=== PATIENT | female | born 1970 | race Hispanic/Latino ===

== ENCOUNTER 2017-04-26 21:45 | Emergency (ER) | payer MEDICAID ==
[2017-04-26 22:16] VITALS: BP 158/103
[2017-04-26] MEDS ORDERED: DILAUDID IM ONE (23:29)
--- NOTE | 2017-04-26 23:34 | Emergency Department Report ---
ED ENT HPI - General Chief complaint: Dental/Oral Stated complaint: MOUTH PAIN/HIGH BP Time Seen by Provider: 04/26/17 23:13 Source: patient Mode of arrival: Ambulatory Limitations: No Limitations - History of Present Illness Initial comments: Patient comes into the ER today with complaints of mouth pain. Patient states that 3 days ago she had all of her bottom teeth extracted. Patient was not placed on antibiotics nor given any pain medications because patient states that she is in pain management. Patient states that she currently takes Lortab 4 times a day through pain management for her chronic back pain. Patient also requesting a referral to orthopedic for her back. Patient states that she called her dentist and the dentist recommended she come to the ER so that may be she can get a pain shot to alleviate some of her pain so that her pain pills may be able to start working better. complaint: other (mouth pain) - Related Data Home Medications Medication Instructions Recorded Confirmed Last Taken Sucralfate [Carafate] 1 gm PO TID 07/08/13 03/23/16 02/23/16 Multivitamin [Multi-Vitamin Daily] 1 each PO DAILY 03/19/14 03/23/16 02/23/16 Pantoprazole [Protonix TAB] 40 mg PO QDAY 03/21/14 03/23/16 02/23/16 Duloxetine HCl [Cymbalta] 40 mg PO DAILY 11/30/15 03/23/16 07/22/16 Nortriptyline [Pamelor] 75 mg PO QDAY 11/30/15 03/23/16 02/23/16 ALPRAZolam [Xanax TAB] 1 mg PO TID 03/23/16 03/23/16 07/23/16 Gabapentin [Neurontin] 900 mg PO TID 03/23/16 03/23/16 Unknown Lipitor 20 mg PO QHS 03/23/16 03/23/16 Unknown Lopid 600 mg PO BID 03/23/16 03/23/16 Unknown Previous Rx's Medication Instructions Recorded Last Taken Type Aspirin [Adult Low Dose Aspirin EC] 81 mg PO DAILY #30 tablet. 02/19/16 13:52 Rx Lisinopril/Hydrochlorothiazide 1 tab PO QDAY #30 tab 02/19/16 Unknown Rx [Zestoretic 20-12.5 mg] Metoprolol [Lopressor TAB] 12.5 mg PO BID #15 tablet 02/19/16 07/22/16 Rx Simvastatin [Zocor TAB] 40 mg PO QHS #30 tablet 02/19/16 02/23/16 Rx HYDROcodone/APAP 5-325 [[place] 1 each PO Q6HR PRN #14 tablet 03/23/16 Unknown Rx 5/325] Oxycodone HCl/Acetaminophen 1 each PO Q6HR PRN #20 tablet 06/22/16 07/22/16 Rx [Percocet 7.5/325 mg] ISOSORBIDE MONOnitrate [Imdur ER] 30 mg PO DAILY #15 tab.er.24h 11/01/16 Unknown Rx Amoxicillin/K Clav Tab [Augmentin 1 tab PO Q12HR #20 tab 04/26/17 Unknown Rx 875 mg] Allergies Allergy/AdvReac Type Severity Reaction Status Date / Time cyclobenzaprine HCl Allergy Hives Verified 03/19/14 07:17 [[facility] ED Dental HPI - General Chief complaint: Dental/Oral Stated complaint: MOUTH PAIN/HIGH BP Time Seen by Provider: 04/26/17 23:13 Source: patient Mode of arrival: Ambulatory Limitations: No Limitations - Related Data Home Medications Medication Instructions Recorded Confirmed Last Taken Sucralfate [Carafate] 1 gm PO TID 07/08/13 03/23/16 02/23/16 Multivitamin [Multi-Vitamin Daily] 1 each PO DAILY 03/19/14 03/23/16 02/23/16 Pantoprazole [Protonix TAB] 40 mg PO QDAY 03/21/14 03/23/16 02/23/16 Duloxetine HCl [Cymbalta] 40 mg PO DAILY 11/30/15 03/23/16 07/22/16 Nortriptyline [Pamelor] 75 mg PO QDAY 11/30/15 03/23/16 02/23/16 ALPRAZolam [Xanax TAB] 1 mg PO TID 03/23/16 03/23/16 07/23/16 Gabapentin [Neurontin] 900 mg PO TID 03/23/16 03/23/16 Unknown Lipitor 20 mg PO QHS 03/23/16 03/23/16 Unknown Lopid 600 mg PO BID 03/23/16 03/23/16 Unknown Previous Rx's Medication Instructions Recorded Last Taken Type Aspirin [Adult Low Dose Aspirin EC] 81 mg PO DAILY #30 tablet. 02/19/16 13:52 Rx Lisinopril/Hydrochlorothiazide 1 tab PO QDAY #30 tab 02/19/16 Unknown Rx [Zestoretic 20-12.5 mg] Metoprolol [Lopressor TAB] 12.5 mg PO BID #15 tablet 02/19/16 07/22/16 Rx Simvastatin [Zocor TAB] 40 mg PO QHS #30 tablet 02/19/16 02/23/16 Rx HYDROcodone/APAP 5-325 [[place] 1 each PO Q6HR PRN #14 tablet 03/23/16 Unknown Rx 5/325] Oxycodone HCl/Acetaminophen 1 each PO Q6HR PRN #20 tablet 06/22/16 07/22/16 Rx [Percocet 7.5/325 mg] ISOSORBIDE MONOnitrate [Imdur ER] 30 mg PO DAILY #15 tab.er.24h 11/01/16 Unknown Rx Amoxicillin/K Clav Tab [Augmentin 1 tab PO Q12HR #20 tab 04/26/17 Unknown Rx 875 mg] Allergies Allergy/AdvReac Type Severity Reaction Status Date / Time cyclobenzaprine HCl Allergy Hives Verified 03/19/14 07:17 [From Flexeril] ED Review of Systems ROS: Stated complaint: MOUTH PAIN/HIGH BP Other details as noted in HPI Constitutional: denies: chills, fever Eyes: denies: eye pain, eye discharge, vision change ENT: other (mouth pain). denies: ear pain, throat pain Respiratory: denies: cough, shortness of breath, wheezing Cardiovascular: denies: chest pain, palpitations Endocrine: no symptoms reported Gastrointestinal: denies: abdominal pain, nausea, diarrhea Genitourinary: denies: urgency, dysuria, discharge Musculoskeletal: denies: back pain, joint swelling, arthralgia Skin: denies: rash, lesions Neurological: denies: headache, weakness, paresthesias Psychiatric: denies: anxiety, depression Hematological/Lymphatic: denies: easy bleeding, easy bruising ED Past Medical Hx - Past Medical History Previous Medical History?: Yes Hx Hypertension: Yes Hx Congestive Heart Failure: No Hx Diabetes: No Hx GERD: Yes Hx Arthritis: Yes Hx Seizures: Yes Hx Psychiatric Treatment: (anxiety) Hx Asthma: No Hx COPD: No Additional medical history: HEP C, foot spurs,. DDD. mass L breast. Chronic pain. Spinal cyst. Diverticulitis - Surgical History Past Surgical History?: Yes Additional Surgical History: - Social History Smoking Status: Never Smoker Substance Use Type: None - Medications Home Medications: Home Medications Medication Instructions Recorded Confirmed Last Taken Type Sucralfate [Carafate] 1 gm PO TID 07/08/13 03/23/16 02/23/16 History Multivitamin [Multi-Vitamin Daily] 1 each PO DAILY 03/19/14 03/23/16 02/23/16 History Pantoprazole [Protonix TAB] 40 mg PO QDAY 03/21/14 03/23/16 02/23/16 History Duloxetine HCl [Cymbalta] 40 mg PO DAILY 11/30/15 03/23/16 07/22/16 History Nortriptyline [Pamelor] 75 mg PO QDAY 11/30/15 03/23/16 02/23/16 History Aspirin [Adult Low Dose Aspirin EC] 81 mg PO DAILY #30 tablet. 02/19/1607/23/16 13:52 Rx Lisinopril/Hydrochlorothiazide 1 tab PO QDAY #30 tab 02/19/16 03/23/16 Unknown Rx [Zestoretic 20-12.5 mg] Metoprolol [Lopressor TAB] 12.5 mg PO BID #15 tablet 02/19/16 03/23/16 07/22/16 Rx Simvastatin [Zocor TAB] 40 mg PO QHS #30 tablet 02/19/16 03/23/16 02/23/16 Rx ALPRAZolam [Xanax TAB] 1 mg PO TID 03/23/16 03/23/16 07/23/16 History Gabapentin [Neurontin] 900 mg PO TID 03/23/16 03/23/16 Unknown History HYDROcodone/APAP 5-325 [[place] 1 each PO Q6HR PRN #14 tablet 03/23/16 Unknown Rx 5/325] Lipitor 20 mg PO QHS 03/23/16 03/23/16 Unknown History Lopid 600 mg PO BID 03/23/16 03/23/16 Unknown History Oxycodone HCl/Acetaminophen 1 each PO Q6HR PRN #20 tablet 06/22/16 07/22/16 Rx [Percocet 7.5/325 mg] ISOSORBIDE MONOnitrate [Imdur ER] 30 mg PO DAILY #15 tab.er.24h 11/01/16 Unknown Rx Amoxicillin/K Clav Tab [Augmentin 1 tab PO Q12HR #20 tab 04/26/17 Unknown Rx 875 mg] ED Physical Exam - General Limitations: No Limitations General appearance: alert, in no apparent distress - Head Head exam: Present: atraumatic, normocephalic - Eye Eye exam: Present: normal appearance, PERRL. Absent: periorbital swelling, periorbital tenderness - ENT ENT exam: Present: mucous membranes moist, TM's normal bilaterally, normal external ear exam, other (entire bottom teeth absent with multiple sutures noted. Diffuse gum inflammation and mild erythematous.) - Neck Neck exam: Present: normal inspection - Respiratory Respiratory exam: Present: normal lung sounds bilaterally. Absent: respiratory distress - Cardiovascular Cardiovascular Exam: Present: regular rate, normal rhythm. Absent: systolic murmur, diastolic murmur, rubs, gallop - GI/Abdominal GI/Abdominal exam: Present: soft, normal bowel sounds - Extremities Exam Extremities exam: Present: normal inspection - Back Exam Back exam: Present: normal inspection - Neurological Exam Neurological exam: Present: alert, oriented X3 - Psychiatric Psychiatric exam: Present: normal affect, normal mood - Skin Skin exam: Present: warm, dry, intact, normal color. Absent: rash ED Course Vital Signs 04/26/17 22:03 Temperature 98.7 F Pulse Rate 99 H Respiratory 20 Rate Blood Pressure 158/103 [Right] O2 Sat by Pulse 100 Oximetry ED Medical Decision Making - Medical Decision Making Patient is nontoxic and hemodynamically stable. I explained to patient that we will not be a little prescribe her any additional pain medication since she is already seen pain management. Patient is in agreement with this. Patient was given intramuscular Dilaudid here in the ER to temporarily subsided her pain. I will also start patient on some antibiotics and refer her to orthopedics for further evaluation of her chronic back problems. Patient is in agreement with this treatment plan the patient is stable for discharge. Critical care attestation.: If time is entered above; I have spent that time in minutes in the direct care of this critically ill patient, excluding procedure time. ED Disposition Clinical Impression: Pain following oral surgery, Chronic back pain Disposition: TO HOME OR SELFCARE Is pt being admited?: No Does the pt Need Aspirin: No Condition: Good Instructions: Toothache (ED), Chronic Back Pain (ED) Prescriptions: Amoxicillin/K Clav Tab [Augmentin 875 mg] 1 tab PO Q12HR #20 tab Referrals: PRIMARY CARE, [Primary Care Provider] - 3-5 Days ERIC ANAYA MD [Staff Physician] - 3-5 Days dentist, your [Other] - 3-5 Days Time of Disposition: 23:37
== END 2017-04-26 23:51 | disposition home or self-care (01) ==
LOC: ED 21:45
DX: M54.9 Dorsalgia, unspecified (principal); G89.29 Other chronic pain; G89.18 Other acute postprocedural pain; I10 Essential (primary) hypertension; K21.9 Gastro-esophageal reflux disease without esophagitis; M19.90 Unspecified osteoarthritis, unspecified site; Z79.82 Long term (current) use of aspirin; Z88.8 Allergy status to other drugs, medicaments and biological substances
CPT/HCPCS: 96372; 99282; J1170

== ENCOUNTER 2017-04-27 07:13 | Emergency (ER) | payer MEDICAID ==
[2017-04-27 07:27] VITALS: BP 179/105
--- NOTE | 2017-04-27 10:48 | Emergency Department Report ---
ED ENT HPI - General Chief complaint: Dental/Oral Stated complaint: MOUTH Time Seen by Provider: 04/27/17 10:33 Source: patient Mode of arrival: Ambulatory Limitations: No Limitations - History of Present Illness Initial comments: This is a 47-year-old female well-nourished with nontoxic or ill in appearance that complains of mouth pain. Patient was seen yesterday by Dr. Andrade and was diagnosed with pain following oral surgery. Patient was prescribed Augmentin yesterday at discharge. Patient stated she has not filled her prescription but they will fill it later today. Patient came in today because of the pain. Patient stated she currently wants pain medication "Lortab 10mg". Patient states that 3 days ago she had a extraction of the bottom teeth. Patient denied being placed on antibiotics after her extractions or given any pain medication because the patient states she is on pain management. Patient also stated that she takes Lortabs 10 mg by mouth daily 4 for management of chronic back pain. Patient stated Lortabs does not help her pain post-dental extractions. Patient denies any significant past medical history. Allergies to Flexeril. Patient describes pain a 10 out of 10 as burning and throbbing. Patient denies any CP, SObB, facial swelling, nausea, vomiting, fever, chills, numbness, tingling, sore throat, difficulty breathing, drooling. MD complaint: other (mouth pain) -: Gradual, days(s) (4) Severity: moderate Severity scale (0 -10): 10 Quality: burning, aching Consistency: constant Improves with: none Worsens with: none Context- Dental: history of dental caries, poor dental care Associated Symptoms: denies: fever, cough, gum swelling, toothache, pain with swallowing, sore throat, tinnitus, hearing loss, discharge from ear, rhinorrhea - Related Data Home Medications Medication Instructions Recorded Confirmed Last Taken Sucralfate [Carafate] 1 gm PO TID 07/08/13 03/23/16 02/23/16 Multivitamin [Multi-Vitamin Daily] 1 each PO DAILY 03/19/14 03/23/16 02/23/16 Pantoprazole [Protonix TAB] 40 mg PO QDAY 03/21/14 03/23/16 02/23/16 Duloxetine HCl [Cymbalta] 40 mg PO DAILY 0103/23/16 07/22/16 Nortriptyline [Pamelor] 75 mg PO QDAY 11/30/15 03/23/16 02/23/16 ALPRAZolam [Xanax TAB] 1 mg PO TID 03/23/16 03/23/16 07/23/16 Gabapentin [Neurontin] 900 mg PO TID 03/23/16 03/23/16 Unknown Lipitor 20 mg PO QHS 03/23/16 03/23/16 Unknown Lopid 600 mg PO BID 03/23/16 03/23/16 Unknown Previous Rx's Medication Instructions Recorded Last Taken Type Aspirin [Adult Low Dose Aspirin EC] 81 mg PO DAILY #30 tablet. 02/19/16 13:52 Rx Lisinopril/Hydrochlorothiazide 1 tab PO QDAY #30 tab 02/19/16 Unknown Rx [Zestoretic 20-12.5 mg] Metoprolol [Lopressor TAB] 12.5 mg PO BID #15 tablet 02/19/16 07/22/16 Rx Simvastatin [Zocor TAB] 40 mg PO QHS #30 tablet 02/19/16 02/23/16 Rx HYDROcodone/APAP 5-325 [[place] 1 each PO Q6HR PRN #14 tablet 03/23/16 Unknown Rx 5/325] Oxycodone HCl/Acetaminophen 1 each PO Q6HR PRN #20 tablet 06/22/16 07/22/16 Rx [Percocet 7.5/325 mg] ISOSORBIDE MONOnitrate [Imdur ER] 30 mg PO DAILY #15 tab.er.24h 11/01/16 Unknown Rx Amoxicillin/K Clav Tab [Augmentin 1 tab PO Q12HR #20 tab 04/26/17 Unknown Rx 875 mg] Ibuprofen [Motrin 600 MG tab] 600 mg PO Q8H PRN #15 tablet 04/27/17 Unknown Rx Allergies Allergy/AdvReac Type Severity Reaction Status Date / Time cyclobenzaprine HCl Allergy Hives Verified 03/19/14 07:17 [From Flexeril] ED Dental HPI - General Chief complaint: Dental/Oral Stated complaint: MOUTH Time Seen by Provider: 04/27/17 10:33 Source: patient Mode of arrival: Ambulatory Limitations: No Limitations - Related Data Home Medications Medication Instructions Recorded Confirmed Last Taken Sucralfate [Carafate] 1 gm PO TID 07/08/13 03/23/16 02/23/16 Multivitamin [Multi-Vitamin Daily] 1 each PO DAILY 03/19/14 03/23/16 02/23/16 Pantoprazole [Protonix TAB] 40 mg PO QDAY 03/21/14 03/23/16 02/23/16 Duloxetine HCl [Cymbalta] 40 mg PO DAILY 11/30/15 03/23/16 07/22/16 Nortriptyline [Pamelor] 75 mg PO QDAY 11/30/15 03/23/16 02/23/16 ALPRAZolam [Xanax TAB] 1 mg PO TID 03/23/16 03/23/16 07/23/16 Gabapentin [Neurontin] 900 mg PO TID 03/23/16 03/23/16 Unknown Lipitor 20 mg PO QHS 03/23/16 03/23/16 Unknown Lopid 600 mg PO BID 03/23/16 03/23/16 Unknown Previous Rx's Medication Instructions Recorded Last Taken Type Aspirin [Adult Low Dose Aspirin EC] 81 mg PO DAILY #30 tablet. 02/19/16 13:52 Rx Lisinopril/Hydrochlorothiazide 1 tab PO QDAY #30 tab 02/19/16 Unknown Rx [Zestoretic 20-12.5 mg] Metoprolol [Lopressor TAB] 12.5 mg PO BID #15 tablet 02/19/16 07/22/16 Rx Simvastatin [Zocor TAB] 40 mg PO QHS #30 tablet 02/19/16 02/23/16 Rx HYDROcodone/APAP 5-325 [[place] 1 each PO Q6HR PRN #14 tablet 03/23/16 Unknown Rx 5/325] Oxycodone HCl/Acetaminophen 1 each PO Q6HR PRN #20 tablet 06/22/16 07/22/16 Rx [Percocet 7.5/325 mg] ISOSORBIDE MONOnitrate [Imdur ER] 30 mg PO DAILY #15 tab.er.24h 11/01/16 Unknown Rx Amoxicillin/K Clav Tab [Augmentin 1 tab PO Q12HR #20 tab 04/26/17 Unknown Rx 875 mg] Ibuprofen [Motrin 600 MG tab] 600 mg PO Q8H PRN #15 tablet 04/27/17 Unknown Rx Allergies Allergy/AdvReac Type Severity Reaction Status Date / Time cyclobenzaprine HCl Allergy Hives Verified 03/19/14 07:17 [From Flexeril] ED Review of Systems ROS: Stated complaint: MOUTH Other details as noted in HPI Constitutional: denies: chills, fever Eyes: denies: eye pain, eye discharge, vision change ENT: denies: ear pain, throat pain Respiratory: denies: cough, shortness of breath, wheezing Cardiovascular: denies: chest pain, palpitations Endocrine: no symptoms reported Gastrointestinal: denies: abdominal pain, nausea, diarrhea Genitourinary: denies: urgency, dysuria, discharge Musculoskeletal: denies: back pain, joint swelling, arthralgia Skin: denies: rash, lesions Neurological: denies: headache, weakness, paresthesias Psychiatric: denies: anxiety, depression Hematological/Lymphatic: denies: easy bleeding, easy bruising ED Past Medical Hx - Past Medical History Previous Medical History?: Yes Hx Hypertension: Yes Hx Congestive Heart Failure: No Hx Diabetes: No Hx GERD: Yes Hx Arthritis: Yes Hx Seizures: Yes Hx Psychiatric Treatment: (anxiety) Hx Asthma: No Hx COPD: No Additional medical history: HEP C, foot spurs,. DDD. mass L breast. Chronic pain. Spinal cyst. Diverticulitis - Surgical History Past Surgical History?: Yes Additional Surgical History: - Social History Smoking Status: Former Smoker Substance Use Type: Prescribed - Medications Home Medications: Home Medications Medication Instructions Recorded Confirmed Last Taken Type Sucralfate [Carafate] 1 gm PO TID 07/08/13 03/23/16 02/23/16 History Multivitamin [Multi-Vitamin Daily] 1 each PO DAILY 03/19/14 03/23/16 02/23/16 History Pantoprazole [Protonix TAB] 40 mg PO QDAY 03/21/14 03/23/16 02/23/16 History Duloxetine HCl [Cymbalta] 40 mg PO DAILY 11/30/15 03/23/16 07/22/16 History Nortriptyline [Pamelor] 75 mg PO QDAY 11/30/15 03/23/16 02/23/16 History Aspirin [Adult Low Dose Aspirin EC] 81 mg PO DAILY #30 tablet. 02/19/1607/23/16 13:52 Rx Lisinopril/Hydrochlorothiazide 1 tab PO QDAY #30 tab 02/19/16 03/23/16 Unknown Rx [Zestoretic 20-12.5 mg] Metoprolol [Lopressor TAB] 12.5 mg PO BID #15 tablet 02/19/16 03/23/16 07/22/16 Rx Simvastatin [Zocor TAB] 40 mg PO QHS #30 tablet 02/19/16 03/23/16 02/23/16 Rx ALPRAZolam [Xanax TAB] 1 mg PO TID 03/23/16 03/23/16 07/23/16 History Gabapentin [Neurontin] 900 mg PO TID 03/23/16 03/23/16 Unknown History HYDROcodone/APAP 5-325 [[place] 1 each PO Q6HR PRN #14 tablet 03/23/16 Unknown Rx 5/325] Lipitor 20 mg PO QHS 03/23/16 03/23/16 Unknown History Lopid 600 mg PO BID 03/23/16 03/23/16 Unknown History Oxycodone HCl/Acetaminophen 1 each PO Q6HR PRN #20 tablet 06/22/16 07/22/16 Rx [Percocet 7.5/325 mg] ISOSORBIDE MONOnitrate [Imdur ER] 30 mg PO DAILY #15 tab.er.24h 11/01/16 Unknown Rx Amoxicillin/K Clav Tab [Augmentin 1 tab PO Q12HR #20 tab 04/26/17 Unknown Rx 875 mg] Ibuprofen [Motrin 600 MG tab] 600 mg PO Q8H PRN #15 tablet 04/27/17 Unknown Rx ED Physical Exam - General Limitations: No Limitations General appearance: alert, in no apparent distress - Head Head exam: Present: atraumatic, normocephalic, normal inspection - Eye Eye exam: Present: normal appearance, PERRL, EOMI. Absent: scleral icterus, conjunctival injection, nystagmus, periorbital swelling, periorbital tenderness Pupils: Present: normal accommodation - ENT ENT exam: Present: mucous membranes moist, TM's normal bilaterally, normal external ear exam - Expanded ENT Exam Expanded Ear exam: Present: normal external inspection Mouth exam: Present: normal external inspection, tongue normal, other (Entire bottom gum is present with sutures. Absent teeth in bottom area. Diffuse gum swelling/inflammation with mild erythematous.). Absent: drooling, trismus, muffled voice, tongue elevation, laceration Throat exam: Positive: normal inspection. Negative: tonsillar erythema, tonsillomegaly, tonsillar exudate, R peritonsillar mass, L peritonsillar mass - Neck Neck exam: Present: normal inspection, full ROM. Absent: tenderness, meningismus, lymphadenopathy, thyromegaly - Respiratory Respiratory exam: Present: normal lung sounds bilaterally. Absent: respiratory distress, wheezes, rales, rhonchi, stridor - Cardiovascular Cardiovascular Exam: Present: regular rate, normal rhythm, normal heart sounds. Absent: bradycardia, tachycardia, irregular rhythm, systolic murmur, diastolic murmur, rubs, gallop - GI/Abdominal GI/Abdominal exam: Present: soft, normal bowel sounds. Absent: distended, tenderness, guarding, rebound, rigid, diminished bowel sounds - Extremities Exam Extremities exam: Present: normal inspection, full ROM, normal capillary refill. Absent: tenderness, pedal edema, joint swelling, calf tenderness - Back Exam Back exam: Present: normal inspection, full ROM. Absent: tenderness, CVA tenderness (R), CVA tenderness (L), muscle spasm, paraspinal tenderness, vertebral tenderness, rash noted - Neurological Exam Neurological exam: Present: alert, oriented X3, CN II-XII intact, normal gait, reflexes normal - Psychiatric Psychiatric exam: Present: normal affect, normal mood - Skin Skin exam: Present: warm, dry, intact, normal color. Absent: rash ED Course Vital Signs 04/27/17 07:23 Temperature 98.2 F Pulse Rate 93 H Respiratory 18 Rate Blood Pressure 179/105 O2 Sat by Pulse 100 Oximetry - Reevaluation(s) Reevaluation #1: 04/27/17 10:53 Patient is walking around the room demanding for "strong pain medication". no signs of distress noted. ED Medical Decision Making - Medical Decision Making Ed course: This is a 47-year-old female that presents with mouth pain following dental extractions/surgery 1- after my physical exam, I instructed patient that it is very important that she fills her antibiotic as prescribed and finish full course of antibiotics. 2 patient received ibuprofen 800 mg by mouth in ED. 3- patient did not receive a narcotic because as per patient the patient take Lortabs 4 today. Patient is also seen by a pain management doctor for chronic lower back pain. I instructed her that she should see her primary care doctor/ pain doctor if symptoms are not subsided with ibuprofen as prescribed At the time of discharge. 4- patient is nontoxic and hematologic stable. Patient is in agreement about seeing her pain managemnet MD as well as taking the prescribed antibiotic. 5- I also notified the patient that she must see a repairer auto clocks/her primary care doctor for the evaluation of her high blood pressure. Patient stated her primary care doctor is currently having her watch her diet for her blood pressure and is prescribed lisinopril. at time time of discharge, the patient does not seem toxic or ill in appearance. No acute signs of distress noted. Patient agrees to discharge treatment plan of care. No further questions noted by the patient. Critical care attestation.: If time is entered above; I have spent that time in minutes in the direct care of this critically ill patient, excluding procedure time. ED Disposition Clinical Impression: History of dental surgery, Pain following oral surgery Chronic back pain Qualifiers: Back pain location: back pain in unspecified location Back pain laterality: unspecified Qualified Code(s): M54.9 - Dorsalgia, unspecified; G89.29 - Other chronic pain Disposition: DC-01 TO HOME OR SELFCARE Is pt being admited?: No Does the pt Need Aspirin: No Condition: Stable Instructions: Amoxicillin/Clavulanate Potassium (By mouth), Ibuprofen (By mouth ) Additional Instructions: Please fill your antibiotics as prescribed. Finish full course of antibiotics as prescribed. Take ibuprofen as prescribed for pain as needed. If pain is not relieved by ibuprofen you must see your pain management doctor for further evaluation/ treatment of your pain. Prescriptions: Ibuprofen [Motrin 600 MG tab] 600 mg PO Q8H PRN #15 tablet PRN Reason: Pain Referrals: PRIMARY CARE, [Primary Care Provider] - 3-5 Days ROCHELLE VIVEROS MD [Staff Physician] - 3-5 Days [place] [Outside] - 3-5 Days [facility] [Outside] - 3-5 Days Forms: Work/School Release Form(ED)
[2017-04-27] MEDS ORDERED: MOTRIN PO ONE (10:53)
== END 2017-04-27 11:33 | disposition home or self-care (01) ==
LOC: ED 07:13
DX: K08.89 Other specified disorders of teeth and supporting structures (principal); G89.29 Other chronic pain; I10 Essential (primary) hypertension; K21.9 Gastro-esophageal reflux disease without esophagitis; M19.90 Unspecified osteoarthritis, unspecified site; F41.9 Anxiety disorder, unspecified; Z87.891 Personal history of nicotine dependence; Z88.8 Allergy status to other drugs, medicaments and biological substances; Z79.82 Long term (current) use of aspirin
CPT/HCPCS: 99282

== ENCOUNTER 2017-05-01 13:00 | Emergency (ER) | payer MEDICAID ==
[2017-05-01 13:12] VITALS: BP 165/99
[2017-05-01] MEDS ORDERED: TORADOL IM ONE (13:48)
--- NOTE | 2017-05-01 14:04 | Emergency Department Report ---
Entered by JAVIER ESTRADA, acting as scribe for EBER VELIZ NP. ED ENT HPI - General Chief complaint: Dental/Oral Stated complaint: MOUTH INFECTION/LIPS SWOLLEN Time Seen by Provider: 05/01/17 13:41 Source: patient Mode of arrival: Ambulatory Limitations: No Limitations - History of Present Illness MD complaint: tooth pain (bottom teeth) Onset/Timin -: week(s) Location: tooth # (all bottom teeth) Severity: moderate Severity scale (0 -10): 3 Quality: aching Consistency: constant Improves with: none Worsens with: movement Context- Dental: other (teeth removed ) Associated Symptoms: toothache. denies: fever, cough, sore throat, hearing loss , discharge from ear, rhinorrhea - Related Data Home Medications Medication Instructions Recorded Confirmed Last Taken Sucralfate [Carafate] 1 gm PO TID 07/08/13 03/23/16 02/23/16 Multivitamin [Multi-Vitamin Daily] 1 each PO DAILY 03/19/14 03/23/16 02/23/16 Pantoprazole [Protonix TAB] 40 mg PO QDAY 03/21/14 03/23/16 02/23/16 Duloxetine HCl [Cymbalta] 40 mg PO DAILY 11/30/15 03/23/16 07/22/16 Nortriptyline [Pamelor] 75 mg PO QDAY 11/30/15 03/23/16 02/23/16 ALPRAZolam [Xanax TAB] 1 mg PO TID 03/23/16 03/23/16 07/23/16 Gabapentin [Neurontin] 900 mg PO TID 03/23/16 03/23/16 Unknown Lipitor 20 mg PO QHS 03/23/16 03/23/16 Unknown Lopid 600 mg PO BID 03/23/16 03/23/16 Unknown Previous Rx's Medication Instructions Recorded Last Taken Type Aspirin [Adult Low Dose Aspirin EC] 81 mg PO DAILY #30 tablet. 02/19/16 13:52 Rx Lisinopril/Hydrochlorothiazide 1 tab PO QDAY #30 tab 02/19/16 Unknown Rx [Zestoretic 20-12.5 mg] Metoprolol [Lopressor TAB] 12.5 mg PO BID #15 tablet 02/19/16 07/22/16 Rx Simvastatin [Zocor TAB] 40 mg PO QHS #30 tablet 02/19/16 02/23/16 Rx HYDROcodone/APAP 5-325 [[place] 1 each PO Q6HR PRN #14 tablet 03/23/16 Unknown Rx 5/325] Oxycodone HCl/Acetaminophen 1 each PO Q6HR PRN #20 tablet 06/22/16 07/22/16 Rx [Percocet 7.5/325 mg] ISOSORBIDE MONOnitrate [Imdur ER] 30 mg PO DAILY #15 tab.er.24h 11/01/16 Unknown Rx Amoxicillin/K Clav Tab [Augmentin 1 tab PO Q12HR #20 tab 04/26/17 Unknown Rx 875 mg] Ibuprofen [Motrin 600 MG tab] 600 mg PO Q8H PRN #15 tablet 04/27/17 Unknown Rx Chlorhexidine Mouthwash [Peridex] 15 ml MM BID #1 bottle 05/01/17 Unknown Rx traMADol [Ultram 50 MG tab] 50 mg PO BID PRN #12 tablet 05/01/17 Unknown Rx Allergies Allergy/AdvReac Type Severity Reaction Status Date / Time cyclobenzaprine HCl Allergy Hives Verified 03/19/14 07:[facility] Dental HPI - General Chief complaint: Dental/Oral Stated complaint: MOUTH INFECTION/LIPS SWOLLEN Time Seen by Provider: 05/01/17 13:41 Source: patient Mode of arrival: Ambulatory Limitations: No Limitations - History of Present Illness Initial comments: 47 year old female with PMHx of HTN and GERD, presents to the ED with c/o right sided toothache that began 1 week ago. Patient reports she had her bottom teeth removed 1 week ago and caused aching and swelling. Patient reports gum ache but denies headache or dizziness, fever, chills, SOB, chest pain, nausea, vomiting, visual changes, numbness, and tingling. She taken ibuprofen with no relief and is compliant with her medication. Patient reports that she follows up with her pain Dr in [facility] on May 07. MD complaint: tooth pain (bottom teeth) Onset/Timin -: week(s) Severity: moderate Consistency: constant Improves with: none Worsens with: eating, chewing, movement Context- Dental: history of dental caries Dental Associated Symptons: Yes: Gum Swelling - Related Data Home Medications Medication Instructions Recorded Confirmed Last Taken Sucralfate [Carafate] 1 gm PO TID 07/08/13 03/23/16 02/23/16 Multivitamin [Multi-Vitamin Daily] 1 each PO DAILY 03/19/14 03/23/16 02/23/16 Pantoprazole [Protonix TAB] 40 mg PO QDAY 03/21/14 03/23/16 02/23/16 Duloxetine HCl [Cymbalta] 40 mg PO DAILY 11/30/15 03/23/16 07/22/16 Nortriptyline [Pamelor] 75 mg PO QDAY 11/30/15 03/23/16 02/23/16 ALPRAZolam [Xanax TAB] 1 mg PO TID 03/23/16 03/23/16 07/23/16 Gabapentin [Neurontin] 900 mg PO TID 03/23/16 03/23/16 Unknown Lipitor 20 mg PO QHS 03/23/16 03/23/16 Unknown Lopid 600 mg PO BID 03/23/16 03/23/16 Unknown Previous Rx's Medication Instructions Recorded Last Taken Type Aspirin [Adult Low Dose Aspirin EC] 81 mg PO DAILY #30 tablet. 02/19/16 13:52 Rx Lisinopril/Hydrochlorothiazide 1 tab PO QDAY #30 tab 02/19/16 Unknown Rx [Zestoretic 20-12.5 mg] Metoprolol [Lopressor TAB] 12.5 mg PO BID #15 tablet 02/19/16 07/22/16 Rx Simvastatin [Zocor TAB] 40 mg PO QHS #30 tablet 02/19/16 02/23/16 Rx HYDROcodone/APAP 5-325 [[place] 1 each PO Q6HR PRN #14 tablet 03/23/16 Unknown Rx 5/325] Oxycodone HCl/Acetaminophen 1 each PO Q6HR PRN #20 tablet 06/22/16 07/22/16 Rx [Percocet 7.5/325 mg] ISOSORBIDE MONOnitrate [Imdur ER] 30 mg PO DAILY #15 tab.er.24h 11/01/16 Unknown Rx Amoxicillin/K Clav Tab [Augmentin 1 tab PO Q12HR #20 tab 04/26/17 Unknown Rx 875 mg] Ibuprofen [Motrin 600 MG tab] 600 mg PO Q8H PRN #15 tablet 04/27/17 Unknown Rx Chlorhexidine Mouthwash [Peridex] 15 ml MM BID #1 bottle 05/01/17 Unknown Rx traMADol [Ultram 50 MG tab] 50 mg PO BID PRN #12 tablet 05/01/17 Unknown Rx Allergies Allergy/AdvReac Type Severity Reaction Status Date / Time cyclobenzaprine HCl Allergy Hives Verified 03/19/14 07:17 [From Flexeril] ED Review of Systems Comment: All other systems reviewed and negative Constitutional: no symptoms reported. denies: chills, diaphoresis, fever, weakness ENT: dental pain (bottom teeth ). denies: ear pain, throat pain, hearing loss, congestion Respiratory: denies: cough, shortness of breath, wheezing Cardiovascular: denies: chest pain, palpitations Gastrointestinal: denies: abdominal pain, nausea, diarrhea Musculoskeletal: denies: back pain, joint swelling, arthralgia Skin: denies: rash, lesions Neurological: denies: headache, weakness, paresthesias ED Past Medical Hx - Past Medical History Hx Hypertension: Yes Hx Congestive Heart Failure: No Hx Diabetes: No Hx GERD: Yes Hx Arthritis: Yes Hx Seizures: Yes Hx Psychiatric Treatment: (anxiety) Hx Asthma: No Hx COPD: No Additional medical history: HEP C, foot spurs,. DDD. mass L breast. Chronic pain. Spinal cyst. Diverticulitis - Surgical History Additional Surgical History: - Social History Smoking Status: Never Smoker Substance Use Type: None - Medications Home Medications: Home Medications Medication Instructions Recorded Confirmed Last Taken Type Sucralfate [Carafate] 1 gm PO TID 07/08/13 03/23/16 02/23/16 History Multivitamin [Multi-Vitamin Daily] 1 each PO DAILY 03/19/14 03/23/16 02/23/16 History Pantoprazole [Protonix TAB] 40 mg PO QDAY 03/21/14 03/23/16 02/23/16 History Duloxetine HCl [Cymbalta] 40 mg PO DAILY 11/30/15 03/23/16 07/22/16 History Nortriptyline [Pamelor] 75 mg PO QDAY 11/30/15 03/23/16 02/23/16 History Aspirin [Adult Low Dose Aspirin EC] 81 mg PO DAILY #30 tablet. 02/19/1607/23/16 13:52 Rx Lisinopril/Hydrochlorothiazide 1 tab PO QDAY #30 tab 02/19/16 03/23/16 Unknown Rx [Zestoretic 20-12.5 mg] Metoprolol [Lopressor TAB] 12.5 mg PO BID #15 tablet 02/19/16 03/23/16 07/22/16 Rx Simvastatin [Zocor TAB] 40 mg PO QHS #30 tablet 02/19/16 03/23/16 02/23/16 Rx ALPRAZolam [Xanax TAB] 1 mg PO TID 03/23/16 03/23/16 07/23/16 History Gabapentin [Neurontin] 900 mg PO TID 03/23/16 03/23/16 Unknown History HYDROcodone/APAP 5-325 [[place] 1 each PO Q6HR PRN #14 tablet 03/23/16 Unknown Rx 5/325] Lipitor 20 mg PO QHS 03/23/16 03/23/16 Unknown History Lopid 600 mg PO BID 03/23/16 03/23/16 Unknown History Oxycodone HCl/Acetaminophen 1 each PO Q6HR PRN #20 tablet 06/22/16 07/22/16 Rx [Percocet 7.5/325 mg] ISOSORBIDE MONOnitrate [Imdur ER] 30 mg PO DAILY #15 tab.er.24h 11/01/16 Unknown Rx Amoxicillin/K Clav Tab [Augmentin 1 tab PO Q12HR #20 tab 04/26/17 Unknown Rx 875 mg] Ibuprofen [Motrin 600 MG tab] 600 mg PO Q8H PRN #15 tablet 04/27/17 Unknown Rx Chlorhexidine Mouthwash [Peridex] 15 ml MM BID #1 bottle 05/01/17 Unknown Rx traMADol [Ultram 50 MG tab] 50 mg PO BID PRN #12 tablet 05/01/17 Unknown Rx ED Physical Exam - General Limitations: No Limitations General appearance: alert, in no apparent distress - Head Head exam: Present: atraumatic, normocephalic - Eye Eye exam: Present: normal appearance, PERRL, EOMI Pupils: Present: normal accommodation - ENT ENT exam: Present: normal exam, normal orophraynx, mucous membranes moist - Neck Neck exam: Present: normal inspection, full ROM. Absent: tenderness, lymphadenopathy - Respiratory Respiratory exam: Present: normal lung sounds bilaterally. Absent: respiratory distress, wheezes, rales, rhonchi, stridor - Cardiovascular Cardiovascular Exam: Present: regular rate, normal rhythm, normal heart sounds. Absent: systolic murmur, diastolic murmur - GI/Abdominal GI/Abdominal exam: Present: soft, normal bowel sounds. Absent: distended, tenderness, guarding, rebound, rigid, diminished bowel sounds - Extremities Exam Extremities exam: Present: normal inspection, full ROM, normal capillary refill. Absent: tenderness, pedal edema, joint swelling - Back Exam Back exam: Present: normal inspection, full ROM - Neurological Exam Neurological exam: Present: alert, oriented X3 - Psychiatric Psychiatric exam: Present: normal affect, normal mood - Skin Skin exam: Present: warm, dry, intact. Absent: rash ED Course Vital Signs 05/01/17 13:06 Temperature 98.2 F Pulse Rate 99 H Respiratory 18 Rate Blood Pressure 165/99 O2 Sat by Pulse 100 Oximetry ED Medical Decision Making - Medical Decision Making pt advises s/p multiple tooth extractions 2 days ago on augmentin abx however ibuprofen not controlling pain , pt called dentist advised to seek ed for pain controol, however pt is seeing pain managment rx lortab 10/325 po qid prn pain , pt advised out of pain medication and cannot see pain management until 2016 plan , tramadol po bid until pain management follow up, discussed same with patient , patient verbalized agreement and understanding with discharge plan. ED Disposition Clinical Impression: Pain, dental Disposition: DC-01 TO HOME OR SELFCARE Is pt being admited?: No Does the pt Need Aspirin: No Condition: Good Instructions: Dental Caries (ED) Additional Instructions: follow up with your dentist aj, follow up with pain management aj Prescriptions: Chlorhexidine Mouthwash [Peridex] 15 ml MM BID #1 bottle traMADol [Ultram 50 MG tab] 50 mg PO BID PRN #12 tablet PRN Reason: Pain Forms: Work/School Release Form(ED) Time of Disposition: 14:04 This documentation as recorded by the SEAN rubio PEARL,accurately reflects the service I personally performed and the decisions made by me,EBER VELIZ, [employer].
== END 2017-05-01 14:14 | disposition home or self-care (01) ==
LOC: ED 13:00
DX: K08.89 Other specified disorders of teeth and supporting structures (principal); I10 Essential (primary) hypertension
CPT/HCPCS: 96372; 99281; J1885

== ENCOUNTER 2017-05-01 18:41 | Emergency (ER) | payer MEDICAID | END 2017-05-01 19:15 | disposition left against medical advice (07) | LOC: ED 18:41 | DX: R22.0 Localized swelling, mass and lump, head (principal); Z53.21 Procedure and treatment not carried out due to patient leaving prior to being seen by health care provider ==

== ENCOUNTER 2017-06-20 14:24 | Emergency (ER) | payer MEDICAID ==
[2017-06-20 14:54] VITALS: BP 113/79
== END 2017-06-20 20:00 | disposition left against medical advice (07) ==
LOC: ED 14:24
DX: M54.2 Cervicalgia (principal); M19.90 Unspecified osteoarthritis, unspecified site; K21.9 Gastro-esophageal reflux disease without esophagitis; I10 Essential (primary) hypertension; F41.9 Anxiety disorder, unspecified; Z88.8 Allergy status to other drugs, medicaments and biological substances; Z53.21 Procedure and treatment not carried out due to patient leaving prior to being seen by health care provider

== ENCOUNTER 2017-06-23 06:47 | Emergency (ER) | payer MEDICAID | END 2017-06-23 06:55 | disposition left against medical advice (07) | LOC: ED 06:47 | DX: M54.2 Cervicalgia (principal); M54.9 Dorsalgia, unspecified; Z53.21 Procedure and treatment not carried out due to patient leaving prior to being seen by health care provider ==

== ENCOUNTER 2017-08-11 10:38 | Emergency (ER) | payer MEDICAID ==
[2017-08-11 11:26] VITALS: BP 148/72
[2017-08-11] MEDS ORDERED: BACTRIM DS PO ONE (14:44)
[2017-08-11] MEDS ORDERED: NORCO 5/325 PO ONE (14:44)
[2017-08-11] MEDS ORDERED: ZOVIRAX PO ONE ×2 (14:44→15:00)
--- NOTE | 2017-08-11 15:07 | Emergency Department Report ---
HPI - General Chief Complaint: Skin/Abscess/Foreign Body Time Seen by Provider: 08/11/17 14:18 - HPI HPI: This is a 47-year-old female presents to the emergency department from home with complaint of a 4 day history of a painful red rash to the left of her left breast as well as in the left armpit that she is concerned is a second outbreak of shingles. It is tender to palpation and keeps her from getting sleep, when she tries and lays on her left side. She is also concerned as she is supposed to have reconstructive mouth surgery on Friday. She has an appointment with her primary care physician, Dr Matthew Lopez, tomorrow morning. She has not taken anything for her symptoms prior to presentation. She has a history of hepatitis, hypertension, anxiety, diverticulosis. No recent travel or sick contacts at home. ED Past Medical Hx - Past Medical History Hx Hypertension: Yes Hx Congestive Heart Failure: No Hx Diabetes: No Hx GERD: Yes Hx Liver Disease: Yes (HEPATITIS C) Hx Arthritis: Yes Hx Seizures: Yes Hx Psychiatric Treatment: Yes (ANXIETY) Hx Asthma: No Hx COPD: No Additional medical history: foot spurs,. DDD. mass L breast. Chronic pain. Spinal cyst. Diverticulitis - Surgical History Additional Surgical History: - Social History Smoking Status: Never Smoker Substance Use Type: None - Medications Home Medications: Home Medications Medication Instructions Recorded Confirmed Last Taken Type Nortriptyline [Pamelor] 75 mg PO QDAY 11/30/15 06/26/17 02/23/16 History ALPRAZolam [Xanax TAB] 1 mg PO TID 03/23/16 06/26/17 07/23/16 History Gabapentin [Neurontin] 900 mg PO TID 03/23/16 06/26/17 Unknown History Bisacodyl [Dulcolax suppos] 10 mg [place] QDAY PRN #20 supp.rect 06/28/17 Unknown Rx Docusate Sodium [Colace CAP] 100 mg PO BID #60 capsule 06/28/17 Unknown Rx Lisinopril/Hydrochlorothiazide 1 tab PO QDAY #30 tab 06/28/17 Unknown Rx [Zestoretic 20-12.5 mg] Magnesium Hydroxide [Milk of 30 ml PO Q4H PRN #20 oral.liqd 06/28/17 Unknown Rx Magnesia] Polyethylene Glycol 3350 [Miralax 17 gm PO QDAY #30 powd.pack 06/28/17 Unknown Rx 3350] Acyclovir 800 mg PO Q8H #21 tablet 08/11/17 Unknown Rx HYDROcodone/ACETAMINOPHEN [[place] 1 each PO Q6H PRN #8 tablet 08/11/17 Unknown Rx 5-325 Tablet] Sulfamethoxazole/Trimethoprim 1 each PO BID #14 tablet 08/11/17 Unknown Rx [Bactrim DS TAB] ED Review of Systems ROS: Stated complaint: POSS SHINGLES Other details as noted in HPI Comment: All other systems reviewed and negative Constitutional: denies: chills, fever Eyes: denies: eye pain, eye discharge, vision change ENT: denies: ear pain, throat pain Respiratory: denies: cough, shortness of breath, wheezing Cardiovascular: denies: chest pain, palpitations Gastrointestinal: denies: abdominal pain, nausea, diarrhea Genitourinary: denies: urgency, dysuria, discharge Musculoskeletal: denies: back pain, joint swelling, arthralgia Skin: rash, lesions, change in color Neurological: denies: headache, weakness, paresthesias Physical Exam - Physical Exam Vital Signs: Vital Signs 08/11/17 11:20 Temperature 98.2 F Pulse Rate 99 H Respiratory 20 Rate Blood Pressure 148/72 Physical Exam: GENERAL: The patient is well-developed well-nourished. HENT: Normocephalic. Atraumatic. Patient has moist mucous membranes. EYES: Extraocular motions are intact. Pupils equal reactive to light bilaterally. NECK: Supple. Trachea is midline. CHEST/LUNGS: Clear to auscultation. There is no respiratory distress noted. HEART/CARDIOVASCULAR: Regular. There is no tachycardia. There is no gallop rub or murmur. ABDOMEN: Abdomen is soft, nontender. Patient has normal bowel sounds. There is no abdominal distention. SKIN: There is a area of confluent erythema just lateral to the left breast and a small raised lesion to the posterior portion of this erythema that could be consistent with a small abscess. There are also a few small areas of erythema and possibly small papules seen in the superior portion of the left axilla. This rash and these lesions could be consistent with either a cellulitis or early and undifferentiated herpes zoster. There is no current bleeding, bleeding, drainage. NEURO: The patient is awake, alert, and oriented. The patient is cooperative. The patient has no focal neurologic deficits. The patient has normal speech and gait. MUSCULOSKELETAL: There is no tenderness or deformity. There is no evidence of acute injury. Body Four View: 1 - erythema ED Course Vital Signs 08/11/17 11:20 Temperature 98.2 F Pulse Rate 99 H Respiratory 20 Rate Blood Pressure 148/72 ED Medical Decision Making - Medical Decision Making 47-year-old female presents with 4 day history of a rash to the lateral portion of the left breast going towards the flank/torso as well as a few areas in the left armpit. She has a previous history of diagnosed shingles. This rash and lesions appears more consistent with a cellulitis as it is confluent with erythema and only has one area towards the posterior portion that could be a small abscess. However it cannot be completely ruled out that it is a herpes zoster shingles rash and there have just not been much development in terms of vesicle formation. The patient will be covered for both and was given Bactrim DS, acyclovir and something for pain. She has an appointment in the morning with her PCP and has been encouraged to keep that appointment for a second opinion and further evaluation. - Differential Diagnosis cellulitis, dermatitis, herpes zoster Critical Care Time: No Critical care attestation.: If time is entered above; I have spent that time in minutes in the direct care of this critically ill patient, excluding procedure time. ED Disposition Clinical Impression: Herpes zoster Qualifiers: Herpes zoster complications: without complications Qualified Code(s): B02.9 - Zoster without complications Cellulitis Qualifiers: Site of cellulitis: trunk Site of cellulitis of trunk: chest wall Qualified Code(s): L03.313 - Cellulitis of chest wall Disposition: DC-01 TO HOME OR SELFCARE Is pt being admited?: No Condition: Stable Instructions: Herpes Zoster (ED), Cellulitis (ED) Additional Instructions: Please follow-up with your primary care physician in the morning as previously scheduled. Return to the emergency Department with any worsening of your symptoms or any acute distress. You have been prescribed a medication that is sedating and therefore should not be taken prior to driving, working, and responsible for children and in no way should be mixed with alcohol of any quantity. Prescriptions: Acyclovir 800 mg PO Q8H #21 tablet HYDROcodone/ACETAMINOPHEN [[place] 5-325 Tablet] 1 each PO Q6H PRN #8 tablet PRN Reason: Pain Sulfamethoxazole/Trimethoprim [Bactrim DS TAB] 1 each PO BID #14 tablet Referrals: CONNOR LORD MD [Primary Care Provider] - [facility] [place] Time of Disposition: 15:13
== END 2017-08-11 15:59 | disposition home or self-care (01) ==
LOC: ED 10:38
DX: B02.9 Zoster without complications (principal); L03.313 Cellulitis of chest wall; K21.9 Gastro-esophageal reflux disease without esophagitis; M19.90 Unspecified osteoarthritis, unspecified site; F41.9 Anxiety disorder, unspecified; R56.9 Unspecified convulsions; G89.29 Other chronic pain; I10 Essential (primary) hypertension; Z88.8 Allergy status to other drugs, medicaments and biological substances
CPT/HCPCS: 99282

== ENCOUNTER 2017-08-13 15:39 | Emergency (ER) | payer MEDICAID ==
[2017-08-13 16:10] VITALS: BP 123/78
== END 2017-08-14 00:54 | disposition left against medical advice (07) ==
LOC: ED 15:39
DX: R11.10 Vomiting, unspecified (principal); Z53.21 Procedure and treatment not carried out due to patient leaving prior to being seen by health care provider

== ENCOUNTER 2017-10-22 11:50 | Emergency (ER) | payer MEDICAID ==
--- NOTE | 2017-10-22 13:51 | Emergency Department Report ---
Chief Complaint: Upper Respiratory Infection Stated Complaint: FLU LIKE SYMPTOMS Time Seen by Provider: 10/22/17 12:52 - Exam Vital Signs: Vital Signs 10/22/17 11:58 Temperature 98.1 F Pulse Rate 95 H Respiratory 16 Rate Blood Pressure 153/107 O2 Sat by Pulse 97 Oximetry MSE screening note: Focused history and physical exam performed. Due to findings the following was ordered: ED Disposition for MSE Condition: Stable Referrals: PRIMARY CARE, [Primary Care Provider] - 3-5 Days
[2017-10-22 14:13] LABS: Basophils % (Auto) 0.9 % (0.0-1.8); Eosinophils % (Auto) 3.5 % (0.0-4.3); Hematocrit 38.2 % (30.3-42.9); Hemoglobin 12.8 gm/dl (10.1-14.3); Mean Corpuscular HGB Conc 34 % (30-34); Mean Corpuscular Hemoglobin 30 pg (28-32); Mean Corpuscular Volume 88 fl (79-97); Platelet Count 198 K/mm3 (140-440); Red Blood Count 4.35 M/mm3 (3.65-5.03); Red Cell Distribution Width 14.7 % (13.2-15.2); White Blood Count 8.7 K/mm3 (4.5-11.0)
[2017-10-22 14:23] LABS: INR 0.93 (0.87-1.13)
[2017-10-22 14:24] LABS: Partial Thromboplastin Time 27.4 Sec. (24.2-36.6)
--- NOTE | 2017-10-22 14:24 | XRay Report ---
ROUTINE CHEST, TWO VIEWS: HISTORY: chest pain. The trachea, heart, mediastinal contour, lung rodríguez and bony thorax are unremarkable. IMPRESSION: Unremarkable chest x-ray.
[2017-10-22] MEDS ORDERED: ZOFRAN ODT PO ONE (14:26)
[2017-10-22] MEDS ORDERED: NORCO 5/325 PO ONE ×2 (14:27→18:35)
[2017-10-22 14:30] LABS: Anion Gap 16 mmol/L; BUN/Creatinine Ratio 24; Blood Urea Nitrogen 12 mg/dL (7-17); Calcium 9.5 mg/dL (8.4-10.2); Carbon Dioxide 27 mmol/L (22-30); Chloride 97.9 mmol/L (98-107); Glucose 158 mg/dL (65-100); Sodium 137 mmol/L (137-145)
--- NOTE | 2017-10-22 15:55 | Emergency Department Report ---
HPI - General Chief Complaint: Upper Respiratory Infection Time Seen by Provider: 10/22/17 12:52 - HPI HPI: She is a 47-year-old female with a history of high blood pressure medication who presents to ED complaining of chest pain. Patient states chest pain began 3 days ago. Patient was initially triaged and complained of productive cough with yellow sputum for the past 3 weeks. After I went in the room to examine the patient she states she is here for chest pain and not cough. Patient describes chest pain as localized left-sided. Patient states pain is nonradiating. Patient also admits she has dressed cyst on her left breast and has been followed up by breast specialist and get a mammogram done every 6 months. Patient also states she sees Dr. Christina Brooks out of [facility]. Patient states his last visit was 2-3 weeks ago and ankle was done which shows an ejection fraction of 45% and she was cleared for oral surgery which is to happen 10/31/2017 at [facility]. Patient denies any history of prior heart attack. ED Past Medical Hx - Past Medical History Previous Medical History?: Yes Hx Hypertension: Yes Hx Congestive Heart Failure: No Hx Diabetes: No Hx GERD: Yes Hx Liver Disease: Yes (HEPATITIS C) Hx Arthritis: Yes Hx Seizures: Yes Hx Psychiatric Treatment: Yes (ANXIETY) Hx Asthma: No Hx COPD: No Additional medical history: foot spurs,. DDD. mass L breast. Chronic pain. Spinal cyst. Diverticulitis - Surgical History Past Surgical History?: Yes Additional Surgical History: , heart cath - Social History Smoking Status: Former Smoker Substance Use Type: Alcohol, Prescribed - Medications Home Medications: Home Medications Medication Instructions Recorded Confirmed Last Taken Type Nortriptyline [Pamelor] 75 mg PO QDAY 11/30/15 06/26/17 02/23/16 History ALPRAZolam [Xanax TAB] 1 mg PO TID 03/23/16 06/26/17 07/23/16 History Gabapentin [Neurontin] 900 mg PO TID 03/23/16 06/26/17 Unknown History Bisacodyl [Dulcolax suppos] 10 mg [place] QDAY PRN #20 supp.rect 06/28/17 Unknown Rx Docusate Sodium [Colace CAP] 100 mg PO BID #60 capsule 06/28/17 Unknown Rx Lisinopril/Hydrochlorothiazide 1 tab PO QDAY #30 tab 06/28/17 Unknown Rx [Zestoretic 20-12.5 mg] Magnesium Hydroxide [Milk of 30 ml PO Q4H PRN #20 oral.liqd 06/28/17 Unknown Rx Magnesia] Polyethylene Glycol 3350 [Miralax 17 gm PO QDAY #30 powd.pack 06/28/17 Unknown Rx 3350] Acyclovir 800 mg PO Q8H #21 tablet 08/11/17 Unknown Rx HYDROcodone/ACETAMINOPHEN [[place] 1 each PO Q6H PRN #8 tablet 08/11/17 Unknown Rx 5-325 Tablet] Sulfamethoxazole/Trimethoprim 1 each PO BID #14 tablet 08/11/17 Unknown Rx [Bactrim DS TAB] ED Review of Systems ROS: Stated complaint: FLU LIKE SYMPTOMS Other details as noted in HPI Constitutional: denies: chills, fever Eyes: denies: eye pain, eye discharge, vision change ENT: denies: ear pain, throat pain, dental pain, congestion Respiratory: denies: cough, shortness of breath, SOB with exertion, wheezing Cardiovascular: denies: chest pain, palpitations Endocrine: no symptoms reported Gastrointestinal: denies: abdominal pain, nausea, vomiting, diarrhea Genitourinary: denies: urgency, dysuria, discharge Musculoskeletal: denies: back pain, joint swelling, arthralgia Skin: denies: rash, lesions Neurological: denies: headache, weakness, paresthesias Psychiatric: denies: anxiety, depression Hematological/Lymphatic: denies: easy bleeding, easy bruising Physical Exam - Physical Exam Vital Signs: Vital Signs 10/22/17 10/22/17 11:58 14:44 Temperature 98.1 F Pulse Rate 95 H Respiratory 16 18 Rate Blood Pressure 153/107 O2 Sat by Pulse 97 Oximetry Physical Exam: GENERAL: Alert and oriented x3, no apparent distress, Normal Gait, atraumatic. HEAD: Head is normocephalic and a-traumatic. NECK: Supple. Non edematous, No carotid bruits. No lymphadenopathy or thyromegaly. No C-spine tenderness LUNGS: Symetrical with respiration, No wheezing, no rales or crackles, CTAB. HEART: S1, S2 present, regular rate and rhythm without murmur, no rubs, no gallops. Non tender to palpation ABDOMEN: No organomegaly was noted,Positive bowel sounds, soft, and non- distended. . Nontender to palpation on all Quadrants, NO CVA tenderness. BACK: Full range of motion, no spinal tenderness, nontender to palpation. BREAST: Symetrical, Supple bilaterally, cystic mass at Left breast , non tender EXTREMITIES/MUSCULOSKELETAL: No cyanosis, clubbing, rash, lesions or edema. Full ROM bilaterally. UE/LE Pulses 2+ bilaterally. LE and UE 5+ strength bilaterally, NEUROLOGIC: The patient is cooperative with no focal neurologic deficits.Normal speech. Normal sensation in bilateral upper and lower extremities, No loss of sensation, SKIN: Warm and dry, No lesions, No ulceration or induration present. ED Course Vital Signs 10/22/17 10/22/17 11:58 14:44 Temperature 98.1 F Pulse Rate 95 H Respiratory 16 18 Rate Blood Pressure 153/107 O2 Sat by Pulse 97 Oximetry - Reevaluation(s) Reevaluation #1: Patient reports feeling much better than when she came in earlier. I discussed case with guzman Hebert to get a d-dimer , D-dimer pending. 10/22/17 16:49 - Consultations Consultation #1: I contacted the case management director on-call for [facility] Dr. Pacheco and discussed case with the patient. He informed that he does not have a computer screen he would have to look up the patient to give more information. He states he will call back within the hour. 10/22/17 18:20 Consultation #2: I spoke with Dr. Pacheco from [facility] who confirms from that the patient's last echo was acceptable at EF 45-50 % and patient can go home and follow up outpatient EKG and cardiac workup is negative. 10/22/17 18:54 11/06/17 07:37 ED Medical Decision Making - Lab Data Result diagrams: 10/22/17 13:46 10/22/17 13:46 Laboratory Last Values WBC 8.7 K/mm3 (4.5-11.0) 10/22/17 13:46 RBC 4.35 M/mm3 (3.65-5.03) 10/22/17 13:46 Hgb 12.8 gm/dl (10.1-14.3) 10/22/17 13:46 Hct 38.2 % (30.3-42.9) 10/22/17 13:46 MCV 88 fl (79-97) 10/22/17 13:46 MCH 30 pg (28-32) 10/22/17 13:46 MCHC 34 % (30-34) 10/22/17 13:46 RDW 14.7 % (13.2-15.2) 10/22/17 13:46 Plt Count 198 K/mm3 (140-440) 10/22/17 13:46 Lymph % (Auto) 34.2 % (13.4-35.0) 10/22/17 13:46 [place] % (Auto) 8.2 % (0.0-7.3) H 10/22/17 13:46 Eos % (Auto) 3.5 % (0.0-4.3) 10/22/17 13:46 Baso % (Auto) 0.9 % (0.0-1.8) 10/22/17 13:46 Lymph # 3.0 K/mm3 (1.2-5.4) 10/22/17 13:46 [place] # 0.7 K/mm3 (0.0-0.8) 10/22/17 13:46 Eos # 0.3 K/mm3 (0.0-0.4) 10/22/17 13:46 Baso # 0.1 K/mm3 (0.0-0.1) 10/22/17 13:46 Seg Neutrophils % 53.2 % (40.0-70.0) 10/22/17 13:46 Seg Neutrophils # 4.7 K/mm3 (1.8-7.7) 10/22/17 13:46 PT 12.9 Sec. (12.2-14.9) 10/22/17 13:46 INR 0.93 (0.87-1.13) 10/22/17 13:46 APTT 27.4 Sec. (24.2-36.6) 10/22/17 13:46 Sodium 137 mmol/L (137-145) 10/22/17 13:46 Potassium 4.0 mmol/L (3.6-5.0) 10/22/17 13:46 Chloride 97.9 mmol/L (98-107) L 10/22/17 13:46 Carbon Dioxide 27 mmol/L (22-30) 10/22/17 13:46 Anion Gap 16 mmol/L 10/22/17 13:46 BUN 12 mg/dL (7-17) 10/22/17 13:46 Creatinine 0.5 mg/dL (0.7-1.2) L 10/22/17 13:46 Estimated GFR > 60 ml/min 10/22/17 13:46 BUN/Creatinine Ratio 24 % 10/22/17 13:46 Glucose 158 mg/dL (65-100) H 10/22/17 13:46 Calcium 9.5 mg/dL (8.4-10.2) 10/22/17 13:46 Troponin T < 0.010 ng/mL (0.00-0.029) 10/22/17 13:46 HCG, Qual Negative (Negative) 10/22/17 13:46 - Radiology Data Radiology results: report reviewed FINAL REPORT PROCEDURE: NM LUNG SCAN PERF/VENT TECHNIQUE: Five mCi Tc-99m MAA was injected IV for pulmonary perfusion imaging in multiple projections. Fifteen mCi xenon 133 was inhaled for pulmonary ventilation imaging in multiple projections. Injection site: RIGHT antecubital fossa. CPT 57407 HISTORY: Elevated D-Dimer COMPARISON: 02/23/2016 chest x-ray FINDINGS: Perfusion: No defects . Ventilation: No defects . IMPRESSION: Normal Examination Transcribed By: WEP Dictated By: YAMEL NAILS MD Electronically Authenticated By: YAMEL NAILS MD Signed Date/Time: 10/22/17 1640 - Medical Decision Making This is a 47-year-old female who presents for chest pain ED course: Cardiac workup was obtained, all cardiac workup negative. Patient has received 2 tablets of [place] 5/325 D-dimer mildly elevated at 238.58 Patient was signed off to and passed on to the care of attending Dr. Rg. Cxr Negative, VQ scan ordered to rule out pulmonary embolism. Negative Critical care attestation.: If time is entered above; I have spent that time in minutes in the direct care of this critically ill patient, excluding procedure time. ED Disposition Clinical Impression: Chest pain in adult Disposition: DC-01 TO HOME OR SELFCARE Is pt being admited?: No Does the pt Need Aspirin: No Condition: Stable Instructions: Chest Pain (ED) Referrals: SHANE JORGE MD [Staff Physician] - 3-5 Days
[2017-10-22 18:00] VITALS: BP 189/107
[2017-10-22] MEDS ORDERED: NORCO 5/325 ONE (18:37)
[2017-10-22] MEDS ORDERED: SUBLIMAZE IV ONE (19:27)
[2017-10-22] MEDS ORDERED: ZOFRAN IV ONE (19:27)
--- NOTE | 2017-10-22 20:43 | Nuclear Medicine Report ---
FINAL REPORT PROCEDURE: NM LUNG SCAN PERF/VENT TECHNIQUE: Five mCi Tc-99m MAA was injected IV for pulmonary perfusion imaging in multiple projections. Fifteen mCi xenon 133 was inhaled for pulmonary ventilation imaging in multiple projections. Injection site: RIGHT antecubital fossa. CPT 50165 HISTORY: Elevated D-Dimer COMPARISON: 02/23/2016 chest x-ray FINDINGS: Perfusion: No defects . Ventilation: No defects . IMPRESSION: Normal Examination
--- NOTE | 2017-10-22 21:13 | Event Note ---
Date: 10/22/17 Patient's VQ scan showed no clotting defects I will send patient home discuss discharge plan with patient she agrees with plan and states she will follow up with her industrial equipment wirer and additional verbal discharge instructions were given.
== END 2017-10-22 21:27 | disposition home or self-care (01) ==
LOC: ED 11:50
DX: R07.9 Chest pain, unspecified (principal); R05 Cough; I10 Essential (primary) hypertension; K21.9 Gastro-esophageal reflux disease without esophagitis
CPT/HCPCS: 36415; 71020; 78582; 80048; 84484; 84703; 85025; 85379; 85610; 85730; 93005; 93010; 96374; 96375; 99284; A9540; A9558; J2405; J3010; Q0162

== ENCOUNTER 2017-11-04 18:39 | Emergency (ER) | payer MEDICAID ==
[2017-11-04 20:15] VITALS: BP 176/82
== END 2017-11-04 20:23 | disposition left against medical advice (07) ==
LOC: ED 18:39
DX: R51 Headache (principal); Z53.21 Procedure and treatment not carried out due to patient leaving prior to being seen by health care provider

== ENCOUNTER 2017-11-21 10:43 | Emergency (ER) | payer MEDICAID ==
[2017-11-21 13:18] LABS: Bacteria,Urine 1+ /HPF (Negative); Bilirubin,Urine NEG (Negative); Blood,Urine SM (Negative); Mucus,Urine FEW /HPF; Nitrite,Urine POS (Negative)
[2017-11-21 13:21] LABS: WBC,Urine > 182.0 /HPF (0.0-6.0)
[2017-11-21 13:22] LABS: Color,Urine Orange (Yellow)
[2017-11-21] MEDS ORDERED: NACL 0.9% 1000 ML 1,000 ML IV ONE (14:28)
[2017-11-21] MEDS ORDERED: TORADOL IV ONE (14:28)
[2017-11-21] MEDS ORDERED: ZOFRAN IV ONE (14:28)
[2017-11-21] MEDS ORDERED: PERCOCET 5/325 PO ONE (15:19)
[2017-11-21 15:29] LABS: Basophils # (Auto) 0.1 K/mm3 (0.0-0.1); Basophils % (Auto) 0.8 % (0.0-1.8); Eosinophils # (Auto) 0.1 K/mm3 (0.0-0.4); Eosinophils % (Auto) 0.9 % (0.0-4.3); Hemoglobin 12.6 gm/dl (10.1-14.3); Lymphocytes # (Auto) 3.4 K/mm3 (1.2-5.4); Lymphocytes % (Auto) 22.9 % (13.4-35.0); Mean Corpuscular HGB Conc 34 % (30-34); Mean Corpuscular Hemoglobin 30 pg (28-32); Mean Corpuscular Volume 89 fl (79-97); Monocytes # (Auto) 1.2 K/mm3 (0.0-0.8); Monocytes % (Auto) 8.1 % (0.0-7.3); Platelet Count 259 K/mm3 (140-440); Red Blood Count 4.16 M/mm3 (3.65-5.03); Red Cell Distribution Width 14.1 % (13.2-15.2)
[2017-11-21 15:36] LABS: HCG Qualitative,Urine Negative (Negative)
[2017-11-21 15:45] LABS: BUN/Creatinine Ratio 22; Blood Urea Nitrogen 13 mg/dL (7-17); Calcium 9.5 mg/dL (8.4-10.2); Hemolysis Index 5
--- NOTE | 2017-11-21 15:56 | Ultrasound Report ---
ULTRASOUND RENAL INDICATION: Bilateral flank pain, pyelo, history of renal failure. COMPARISON: 06/26/2017 CT. FINDINGS: Renal sonography suggests normal renal cortical echogenicity. Grossly preserved renal contours. No hydronephrosis. Echogenic coarsening of imaged right hepatic lobe, not excluded enlarged/elongated craniocaudal. RIGHT KIDNEY measures 12.5 x 3.9 x 5.1 cm with cortical thickness of 1.1 cm. LEFT KIDNEY estimated at 12.7 x 5.1 x 4.8 cm with cortical thickness of 1.5 cm. URINARY BLADDER suboptimally distended and assessed. CONCLUSION: No acute renal sonographic abnormality with fatty liver not excluded, as described. Please correlate. Thank you for the opportunity to participate in this patient's care.
--- NOTE | 2017-11-21 16:21 | Emergency Department Report ---
ED Female HPI - General Chief complaint: Urogenital-Female Stated complaint: PAINFUL URINATION Time Seen by Provider: 11/21/17 14:58 Source: patient Mode of arrival: Ambulatory Limitations: No Limitations - History of Present Illness Initial comments: 47-year-old female past medical history hepatitis C anxiety cardiomyopathy arthritis history of AKA presents with complaint of about 5 days of left-sided flank pain with dysuria and increased urinary frequency. Patient is awake alert and oriented 3 not in acute distress accompanied by at bedside. Patient denies nausea or vomiting denies fever or chills. Patient states she has seen some blood in her urine. Last menstrual period over 5 years ago. MD Complaint: dysuria Onset/Timin -: week(s) Location: suprapubic Radiation: suprapubic Severity: moderate Severity scale (0 -10): 5 Quality: dull Consistency: constant Improves with: none Worsens with: none Are you Now?: No - Related Data Sexually active: No Home Medications Medication Instructions Recorded Confirmed Last Taken Nortriptyline [Pamelor] 75 mg PO QDAY 11/30/15 06/26/17 02/23/16 ALPRAZolam [Xanax TAB] 1 mg PO TID 03/23/16 06/26/17 07/23/16 Gabapentin [Neurontin] 900 mg PO TID 03/23/16 06/26/17 Unknown Previous Rx's Medication Instructions Recorded Last Taken Type Bisacodyl [Dulcolax suppos] 10 mg [place] QDAY PRN #20 supp.rect 06/28/17 Unknown Rx Docusate Sodium [Colace CAP] 100 mg PO BID #60 capsule 06/28/17 Unknown Rx Lisinopril/Hydrochlorothiazide 1 tab PO QDAY #30 tab 06/28/17 Unknown Rx [Zestoretic 20-12.5 mg] Magnesium Hydroxide [Milk of 30 ml PO Q4H PRN #20 oral.liqd 06/28/17 Unknown Rx Magnesia] Polyethylene Glycol 3350 [Miralax 17 gm PO QDAY #30 powd.pack 06/28/17 Unknown Rx 3350] Acyclovir 800 mg PO Q8H #21 tablet 08/11/17 Unknown Rx Sulfamethoxazole/Trimethoprim 1 each PO BID #14 tablet 08/11/17 Unknown Rx [Bactrim DS TAB] Acetaminophen/Codeine [Tylenol 1 tab PO Q6H PRN #10 tab 11/21/17 Unknown Rx /Codeine # 3 tab] Ondansetron [Zofran Odt] 4 mg PO Q8H PRN #20 tab.rapdis 11/21/17 Unknown Rx Phenazopyridine [Pyridium] 100 mg PO TID #6 tab 11/21/17 Unknown Rx Sulfamethoxazole/Trimethoprim 1 each PO BID #20 tablet 11/21/17 Unknown Rx [Bactrim DS TAB] Allergies Allergy/AdvReac Type Severity Reaction Status Date / Time cyclobenzaprine HCl Allergy Hives Verified 06/20/17 14:45 [From Flexeril] ED Review of Systems ROS: Stated complaint: PAINFUL URINATION Other details as noted in HPI Constitutional: denies: chills, fever Eyes: denies: eye pain, eye discharge, vision change ENT: denies: ear pain, throat pain Respiratory: denies: cough, shortness of breath, wheezing Cardiovascular: denies: chest pain, palpitations Endocrine: no symptoms reported Gastrointestinal: denies: abdominal pain, nausea, diarrhea Genitourinary: as per HPI (approximately 5 days of increased urinary frequency and dysuria), dysuria, frequency. denies: urgency, discharge Musculoskeletal: denies: back pain, joint swelling, arthralgia Skin: denies: rash, lesions Neurological: denies: headache, weakness, paresthesias Psychiatric: denies: anxiety, depression Hematological/Lymphatic: denies: easy bleeding, easy bruising ED Past Medical Hx - Past Medical History Hx Hypertension: Yes Hx Heart Attack/AMI: (Cardiomyopathy) Hx Congestive Heart Failure: No Hx Diabetes: No Hx GERD: Yes Hx Liver Disease: Yes (HEPATITIS C) Hx Arthritis: Yes Hx Seizures: Yes Hx Psychiatric Treatment: Yes (ANXIETY) Hx Asthma: No Hx COPD: No Additional medical history: foot spurs,. DDD. mass L breast. Chronic pain. Spinal cyst. Diverticulitis - Surgical History Past Surgical History?: Yes Additional Surgical History: , heart cath - Social History Smoking Status: Current Every Day Smoker Substance Use Type: None - Medications Home Medications: Home Medications Medication Instructions Recorded Confirmed Last Taken Type Nortriptyline [Pamelor] 75 mg PO QDAY 11/30/15 06/26/17 02/23/16 History ALPRAZolam [Xanax TAB] 1 mg PO TID 03/23/16 06/26/17 07/23/16 History Gabapentin [Neurontin] 900 mg PO TID 03/23/16 06/26/17 Unknown History Bisacodyl [Dulcolax suppos] 10 mg [place] QDAY PRN #20 supp.rect 06/28/17 Unknown Rx Docusate Sodium [Colace CAP] 100 mg PO BID #60 capsule 06/28/17 Unknown Rx Lisinopril/Hydrochlorothiazide 1 tab PO QDAY #30 tab 06/28/17 Unknown Rx [Zestoretic 20-12.5 mg] Magnesium Hydroxide [Milk of 30 ml PO Q4H PRN #20 oral.liqd 06/28/17 Unknown Rx Magnesia] Polyethylene Glycol 3350 [Miralax 17 gm PO QDAY #30 powd.pack 06/28/17 Unknown Rx 3350] Acyclovir 800 mg PO Q8H #21 tablet 08/11/17 Unknown Rx Sulfamethoxazole/Trimethoprim 1 each PO BID #14 tablet 08/11/17 Unknown Rx [Bactrim DS TAB] Acetaminophen/Codeine [Tylenol 1 tab PO Q6H PRN #10 tab 11/21/17 Unknown Rx /Codeine # 3 tab] Ondansetron [Zofran Odt] 4 mg PO Q8H PRN #20 tab.rapdis 11/21/17 Unknown Rx Phenazopyridine [Pyridium] 100 mg PO TID #6 tab 11/21/17 Unknown Rx Sulfamethoxazole/Trimethoprim 1 each PO BID #20 tablet 11/21/17 Unknown Rx [Bactrim DS TAB] ED Physical Exam - General Limitations: No Limitations General appearance: alert, in no apparent distress - Head Head exam: Present: atraumatic, normocephalic - Eye Eye exam: Present: normal appearance, PERRL, EOMI - ENT ENT exam: Present: mucous membranes moist - Neck Neck exam: Present: normal inspection - Respiratory Respiratory exam: Present: normal lung sounds bilaterally. Absent: respiratory distress - Cardiovascular Cardiovascular Exam: Present: regular rate, normal rhythm. Absent: systolic murmur, diastolic murmur, rubs, gallop - GI/Abdominal GI/Abdominal exam: Present: soft (abdomen soft nontender nondistended questionable suprapubic tenderness. There is some flank pain left flank on hard percussion), normal bowel sounds - Extremities Exam Extremities exam: Present: normal inspection - Back Exam Back exam: Present: normal inspection, CVA tenderness (L) - Neurological Exam Neurological exam: Present: alert, oriented X3, CN II-XII intact, normal gait - Psychiatric Psychiatric exam: Present: normal affect, normal mood - Skin Skin exam: Present: warm, dry, intact, normal color. Absent: rash ED Course Vital Signs 11/21/17 11/21/17 11:54 17:24 Temperature 98.3 F 98.2 F Pulse Rate 122 H 102 H Respiratory 16 18 Rate Blood Pressure 140/89 148/89 O2 Sat by Pulse 96 99 Oximetry ED Medical Decision Making - Lab Data Result diagrams: 11/21/17 15:14 11/21/17 15:14 - Medical Decision Making A/P: Acute pyelonephritis, UTI 1-I discussed case with who reviewed imaging and lab work with me. Urine culture sent 2- As patient's vital signs normalized and she is tolerating by mouth and is afebrile I will discharge patient with antibiotic regimen as recommended by [email or web address] for treatment of pyelonephritis in outpatient setting. Patient received 1 dose of IV Rocephin while in the ED. [email or web address]&source=search_result&selectedTitle=1~ 150&usage_type=default&display_rank=1#[id number] 3-I gave patient strict precautions to return to the ED for worsening flank pain worsen dysuria fevers chills or inability to tolerate by mouth. I also advised patient if she cannot void urine normally to return to the ED. Patient stated she understood my instructions and will follow-up with her primary care provider. 4- Pyridium course, short course Zofran, patient states she has Lortab at home Critical care attestation.: If time is entered above; I have spent that time in minutes in the direct care of this critically ill patient, excluding procedure time. ED Disposition Clinical Impression: Dysuria Urinary tract infection Qualifiers: Urinary tract infection type: acute pyelonephritis Qualified Code(s): N10 - Acute pyelonephritis Disposition: DC-01 TO HOME OR SELFCARE Is pt being admited?: No Does the pt Need Aspirin: No Condition: Stable Instructions: Urinary Tract Infection in Women (ED), Acute Pyelonephritis (ED) , Flank Pain (ED) Prescriptions: Acetaminophen/Codeine [Tylenol /Codeine # 3 tab] 1 tab PO Q6H PRN #10 tab PRN Reason: Pain Ondansetron [Zofran Odt] 4 mg PO Q8H PRN #20 tab.rapdis PRN Reason: Nausea Phenazopyridine [Pyridium] 100 mg PO TID #6 tab Sulfamethoxazole/Trimethoprim [Bactrim DS TAB] 1 each PO BID #20 tablet Referrals: [facility] [Provider Group] - 3-5 Days [facility] [Outside] - 3-5 Days [facility] [Outside] - 3-5 Days Forms: Accompanied Note, Work/School Release Form(ED) Time of Disposition: 18:28
[2017-11-21] MEDS ORDERED: ROCEPHIN/NS 1 GM/50 ML 1 GM/50 ML BAG IV ONE (17:22)
[2017-11-21] MEDS ORDERED: cefTRIAXone 1 GM in NACL 0.9% 20 ML IV ONE (17:30)
[2017-11-21 18:48] VITALS: BP 151/92
== END 2017-11-21 18:48 | disposition home or self-care (01) ==
LOC: ED 10:43
DX: N39.0 Urinary tract infection, site not specified (principal); I10 Essential (primary) hypertension; I42.8 Other cardiomyopathies; K21.9 Gastro-esophageal reflux disease without esophagitis; M19.90 Unspecified osteoarthritis, unspecified site; F41.9 Anxiety disorder, unspecified; G89.29 Other chronic pain; F17.200 Nicotine dependence, unspecified, uncomplicated; Z86.19 Personal history of other infectious and parasitic diseases
CPT/HCPCS: 36415; 76770; 80048; 81001; 81025; 82140; 85025; 87086; 96361; 96374; 96375; 99284; J0696; J1885; J2405; J7030

== ENCOUNTER 2018-02-28 02:36 | Emergency (ER) | payer MEDICAID ==
[2018-02-28] MEDS ORDERED: ASPIRIN PO ONE (03:21)
[2018-02-28 03:47] LABS: Basophils # (Auto) 0.1 K/mm3 (0.0-0.1); Basophils % (Auto) 0.6 % (0.0-1.8); Eosinophils # (Auto) 0.1 K/mm3 (0.0-0.4); Eosinophils % (Auto) 1.4 % (0.0-4.3); Hematocrit 39.7 % (30.3-42.9); Hemoglobin 13.9 gm/dl (10.1-14.3); Lymphocytes # (Auto) 3.5 K/mm3 (1.2-5.4); Lymphocytes % (Auto) 41.6 % (13.4-35.0); Mean Corpuscular HGB Conc 35 % (30-34); Mean Corpuscular Hemoglobin 31 pg (28-32); Mean Corpuscular Volume 89 fl (79-97); Monocytes # (Auto) 0.6 K/mm3 (0.0-0.8); Platelet Count 201 K/mm3 (140-440); Red Blood Count 4.48 M/mm3 (3.65-5.03); Red Cell Distribution Width 13.8 % (13.2-15.2)
[2018-02-28 04:01] LABS: BUN/Creatinine Ratio 17; Blood Urea Nitrogen 12 mg/dL (7-17); Hemolysis Index 14
[2018-02-28] MEDS ORDERED: MORPHINE IV ONE (07:24)
[2018-02-28] MEDS ORDERED: ZOFRAN IV ONE (07:24)
[2018-02-28] MEDS ORDERED: NACL 0.9% 1000 ML 1,000 ML IV ONE (07:24)
--- NOTE | 2018-02-28 07:29 | Emergency Department Report ---
ED General Adult HPI - General Chief complaint: Hyperglycemia Stated complaint: HIGH GLUCOSE, CHEST PAIN Time Seen by Provider: 02/28/18 07:17 Source: patient Mode of arrival: Ambulatory Limitations: No Limitations - History of Present Illness Initial comments: Ms. Faria is 48 years old female, presented to the ER complaining off hyperglycemia and chest pain on and off for the last week. Patient is describing her chest pain as sharp, does not radiate. Patient stated that since been having nausea and vomiting. Patient recently diagnosed with diabetes and started on glyburide and metformin but is stating that her medication is not controlling her blood sugar. She stated that her blood sugar this morning was more than 400. Patient denied any abdominal pain or fever. - Related Data Home Medications Medication Instructions Recorded Confirmed Last Taken Nortriptyline(Nf) [Pamelor(Nf)] 75 mg PO QDAY 11/30/15 06/26/17 02/23/16 ALPRAZolam [Xanax TAB] 1 mg PO TID 03/23/16 06/26/17 07/23/16 Gabapentin [Neurontin] 900 mg PO TID 03/23/16 06/26/17 Unknown Previous Rx's Medication Instructions Recorded Last Taken Type Bisacodyl [Dulcolax suppos] 10 mg [place] QDAY PRN #20 supp.rect 06/28/17 Unknown Rx Docusate Sodium [Colace CAP] 100 mg PO BID #60 capsule 06/28/17 Unknown Rx Lisinopril/Hydrochlorothiazide 1 tab PO QDAY #30 tab 06/28/17 Unknown Rx [Zestoretic 20-12.5 mg] Magnesium Hydroxide [Milk of 30 ml PO Q4H PRN #20 oral.liqd 06/28/17 Unknown Rx Magnesia] Polyethylene Glycol 3350 [Miralax 17 gm PO QDAY #30 powd.pack 06/28/17 Unknown Rx 3350] Acyclovir 800 mg PO Q8H #21 tablet 08/11/17 Unknown Rx Sulfamethoxazole/Trimethoprim 1 each PO BID #14 tablet 08/11/17 Unknown Rx [Bactrim DS TAB] Acetaminophen/Codeine [Tylenol 1 tab PO Q6H PRN #10 tab 11/21/17 Unknown Rx /Codeine # 3 tab] Ondansetron [Zofran Odt] 4 mg PO Q8H PRN #20 tab.rapdis 11/21/17 Unknown Rx Phenazopyridine [Pyridium] 100 mg PO TID #6 tab 11/21/17 Unknown Rx Sulfamethoxazole/Trimethoprim 1 each PO BID #20 tablet 11/21/17 Unknown Rx [Bactrim DS TAB] Insulin Aspart [Novolog] 5 unit SQ AC #5 vial 02/28/18 Unknown Rx Insulin Glargine [Lantus] 30 unit SUB-Q QHS #3 vial 02/28/18 Unknown Rx metFORMIN [Glucophage] 500 mg PO BID #60 tablet 02/28/18 Unknown Rx Allergies Allergy/AdvReac Type Severity Reaction Status Date / Time cyclobenzaprine HCl Allergy Hives Verified 06/20/17 14:45 [From Flexeril] ED Review of Systems ROS: Stated complaint: HIGH GLUCOSE, CHEST PAIN Other details as noted in HPI Comment: All other systems reviewed and negative Constitutional: denies: chills, diaphoresis, fever, weakness Respiratory: denies: cough, orthopnea, shortness of breath, SOB with exertion, SOB at rest, wheezing Cardiovascular: chest pain. denies: palpitations, dyspnea on exertion, orthopnea Gastrointestinal: nausea, vomiting. denies: abdominal pain, diarrhea, constipation, hematemesis, melena, hematochezia Genitourinary: denies: urgency, dysuria, frequency, hematuria, discharge, abnormal menses, dyspareunia Musculoskeletal: denies: back pain Neurological: denies: headache, weakness, numbness, paresthesias, confusion, abnormal gait ED Past Medical Hx - Past Medical History Previous Medical History?: Yes Hx Hypertension: Yes Hx Heart Attack/AMI: (Cardiomyopathy) Hx Congestive Heart Failure: No Hx Diabetes: No Hx GERD: Yes Hx Liver Disease: Yes (HEPATITIS C) Hx Arthritis: Yes Hx Seizures: Yes Hx Psychiatric Treatment: Yes (ANXIETY) Hx Asthma: No Hx COPD: No Additional medical history: foot spurs,. DDD. mass L breast. Chronic pain. Spinal cyst. Diverticulitis - Surgical History Past Surgical History?: Yes Additional Surgical History: , heart cath - Social History Smoking Status: Never Smoker Substance Use Type: None - Medications Home Medications: Home Medications Medication Instructions Recorded Confirmed Last Taken Type Nortriptyline(Nf) [Pamelor(Nf)] 75 mg PO QDAY 11/30/15 06/26/1702/22/16 History ALPRAZolam [Xanax TAB] 1 mg PO TID 03/23/16 06/26/17 07/23/16 History Gabapentin [Neurontin] 900 mg PO TID 03/23/16 06/26/17 Unknown History Bisacodyl [Dulcolax suppos] 10 mg [place] QDAY PRN #20 supp.rect 06/28/17 Unknown Rx Docusate Sodium [Colace CAP] 100 mg PO BID #60 capsule 06/28/17 Unknown Rx Lisinopril/Hydrochlorothiazide 1 tab PO QDAY #30 tab 06/28/17 Unknown Rx [Zestoretic 20-12.5 mg] Magnesium Hydroxide [Milk of 30 ml PO Q4H PRN #20 oral.liqd 06/28/17 Unknown Rx Magnesia] Polyethylene Glycol 3350 [Miralax 17 gm PO QDAY #30 powd.pack 06/28/17 Unknown Rx 3350] Acyclovir 800 mg PO Q8H #21 tablet 08/11/17 Unknown Rx Sulfamethoxazole/Trimethoprim 1 each PO BID #14 tablet 08/11/17 Unknown Rx [Bactrim DS TAB] Acetaminophen/Codeine [Tylenol 1 tab PO Q6H PRN #10 tab 11/21/17 Unknown Rx /Codeine # 3 tab] Ondansetron [Zofran Odt] 4 mg PO Q8H PRN #20 tab.rapdis 11/21/17 Unknown Rx Phenazopyridine [Pyridium] 100 mg PO TID #6 tab 11/21/17 Unknown Rx Sulfamethoxazole/Trimethoprim 1 each PO BID #20 tablet 11/21/17 Unknown Rx [Bactrim DS TAB] Insulin Aspart [Novolog] 5 unit SQ AC #5 vial 02/28/18 Unknown Rx Insulin Glargine [Lantus] 30 unit SUB-Q QHS #3 vial 02/28/18 Unknown Rx metFORMIN [Glucophage] 500 mg PO BID #60 tablet 02/28/18 Unknown Rx ED Physical Exam - General Limitations: No Limitations General appearance: alert, in no apparent distress - Head Head exam: Present: atraumatic, normocephalic, normal inspection - Eye Eye exam: Present: normal appearance, PERRL - ENT ENT exam: Present: normal exam, normal orophraynx, mucous membranes moist - Neck Neck exam: Present: normal inspection, full ROM. Absent: tenderness, meningismus, lymphadenopathy, thyromegaly - Respiratory Respiratory exam: Present: normal lung sounds bilaterally. Absent: respiratory distress, wheezes, rales, rhonchi, stridor, chest wall tenderness, accessory muscle use, decreased breath sounds, prolonged expiratory - Cardiovascular Cardiovascular Exam: Present: regular rate, normal rhythm, normal heart sounds - GI/Abdominal GI/Abdominal exam: Present: soft, normal bowel sounds. Absent: distended, tenderness, guarding, rebound, rigid, organomegaly, mass, bruit, pulsatile mass , hernia - Extremities Exam Extremities exam: Present: normal inspection, full ROM, normal capillary refill. Absent: tenderness, pedal edema, joint swelling, calf tenderness - Back Exam Back exam: Present: normal inspection, full ROM. Absent: tenderness, CVA tenderness (R), CVA tenderness (L), muscle spasm, paraspinal tenderness, vertebral tenderness - Neurological Exam Neurological exam: Present: alert, oriented X3, CN II-XII intact, normal gait - Skin Skin exam: Present: warm, dry, intact ED Course Vital Signs 02/28/18 03:09 Temperature 98.3 F Pulse Rate 93 H Respiratory 18 Rate Blood Pressure 115/79 O2 Sat by Pulse 98 Oximetry ED Medical Decision Making - Lab Data Result diagrams: 02/28/18 03:25 02/28/18 03:25 - Medical Decision Making I discussed with the patient however, and hemoglobin A1c which is 11.2. I believe the patient needed to be on insulin at this moment she agreed to that. I advised her to stop her glyburide and discontinue her metformin I will give her a prescription for that. I will start Haldol and Lantus at night and NovoLog before meal. I will give Dr. Rodriguez to follow-up with. I advised her to return to the ER if her symptoms are not improving. Critical care attestation.: If time is entered above; I have spent that time in minutes in the direct care of this critically ill patient, excluding procedure time. ED Disposition Clinical Impression: Hyperglycemia due to type 2 diabetes mellitus Disposition: DC-01 TO HOME OR SELFCARE Is pt being admited?: No Condition: Stable Instructions: Diabetes Mellitus Type 2 in Adults (ED) Additional Instructions: Please stop. Glyburide/metformin tablets and continue with the new regimen that prescribed to you Prescriptions: Insulin Glargine [Lantus] 30 unit SUB-Q QHS #3 vial Insulin Aspart [Novolog] 5 unit SQ AC #5 vial metFORMIN [Glucophage] 500 mg PO BID #60 tablet Referrals: [place] RODRIGUEZ MD [Staff Physician] - 3-5 Days
[2018-02-28 07:58] LABS: Bilirubin,Urine NEG (Negative); Blood,Urine NEG (Negative); Color,Urine Yellow (Yellow); Mucus,Urine FEW /HPF; Protein,Urine <15 mg/dL mg/dL (Negative); Urobilinogen,Urine < 2.0 mg/dL (<2.0)
[2018-02-28] MEDS ORDERED: ASPIRIN ONE (08:55)
[2018-02-28] MEDS ORDERED: HumuLIN R SUB-Q ONE ×2 (08:59→10:32)
--- NOTE | 2018-02-28 09:13 | XRay Report ---
FINAL REPORT EXAM: XR CHEST 1V AP HISTORY: chest pain COMPARISON: Chest radiograph performed on 02/23/2016 TECHNIQUE: Frontal and lateral views of the chest. FINDINGS: The cardiomediastinal silhouette is normal in appearance. The lungs are clear without focal consolidation. There is no pleural effusion or pneumothorax. There is no acute soft tissue or osseous abnormality. IMPRESSION: No acute cardiopulmonary disease.
[2018-02-28 12:29] VITALS: BP 141/80
== END 2018-02-28 12:00 | disposition home or self-care (01) ==
LOC: ED 02:36
DX: E11.65 Type 2 diabetes mellitus with hyperglycemia (principal); I10 Essential (primary) hypertension; I42.9 Cardiomyopathy, unspecified; K21.9 Gastro-esophageal reflux disease without esophagitis; Z86.19 Personal history of other infectious and parasitic diseases; Z79.4 Long term (current) use of insulin; Z88.8 Allergy status to other drugs, medicaments and biological substances; F41.9 Anxiety disorder, unspecified
CPT/HCPCS: 36415; 71045; 80048; 81001; 82805; 82962; 83036; 83690; 84484; 85025; 93005; 93010; 96361; 96372; 96374; 96375; 99284; J2270; J2405; J7030; J1815

== ENCOUNTER 2018-04-03 23:58 | Emergency (ER) | payer MEDICAID ==
[2018-04-04 03:48] LABS: Bacteria,Urine 1+ /HPF (Negative); Bilirubin,Urine NEG (Negative); Blood,Urine MOD (Negative); Color,Urine Amber (Yellow); Hyaline Casts,Urine 4 /LPF; Mucus,Urine FEW /HPF
[2018-04-04 03:49] LABS: RBC,Urine > 182.0 /HPF (0.0-6.0); WBC,Urine > 182.0 /HPF (0.0-6.0)
[2018-04-04 04:02] LABS: HCG Qualitative,Urine Negative (Negative)
[2018-04-04] MEDS ORDERED: ROCEPHIN IM ONE (07:13)
[2018-04-04] MEDS ORDERED: XYLOCAINE 1% MPF 5 mL INFILTRATI ONE (07:13)
--- NOTE | 2018-04-04 07:18 | Emergency Department Report ---
ED Female HPI - General Chief complaint: Urogenital-Female Stated complaint: CAN'T USE BATHROOM BURNING BACK PAIN Time Seen by Provider: 04/04/18 07:06 Source: patient Mode of arrival: Ambulatory Limitations: No Limitations - History of Present Illness Initial comments: Patient is 48 years old female history of diabetes. Patient presented to the ER complaining off increased urinary frequency, painful urination and urgency for the last 3 days. Patient denied any fever, nausea or vomiting or abdominal pain. MD Complaint: dysuria - Related Data Home Medications Medication Instructions Recorded Confirmed Last Taken Nortriptyline(Nf) [Pamelor(Nf)] 75 mg PO QDAY 11/30/15 06/26/17 02/23/16 ALPRAZolam [Xanax TAB] 1 mg PO TID 03/23/16 06/26/17 07/23/16 Gabapentin [Neurontin] 900 mg PO TID 03/23/16 06/26/17 Unknown Previous Rx's Medication Instructions Recorded Last Taken Type Bisacodyl [Dulcolax suppos] [address] QDAY PRN #20 supp.rect 06/28/17 Unknown Rx Docusate Sodium [Colace CAP] 100 mg PO BID #60 capsule 06/28/17 Unknown Rx Lisinopril/Hydrochlorothiazide 1 tab PO QDAY #30 tab 06/28/17 Unknown Rx [Zestoretic 20-12.5 mg] Magnesium Hydroxide [Milk of 30 ml PO Q4H PRN #20 oral.liqd 06/28/17 Unknown Rx Magnesia] Polyethylene Glycol 3350 [Miralax 17 gm PO QDAY #30 powd.pack 06/28/17 Unknown Rx 3350] Acyclovir 800 mg PO Q8H #21 tablet 08/11/17 Unknown Rx Sulfamethoxazole/Trimethoprim 1 each PO BID #14 tablet 08/11/17 Unknown Rx [Bactrim DS TAB] Acetaminophen/Codeine [Tylenol 1 tab PO Q6H PRN #10 tab 11/21/17 Unknown Rx /Codeine # 3 tab] Ondansetron [Zofran Odt] 4 mg PO Q8H PRN #20 tab.rapdis 11/21/17 Unknown Rx Phenazopyridine [Pyridium] 100 mg PO TID #6 tab 11/21/17 Unknown Rx Sulfamethoxazole/Trimethoprim 1 each PO BID #20 tablet 11/21/17 Unknown Rx [Bactrim DS TAB] Insulin Aspart [Novolog] 5 unit SQ AC #5 vial 02/28/18 Unknown Rx Insulin Glargine [Lantus] 30 unit SUB-Q QHS #3 vial 02/28/18 Unknown Rx Syringe,Insul U-500,Ndl,0.5ML 1 each MC TID #100 disp.syrin 02/28/18 Unknown Rx [Insulin Syringe U-500] metFORMIN [Glucophage] 500 mg PO BID #60 tablet 02/28/18 Unknown Rx Allergies Allergy/AdvReac Type Severity Reaction Status Date / Time cyclobenzaprine HCl Allergy Hives Verified 06/20/17 14:45 [From Flexeril] ED Review of Systems ROS: Stated complaint: CAN'T USE BATHROOM BURNING BACK PAIN Other details as noted in HPI Comment: All other systems reviewed and negative Constitutional: denies: chills, fever Respiratory: denies: cough, orthopnea Cardiovascular: denies: chest pain, palpitations Gastrointestinal: denies: abdominal pain, nausea, vomiting, diarrhea, constipation, hematemesis Genitourinary: urgency, dysuria, frequency Musculoskeletal: denies: back pain, joint swelling Neurological: denies: headache, weakness, numbness, paresthesias ED Past Medical Hx - Past Medical History Previous Medical History?: Yes Hx Hypertension: Yes Hx Heart Attack/AMI: (Cardiomyopathy) Hx Congestive Heart Failure: No Hx Diabetes: No Hx GERD: Yes Hx Liver Disease: Yes (HEPATITIS C) Hx Arthritis: Yes Hx Seizures: Yes Hx Psychiatric Treatment: Yes (ANXIETY) Hx Asthma: No Hx COPD: No Additional medical history: foot spurs,. DDD. mass L breast. Chronic pain. Spinal cyst. Diverticulitis - Surgical History Past Surgical History?: Yes Additional Surgical History: , heart cath - Social History Smoking Status: Never Smoker Substance Use Type: None - Medications Home Medications: Home Medications Medication Instructions Recorded Confirmed Last Taken Type Nortriptyline(Nf) [Pamelor(Nf)] 75 mg PO QDAY 11/30/15 06/26/17 02/23/16 History ALPRAZolam [Xanax TAB] 1 mg PO TID 03/23/16 06/26/17 07/23/16 History Gabapentin [Neurontin] 900 mg PO TID 03/23/16 06/26/17 Unknown History Bisacodyl [Dulcolax suppos] [address] QDAY PRN #20 supp.rect 06/28/17 Unknown Rx Docusate Sodium [Colace CAP] 100 mg PO BID #60 capsule 06/28/17 Unknown Rx Lisinopril/Hydrochlorothiazide 1 tab PO QDAY #30 tab 06/28/17 Unknown Rx [Zestoretic 20-12.5 mg] Magnesium Hydroxide [Milk of 30 ml PO Q4H PRN #20 oral.liqd 06/28/17 Unknown Rx Magnesia] Polyethylene Glycol 3350 [Miralax 17 gm PO QDAY #30 powd.pack 06/28/17 Unknown Rx 3350] Acyclovir 800 mg PO Q8H #21 tablet 08/11/17 Unknown Rx Sulfamethoxazole/Trimethoprim 1 each PO BID #14 tablet 08/11/17 Unknown Rx [Bactrim DS TAB] Acetaminophen/Codeine [Tylenol 1 tab PO Q6H PRN #10 tab 11/21/17 Unknown Rx /Codeine # 3 tab] Ondansetron [Zofran Odt] 4 mg PO Q8H PRN #20 tab.rapdis 11/21/17 Unknown Rx Phenazopyridine [Pyridium] 100 mg PO TID #6 tab 11/21/17 Unknown Rx Sulfamethoxazole/Trimethoprim 1 each PO BID #20 tablet 11/21/17 Unknown Rx [Bactrim DS TAB] Insulin Aspart [Novolog] 5 unit SQ AC #5 vial 02/28/18 Unknown Rx Insulin Glargine [Lantus] 30 unit SUB-Q QHS #3 vial 02/28/18 Unknown Rx Syringe,Insul U-500,Ndl,0.5ML 1 each MC TID #100 disp.syrin 02/28/18 Unknown Rx [Insulin Syringe U-500] metFORMIN [Glucophage] 500 mg PO BID #60 tablet 02/28/18 Unknown Rx ED Physical Exam - General Limitations: No Limitations General appearance: alert, in no apparent distress - Head Head exam: Present: atraumatic, normocephalic, normal inspection - Eye Eye exam: Present: normal appearance - ENT ENT exam: Present: normal exam, normal orophraynx, mucous membranes moist, normal external ear exam - Neck Neck exam: Present: normal inspection, full ROM. Absent: tenderness, meningismus, lymphadenopathy, thyromegaly - Respiratory Respiratory exam: Present: normal lung sounds bilaterally, prolonged expiratory. Absent: respiratory distress, wheezes, rales, rhonchi, stridor, accessory muscle use, decreased breath sounds - Cardiovascular Cardiovascular Exam: Present: regular rate, normal rhythm, normal heart sounds - GI/Abdominal GI/Abdominal exam: Present: soft, normal bowel sounds. Absent: distended, tenderness, guarding, rebound, rigid, mass, bruit, pulsatile mass, hernia - Extremities Exam Extremities exam: Present: normal inspection, full ROM, normal capillary refill. Absent: tenderness, pedal edema - Back Exam Back exam: Present: normal inspection, full ROM. Absent: tenderness, CVA tenderness (R), CVA tenderness (L), muscle spasm - Neurological Exam Neurological exam: Present: alert, oriented X3, CN II-XII intact - Skin Skin exam: Present: warm, intact, normal color ED Course Vital Signs 04/04/18 04/04/18 00:23 06:39 Temperature 98 F 97.8 F Pulse Rate 89 94 H Respiratory 18 19 Rate Blood Pressure 103/67 Blood Pressure 148/88 [Left] O2 Sat by Pulse 100 Oximetry Critical care attestation.: If time is entered above; I have spent that time in minutes in the direct care of this critically ill patient, excluding procedure time. ED Disposition Clinical Impression: UTI (urinary tract infection) Disposition: -01 TO HOME OR SELFCARE Is pt being admited?: No Condition: Stable Instructions: Urinary Tract Infection in Women (ED) Referrals: PRIMARY CARE, [Primary Care Provider] - 3-5 Days
[2018-04-04 07:54] VITALS: BP 135/80
== END 2018-04-04 07:58 | disposition home or self-care (01) ==
LOC: ED 23:58
DX: N39.0 Urinary tract infection, site not specified (principal); I10 Essential (primary) hypertension; K21.9 Gastro-esophageal reflux disease without esophagitis
CPT/HCPCS: 81001; 81025; 82962; 87086; 96372; 99283; J0696

== ENCOUNTER 2018-05-22 09:06 | Emergency (ER) | payer MEDICAID ==
[2018-05-22] MEDS ORDERED: NACL 0.9% 1000 ML 1,000 ML IV ONE (09:42)
[2018-05-22] MEDS ORDERED: ZOFRAN IV ONE (09:42)
--- NOTE | 2018-05-22 09:45 | Emergency Department Report ---
Blank Doc - Documentation Documentation: Patient is 48 years old female history of hypertension and diabetes and history of GI bleed before. Patient presented to the ER complaining of abdominal pain for a week, crampy in nature. Patient stated that she positive bright red blood this morning patient stated that she is not dizzy but she is lightheaded. Patient denied any hematemesis or hematuria. Given this clinical presentation and previous history of GI bleed patient will need to be evaluated in our main ED.
[2018-05-22] MEDS ORDERED: PROTONIX PO ONE (10:24)
[2018-05-22 10:40] LABS: Basophils # (Auto) 0.1 K/mm3 (0.0-0.1); Basophils % (Auto) 1.2 % (0.0-1.8); Eosinophils # (Auto) 0.2 K/mm3 (0.0-0.4); Hematocrit 35.2 % (30.3-42.9); Lymphocytes # (Auto) 1.8 K/mm3 (1.2-5.4); Lymphocytes % (Auto) 34.3 % (13.4-35.0); Mean Corpuscular HGB Conc 34 % (30-34); Mean Corpuscular Hemoglobin 32 pg (28-32); Mean Corpuscular Volume 92 fl (79-97); Monocytes # (Auto) 0.6 K/mm3 (0.0-0.8); Monocytes % (Auto) 11.7 % (0.0-7.3); Platelet Count 198 K/mm3 (140-440); Red Blood Count 3.81 M/mm3 (3.65-5.03); Red Cell Distribution Width 13.1 % (13.2-15.2)
[2018-05-22] MEDS ORDERED: SUBLIMAZE IV ONE ×2 (10:49→12:23)
[2018-05-22 10:50] LABS: INR 0.87 (0.87-1.13)
[2018-05-22 10:51] LABS: Partial Thromboplastin Time 31.5 Sec. (24.2-36.6)
[2018-05-22 10:58] LABS: Alanine Aminotransferase 13 units/L (7-56); Albumin 4.3 g/dL (3.9-5); BUN/Creatinine Ratio 23; Blood Urea Nitrogen 14 mg/dL (7-17); Calcium 9.4 mg/dL (8.4-10.2); Hemolysis Index 10
--- NOTE | 2018-05-22 12:07 | Emergency Department Report ---
HPI - General Chief Complaint: Abdominal Pain Time Seen by Provider: 05/22/18 09:37 - HPI HPI: The patient is a 48-year-old female presents for evaluation of abdominal pain. The patient has a history of diverticulitis and chronic low back pain. She reports recurrence of lower left quadrant abdominal pain for the past couple of days, crampy in quality, 9/10 in severity, worse with bowel movements. She also reports associated nausea without emesis and bright blood in the stool this morning, which she has a recurrent past medical history of. The patient denies fever, trauma to the abdomen pelvis, chills, night sweats, diarrhea, dark tarry stool, dysuria, hematuria, flank pain, genital discharge, inability to pass flatus, hematemesis, hemoptysis, easy bruising or bleeding, or blood thinner use. ED Past Medical Hx - Past Medical History Hx Hypertension: Yes Hx Heart Attack/AMI: (Cardiomyopathy) Hx Congestive Heart Failure: No Hx Diabetes: No Hx GERD: Yes Hx Liver Disease: Yes (HEPATITIS C) Hx Arthritis: Yes Hx Seizures: Yes Hx Psychiatric Treatment: Yes (ANXIETY) Hx Asthma: No Hx COPD: No Additional medical history: foot spurs,. DDD. mass L breast. Chronic pain. Spinal cyst. Diverticulitis - Surgical History Additional Surgical History: , heart cath - Social History Smoking Status: Former Smoker - Medications Home Medications: Home Medications Medication Instructions Recorded Confirmed Last Taken Type Nortriptyline(Nf) [Pamelor(Nf)] 75 mg PO QDAY 11/30/15 06/26/17 02/23/16 History ALPRAZolam [Xanax TAB] 1 mg PO TID 03/23/16 06/26/17 07/23/16 History Lisinopril/Hydrochlorothiazide 1 tab PO QDAY #30 tab 06/28/17 Unknown Rx [Zestoretic 20-12.5 mg] Insulin Glargine [Lantus] 30 unit SUB-Q QHS #3 vial 02/28/18 Unknown Rx metFORMIN [Glucophage] 500 mg PO BID #60 tablet 02/28/18 Unknown Rx Carvedilol [Coreg] 3.125 mg PO BID 05/22/18 05/22/18 05/21/18 History Ciprofloxacin HCl [Ciprofloxacin 500 mg PO Q12H #14 tab 05/22/18 Unknown Rx TAB] Dicyclomine [Bentyl] 10 mg PO QID #20 capsule 05/22/18 Unknown Rx HYDROcodone/APAP 10-325 [[place] 1 each PO Q8HR PRN 05/22/18 05/22/18 05/21/18 History 10/325] Pantoprazole [Protonix] 40 mg PO QDAY 05/22/18 05/22/18 05/21/18 History Promethazine [Phenergan TAB] 25 mg PO Q6HR PRN 05/22/18 05/22/18 05/21/18 History metroNIDAZOLE [Flagyl] 500 mg PO Q12HR #14 tab 05/22/18 Unknown Rx ED Review of Systems ROS: Stated complaint: BLOODY STOOL/ABD PAIN Other details as noted in HPI Constitutional: denies: fever ENT: denies: throat or neck pain Respiratory: denies: cough, shortness of breath Cardiovascular: denies: chest pain Endocrine: denies unexplained weight loss or gain Gastrointestinal: reports abdominal pain, nausea Genitourinary: denies: dysuria Musculoskeletal: denies: leg swelling Skin: denies: rash Neurological: denies: headache Hematological/Lymphatic: denies: easy bleeding or easy bruising Psych: denies sadness or hopelessness Physical Exam - Physical Exam Vital Signs: Vital Signs 05/22/18 05/22/18 09:16 10:32 Temperature 98.5 F Pulse Rate 86 Respiratory 18 16 Rate Blood Pressure 177/101 O2 Sat by Pulse 100 99 Oximetry Physical Exam: General: well-nourished, well-developed, no acute distress Head: Normocephalic, atraumatic Eyes: normal sclera ENT: Mucous membranes are pale and dry Neck: No neck stiffness, no cervical adenopathy Respiratory: Breath sounds equal bilaterally, no wheezing, rales, or rhonchi Cardio: S1 and S2 present, no murmurs, rubs, gallops, capillary refill is delayed Abdomen: Normoactive bowel sounds, soft abdomen, left lower quadrant T2 P, no rigidity, no guarding or rebound tenderness Chest WALL/Back: No tenderness to palpation of the chest wall, no CVA tenderness with percussion Musc: No pitting edema Skin: No rash Neuro: no facial drooping, normal speech Psych: Normal affect ED Course Vital Signs 07/20/18 07/20/18 09:16 10:32 Temperature 98.5 F Pulse Rate 86 Respiratory 18 16 Rate Blood Pressure 177/101 O2 Sat by Pulse 100 99 Oximetry ED Medical Decision Making - Lab Data Result diagrams: 05/22/18 10:16 05/22/18 10:16 - Medical Decision Making The patient was seen and examined by myself. The patient is placed on a cardiac specialist and continuous pulse ox. On initial evaluation, the patient was found to be in no distress. Evaluation orders are placed. IV access is established and the patient is given Zofran for nausea and IV analgesic for pain. Lab results were non-concerning including WBC, hemoglobin, hematocrit, electrolytes, renal function, LFTs, lipase, and urinalysis. The patient was reevaluated and reported that their symptoms were markedly improved. The patient is stable for discharge with outpatient follow-up. The patient is given follow-up and return instructions. The patient expressed understanding and agreed with the plan. The patient is discharged in stable condition. Critical care attestation.: If time is entered above; I have spent that time in minutes in the direct care of this critically ill patient, excluding procedure time. ED Disposition Clinical Impression: Abdominal pain, acute, left lower quadrant, Acute lower GI bleeding Disposition: DC-01 TO HOME OR SELFCARE Is pt being admited?: No Does the pt Need Aspirin: No Condition: Stable Instructions: Abdominal Pain (ED), Diverticulitis Diet (ED), Diverticulitis (ED ) Referrals: PRIMARY CARE, [Primary Care Provider] - 3-5 Days [facility] [Outside] - 3-5 Days Time of Disposition: 12:09
[2018-05-22] MEDS ORDERED: APRESOLINE IV ONE (12:30)
[2018-05-22 12:34] VITALS: BP 137/83
== END 2018-05-22 12:40 | disposition home or self-care (01) ==
LOC: ED 09:06
DX: K92.2 Gastrointestinal hemorrhage, unspecified (principal); I10 Essential (primary) hypertension; K21.9 Gastro-esophageal reflux disease without esophagitis; M19.90 Unspecified osteoarthritis, unspecified site; Z87.891 Personal history of nicotine dependence
CPT/HCPCS: 36415; 80053; 84703; 85025; 85610; 85730; 86850; 86900; 86901; 96374; 96375; 96376; 99284; J2405; J3010; J7030; 96361

== ENCOUNTER 2018-06-14 19:45 | Emergency (ER) | payer MEDICAID ==
[2018-06-14 20:48] LABS: Basophils # (Auto) 0.1 K/mm3 (0.0-0.1); Basophils % (Auto) 0.8 % (0.0-1.8); Eosinophils # (Auto) 0.3 K/mm3 (0.0-0.4); Eosinophils % (Auto) 2.4 % (0.0-4.3); Hematocrit 31.7 % (30.3-42.9); Hemoglobin 11.3 gm/dl (10.1-14.3); Lymphocytes # (Auto) 2.1 K/mm3 (1.2-5.4); Lymphocytes % (Auto) 16.8 % (13.4-35.0); Mean Corpuscular HGB Conc 36 % (30-34); Mean Corpuscular Hemoglobin 33 pg (28-32); Mean Corpuscular Volume 92 fl (79-97); Monocytes # (Auto) 0.9 K/mm3 (0.0-0.8); Monocytes % (Auto) 6.9 % (0.0-7.3); Platelet Count 194 K/mm3 (140-440); Red Blood Count 3.44 M/mm3 (3.65-5.03); Red Cell Distribution Width 13.2 % (13.2-15.2)
[2018-06-14 20:57] LABS: BUN/Creatinine Ratio 23; Blood Urea Nitrogen 14 mg/dL (7-17); Calcium 9.2 mg/dL (8.4-10.2); Hemolysis Index 7
--- NOTE | 2018-06-14 21:20 | Emergency Department Report ---
ED General Adult HPI - General Chief complaint: Chest Pain Stated complaint: CP Time Seen by Provider: 06/14/18 20:14 Source: patient, EMS Mode of arrival: Stretcher Limitations: No Limitations - History of Present Illness Initial comments: 48-year-old woman became ill this afternoon shortly after waking from nap, reporting that she didn't feel quite right, ill at ease, which subsequently developed with about 10 or 15 minutes to nausea and vomiting, twice, with central chest pain, all occurring shortly after taking 2 medications that she started in the previous 4 days, Zyprexa and Zoloft. She did not pass out, but she felt weak, and she feels like her skin is hot as if she has a sunburn. She is an insulin-dependent diabetic, the blood sugars have been running normally. She has not felt feverish, she has not had any cough or congestion, and she has not had any diarrhea or recent exposures. Patient described discomfort and chest as an ache in the central portion of the chest, with tightness, with difficulty breathing, some accentuation with movement, onset after vomiting, no diaphoresis, no radiation of discomfort. She characterizes the discomfort as 10 out of 10, and EMS states patient aspirin , as well as nitroglycerin, which did not ease the discomfort, and caused a headache. Patient still has moderate discomfort in her chest at time of examination, has mild nausea, has not vomited, has no new symptoms. Severity scale (0 -10): 10 - Related Data Home Medications Medication Instructions Recorded Confirmed Last Taken Nortriptyline(Nf) [Pamelor(Nf)] 75 mg PO QDAY 11/30/15 05/22/18 05/21/18 ALPRAZolam [Xanax TAB] 1 mg PO TID 03/23/16 05/22/18 05/21/18 Carvedilol [Coreg] 3.125 mg PO BID 05/22/18 05/22/18 05/21/18 HYDROcodone/APAP 10-325 [[place] 1 each PO Q8HR PRN 05/22/18 05/22/18 05/21/18 10/325] Pantoprazole [Protonix] 40 mg PO QDAY 05/22/18 05/22/18 05/21/18 Promethazine [Phenergan TAB] 25 mg PO Q6HR PRN 05/22/18 05/22/1805/21/18 Previous Rx's Medication Instructions Recorded Last Taken Type Lisinopril/Hydrochlorothiazide 1 tab PO QDAY #30 tab 06/28/17 05/21/18 Rx [Zestoretic 20-12.5 mg] Insulin Glargine [Lantus] 30 unit SUB-Q QHS #3 vial 02/28/18 05/21/18 Rx metFORMIN [Glucophage] 500 mg PO BID #60 tablet 02/28/18 05/21/18 Rx Ciprofloxacin HCl [Ciprofloxacin 500 mg PO Q12H #14 tab 05/22/18 Unknown Rx TAB] Dicyclomine [Bentyl] 10 mg PO QID #20 capsule 05/22/18 Unknown Rx metroNIDAZOLE [Flagyl] 500 mg PO Q12HR #14 tab 05/22/18 Unknown Rx Allergies Allergy/AdvReac Type Severity Reaction Status Date / Time cyclobenzaprine HCl Allergy Hives Verified 06/20/17 14:45 [From Flexeril] ED Review of Systems ROS: Stated complaint: CP Other details as noted in HPI Constitutional: malaise, weakness. denies: chills, fever ENT: denies: throat pain Respiratory: denies: cough, shortness of breath Cardiovascular: chest pain. denies: palpitations, dyspnea on exertion, edema, syncope Endocrine: denies: excessive sweating, flushing Gastrointestinal: abdominal pain, nausea, vomiting. denies: diarrhea Genitourinary: denies: urgency, dysuria Musculoskeletal: back pain (chronic, lumbar area, bilateral, thoracic spine cyst ) Skin: other (sensation of burning to skin generally) Neurological: headache (secondary to nitroglycerin). denies: weakness, numbness , paresthesias Psychiatric: depression (chronic, Zoloft was prescribed for this) ED Past Medical Hx - Past Medical History Previous Medical History?: Yes Hx Hypertension: Yes Hx Heart Attack/AMI: (Cardiomyopathy) Hx Congestive Heart Failure: No Hx Diabetes: Yes Hx GERD: Yes Hx Liver Disease: Yes (HEPATITIS C) Hx Arthritis: Yes Hx Seizures: Yes Hx Psychiatric Treatment: Yes (ANXIETY) Hx Asthma: No Hx COPD: No Additional medical history: foot spurs,. DDD. mass L breast. Chronic pain. Spinal cyst. Diverticulitis - Surgical History Past Surgical History?: Yes Additional Surgical History: , heart cath - Social History Smoking Status: Never Smoker Substance Use Type: None - Medications Home Medications: Home Medications Medication Instructions Recorded Confirmed Last Taken Type Nortriptyline(Nf) [Pamelor(Nf)] 75 mg PO QDAY 11/30/15 05/22/18 05/21/18 History ALPRAZolam [Xanax TAB] 1 mg PO TID 03/23/16 05/22/18 05/21/18 History Lisinopril/Hydrochlorothiazide 1 tab PO QDAY #30 tab 06/28/17 05/22/18 05/21/18 Rx [Zestoretic 20-12.5 mg] Insulin Glargine [Lantus] 30 unit SUB-Q QHS #3 vial 02/28/18 05/22/18 05/21/18 Rx metFORMIN [Glucophage] 500 mg PO BID #60 tablet 02/28/18 05/22/18 05/21/18 Rx Carvedilol [Coreg] 3.125 mg PO BID 05/22/18 05/22/18 05/21/18 History Ciprofloxacin HCl [Ciprofloxacin 500 mg PO Q12H #14 tab 05/22/18 Unknown Rx TAB] Dicyclomine [Bentyl] 10 mg PO QID #20 capsule 05/22/18 Unknown Rx HYDROcodone/APAP 10-325 [[place] 1 each PO Q8HR PRN 05/22/18 05/22/18 05/21/18 History 10/325] Pantoprazole [Protonix] 40 mg PO QDAY 05/22/18 05/22/18 05/21/18 History Promethazine [Phenergan TAB] 25 mg PO Q6HR PRN 05/22/18 05/22/18 05/21/18 History metroNIDAZOLE [Flagyl] 500 mg PO Q12HR #14 tab 05/22/18 Unknown Rx ED Physical Exam - General Limitations: No Limitations General appearance: alert, in no apparent distress - Head Head exam: Present: atraumatic, normocephalic - Eye Eye exam: Present: PERRL - ENT ENT exam: Present: mucous membranes dry - Neck Neck exam: Present: normal inspection, full ROM. Absent: tenderness - Respiratory Respiratory exam: Present: normal lung sounds bilaterally, chest wall tenderness (marked bilateral costochondral tenderness, reproduces the patient's discomfort). Absent: respiratory distress, wheezes, rales, rhonchi, accessory muscle use - Cardiovascular Cardiovascular Exam: Present: regular rate, normal heart sounds - GI/Abdominal GI/Abdominal exam: Present: soft, tenderness (mild nonlocalized lower abdominal tenderness, no epigastric tenderness to palpation), normal bowel sounds. Absent : guarding, rebound, rigid - Rectal Rectal exam: Present: deferred - Extremities Exam Extremities exam: Present: normal inspection. Absent: pedal edema, calf tenderness - Back Exam Back exam: Present: tenderness (bilaterally, lumbar myofascial, midlumbar region around CVA areas bilaterally), paraspinal tenderness. Absent: vertebral tenderness, rash noted - Neurological Exam Neurological exam: Present: alert, oriented X3, CN II-XII intact. Absent: motor sensory deficit - Psychiatric Psychiatric exam: Present: normal affect, normal mood - Skin Skin exam: Present: warm, dry, intact, normal color, other. Absent: rash, diaphoretic, erythema (oral appearance, no evidence of sunburn or erythema, no contusion or edema), petechiae, pallor, ecchymosis ED Course Vital Signs 06/14/18 06/14/18 06/14/18 19:50 20:00 20:14 Temperature 36.9 C Pulse Rate 92 H Respiratory 20 20 Rate Blood Pressure 158/86 O2 Sat by Pulse 97 96 97 Oximetry 06/14/18 06/14/18 06/14/18 20:30 21:00 21:30 Temperature Pulse Rate 93 H 98 H 94 H Respiratory 27 H 18 21 Rate Blood Pressure 160/85 166/83 154/93 O2 Sat by Pulse 97 98 98 Oximetry 06/14/18 06/14/18 06/14/18 22:00 22:06 22:30 Temperature Pulse Rate 96 H 95 H Respiratory 19 16 19 Rate Blood Pressure 161/86 153/83 O2 Sat by Pulse 98 97 Oximetry 06/14/18 06/14/18 06/15/18 23:00 23:30 00:00 Temperature Pulse Rate 95 H 95 H 93 H Respiratory 19 19 8 L Rate Blood Pressure 158/86 141/79 164/96 O2 Sat by Pulse 97 96 95 Oximetry - Reevaluation(s) Reevaluation #1: 06/15/18 00:17 Patient stable on recheck, although she does have some recurrence of pain, and is pressing machine tender in the costochondral area, which is the source of her discomfort. Patient will be medicated with hydrocodone, as she is on chronic pain management, has not had her evening dose which she usually takes at home. ED Medical Decision Making - Lab Data Result diagrams: 06/14/18 20:24 06/14/18 20:24 Initial troponin negative - EKG Data -: EKG Interpreted by Me (low-voltage, sinus at 90 bpm, normal QRS complexes otherwise, normal axis, ) EKG shows normal: sinus rhythm, ST-T waves (normal ST segments and T waves) - EKG Data When compared to previous EKG there are: no significant change (prior tracing of 02/28/2018, also low-voltage, normal otherwise, possible left atrial enlargement) - Radiology Data interpreted by me: Normal chest, normal heart size, clear lung rodríguez - Medical Decision Making Patient has chest wall discomfort, primarily in the costochondral area, typical of costochondritis, and his negative evaluation for acute coronary syndrome or myocardial infarction, with 2 negative EKGs, 2 negative troponin levels, and symptoms are more compatible with reaction to medications, possibly mild esophagitis, or gastritis. She is feeling improved after being medicated symptomatically, and declines offer for medication for pain, as she is under chronic pain management through her local specialists, and is currently taking hydrocodone on a regular basis, which is more than what I would've prescribed anyway. She also reports she has sufficient amounts of Zofran for nausea, and that was primarily concerned about getting a check to be sure that there was no heart attack. Patient reassured that she is stable for referral home, to take her medicines with food, and have repeat visit with her doctor. - Differential Diagnosis dyspepsia, medication induced, location reaction, costochondritis Critical Care Time: No Critical care attestation.: If time is entered above; I have spent that time in minutes in the direct care of this critically ill patient, excluding procedure time. ED Disposition Clinical Impression: Chest wall pain, Costochondritis Disposition: [id number] TO HOME OR SELFCARE Is pt being admited?: No Does the pt Need Aspirin: No Condition: Stable Instructions: Chest Pain (ED) Additional Instructions: Examination today is negative for any signs of heart attack, with normal blood work, showing no signs of heart damage, and EKGs normal as well. Her symptoms were probably instigated by reaction to the medications, which have irritated either the esophagus or the stomach, causing her nausea and vomiting, and irritating chronic discomfort in your costochondral area, which causes chest pain. This can be treated with your regular medications that you take for your chronic pain, hydrocodone, and he may also take anti-inflammatories such as ibuprofen or naproxen, on an outpatient basis, following the routine directions on the packaging, as long as he tolerate these medicines as well. There are no other restrictions, you may resume your other medications as before , but we recommend taking your routine medications with a small snack or during your meals. Have repeat examination by your doctor in the coming week, and he may return any time for repeat examination if you have any severe or new and worrisome symptoms. Referrals: PRIMARY CARE, [Primary Care Provider] - 3-5 Days Time of Disposition: 00:21
[2018-06-14] MEDS ORDERED: ZOFRAN ODT PO ONE (21:25)
[2018-06-14] MEDS ORDERED: NACL 0.9% 500 ML 500 ML IV ONE (21:27)
[2018-06-14] MEDS ORDERED: NORCO 5/325 PO ONE (21:31)
--- NOTE | 2018-06-14 22:21 | XRay Report ---
FINAL REPORT EXAM: XR CHEST 1V AP HISTORY: chest pain TECHNIQUE: AP portable view of the chest. PRIORS: 02/28/2018 FINDINGS: The cardiomediastinal silhouette appears normal. The lungs are clear. The bones and soft tissues are unremarkable. IMPRESSION: No evidence of acute cardiopulmonary disease.
[2018-06-15 00:09] VITALS: BP 164/96
[2018-06-15] MEDS ORDERED: NORCO 10/325 PO ONE (00:16)
== END 2018-06-15 00:36 | disposition home or self-care (01) ==
LOC: ED 19:45
DX: M94.0 Chondrocostal junction syndrome [Tietze] (principal); R11.2 Nausea with vomiting, unspecified; I10 Essential (primary) hypertension; E11.9 Type 2 diabetes mellitus without complications; M19.90 Unspecified osteoarthritis, unspecified site; F41.9 Anxiety disorder, unspecified; I42.9 Cardiomyopathy, unspecified; Z86.19 Personal history of other infectious and parasitic diseases; Z88.2 Allergy status to sulfonamides; Z79.4 Long term (current) use of insulin
CPT/HCPCS: 36415; 71045; 80048; 84484; 85025; 93005; 93010; 96360; 96361; 99285; J7040; Q0162

== ENCOUNTER 2018-07-13 21:15 | Emergency (ER) | payer MEDICAID ==
[2018-07-13] MEDS ORDERED: ASPIRIN ONE (21:53)
[2018-07-13 21:56] VITALS: BP 134/84
[2018-07-13] MEDS ORDERED: ASPIRIN PO ONE (21:56)
[2018-07-13 22:52] LABS: Basophils # (Auto) 0.1 K/mm3 (0.0-0.1); Basophils % (Auto) 0.6 % (0.0-1.8); Eosinophils # (Auto) 0.2 K/mm3 (0.0-0.4); Eosinophils % (Auto) 1.9 % (0.0-4.3); Hematocrit 36.5 % (30.3-42.9); Lymphocytes # (Auto) 3.5 K/mm3 (1.2-5.4); Lymphocytes % (Auto) 31.2 % (13.4-35.0); Mean Corpuscular HGB Conc 33 % (30-34); Mean Corpuscular Hemoglobin 31 pg (28-32); Mean Corpuscular Volume 94 fl (79-97); Monocytes # (Auto) 0.7 K/mm3 (0.0-0.8); Monocytes % (Auto) 6.2 % (0.0-7.3); Platelet Count 234 K/mm3 (140-440); Red Blood Count 3.88 M/mm3 (3.65-5.03); Red Cell Distribution Width 13.3 % (13.2-15.2)
[2018-07-13 23:10] LABS: BUN/Creatinine Ratio 29; Blood Urea Nitrogen 20 mg/dL (7-17); Calcium 9.9 mg/dL (8.4-10.2); Hemolysis Index 0
== END 2018-07-14 00:45 ==
LOC: ED 21:15
DX: R07.89 Other chest pain (principal); Z53.21 Procedure and treatment not carried out due to patient leaving prior to being seen by health care provider
CPT/HCPCS: 36415; 80048; 84484; 84703; 85025; 93005; 93010

== ENCOUNTER 2018-07-17 09:10 | Emergency (ER) | payer MEDICAID ==
[2018-07-17 09:20] VITALS: BP 106/71
--- NOTE | 2018-07-17 11:42 | Emergency Department Report ---
HPI - General Chief Complaint: Abdominal Pain Time Seen by Provider: 07/17/18 10:42 - HPI HPI: 48-year-old female presents to the emergency department with complaint of constipation and some abdominal distention. The patient says she has not had a bowel movement since sometimes last week. She has used fiber supplementation, stool softeners and laxatives without any relief. The patient is on chronic pain medication through a pain management clinic. She was recently admitted and discharged from [facility] after being here for some chest pain and CHF issues. She denies any current chest pain, shortness of breath, lower extremity swelling, fever. She does have a past medical history of arthritis, CHF, diabetes, cardiomyopathy, hypertension, diverticulosis, seizures and this chronic pain. No dysuria, vaginal bleeding or discharge. ED Past Medical Hx - Past Medical History Previous Medical History?: Yes Hx Hypertension: Yes Hx Heart Attack/AMI: (Cardiomyopathy) Hx Congestive Heart Failure: Yes Hx Diabetes: Yes Hx GERD: Yes Hx Liver Disease: Yes (HEPATITIS C-treated) Hx Arthritis: Yes Hx Seizures: Yes Hx Psychiatric Treatment: Yes (ANXIETY) Hx Asthma: No Hx COPD: No Additional medical history: foot spurs,. DDD. mass L breast. Chronic pain. Spinal cyst. Diverticulitis - Surgical History Past Surgical History?: Yes Additional Surgical History: , heart cath - Social History Smoking Status: Never Smoker Substance Use Type: Alcohol - Medications Home Medications: Home Medications Medication Instructions Recorded Confirmed Last Taken Type Nortriptyline(Nf) [Pamelor(Nf)] 75 mg PO QHS 11/30/15 07/15/18 05/21/18 History ALPRAZolam [Xanax TAB] 1 mg PO TID 03/23/16 07/15/18 05/21/18 History Insulin Glargine [Lantus VIAL] 30 unit SUB-Q QHS #3 vial 02/28/18 07/15/1805/21 Rx Carvedilol [Coreg] 3.125 mg PO BID 05/22/18 07/15/18 05/21/18 History HYDROcodone/APAP 10-325 [[place] 1 each PO Q8HR PRN 05/22/18 07/15/18 05/21/18 History 10-325 mg TAB] Pantoprazole [Protonix TAB] 40 mg PO QDAY 05/22/18 07/15/18 05/21/18 History Promethazine [Phenergan TAB] 25 mg PO Q6HR PRN 05/22/18 07/15/18 05/21/18 History Lisinopril/Hydrochlorothiazide 1 each PO BID 07/15/18 07/15/18 Unknown History [Zestoretic 20-12.5 mg] Lispro Insulin [Humalog] 5 unit SQ TIDWM 07/15/18 07/15/18 Unknown History metFORMIN [Glucophage] 500 mg PO QDAY 07/15/18 07/15/18 Unknown History Famotidine [Pepcid] 10 mg PO BID #60 tablet 07/16/18 Unknown Rx ED Review of Systems ROS: Stated complaint: CRAMPING/STOMACH SWELLING Other details as noted in HPI Comment: All other systems reviewed and negative Constitutional: denies: chills, fever Eyes: denies: eye pain, eye discharge, vision change ENT: denies: ear pain, throat pain Respiratory: denies: cough, shortness of breath, wheezing Cardiovascular: denies: chest pain, palpitations Gastrointestinal: abdominal pain, constipation. denies: vomiting, diarrhea Genitourinary: denies: urgency, dysuria, discharge Musculoskeletal: denies: back pain, joint swelling, arthralgia Skin: denies: rash, lesions Neurological: denies: headache, weakness, paresthesias Physical Exam - Physical Exam Vital Signs: Vital Signs 07/17/18 09:16 Temperature 98.1 F Pulse Rate 100 H Respiratory 18 Rate Blood Pressure 106/71 O2 Sat by Pulse 99 Oximetry Physical Exam: GENERAL: The patient is well-developed well-nourished. HENT: Normocephalic. Atraumatic. Patient has moist mucous membranes. EYES: Extraocular motions are intact. Pupils equal reactive to light bilaterally. NECK: Supple. Trachea is midline. CHEST/LUNGS: Clear to auscultation. There is no respiratory distress noted. HEART/CARDIOVASCULAR: Regular. There is no tachycardia. There is no murmur. ABDOMEN: Abdomen is soft. Mild lower abdominal tenderness to palpation. No guarding. Patient has normal bowel sounds. SKIN: Skin is warm and dry. NEURO: The patient is awake, alert, and oriented. The patient is cooperative. The patient has no focal neurologic deficits. The patient has normal speech. MUSCULOSKELETAL: There is no tenderness or deformity. There is no evidence of acute injury. ED Course Vital Signs 07/17/18 09:16 Temperature 98.1 F Pulse Rate 100 H Respiratory 18 Rate Blood Pressure 106/71 O2 Sat by Pulse 99 Oximetry ED Medical Decision Making - Radiology Data Radiology results: image reviewed interpreted by me: Abdominal x-ray shows a large amount of stool volume throughout the intestines but no obvious signs of obstruction. - Medical Decision Making Patient presents with complaint of constipation and some abdominal discomfort secondary to the fact that she has not had a bowel movement in about one week. She says she has been using fiber supplements, stool softeners and laxatives without much relief. Her abdomen is soft, nontoxic, non-rigid but she does have some reproducible lower abdominal tenderness. Abdominal x-ray shows a large amount of stool throughout the intestines but no signs of infection. Patient was given 2 soapsuds enemas and after the second one the patient had a large and satisfactory bowel movement and then began asking for discharge home. Patient instructed to follow up with her primary care physician and [place] [employer] to look into this chronic constipation issues and she is on chronic opiate therapy. She will return to the ER with any worsening of her symptoms or any acute distress. Patient previously had some blood work done during her admission less than 2 days ago so this was not repeated at this time. - Differential Diagnosis constipation, bowel obstruction, ileus Critical Care Time: No Critical care attestation.: If time is entered above; I have spent that time in minutes in the direct care of this critically ill patient, excluding procedure time. ED Disposition Clinical Impression: Increased stool volume, Constipation due to opioid therapy Disposition: TO HOME OR SELFCARE Is pt being admited?: No Condition: Stable Instructions: Constipation (ED), Abdominal Pain (ED) Additional Instructions: Please follow-up with your primary care physician and [place] [employer]. Return to the emergency Department with any worsening of your symptoms or any acute distress. Referrals: PRIMARY MD VARGAS [Primary Care Provider] - 2-3 Days Time of Disposition: 13:34
--- NOTE | 2018-07-17 13:40 | XRay Report ---
ABDOMEN RADIOGRAPHS INDICATION: Abdominal pain, constipation. COMPARISON: 06/26/2017 CT. FINDINGS: Frontal abdominal radiographs again demonstrate moderate stool throughout colon/possible constipation. No abnormal small bowel dilatation, pneumatosis or pneumoperitoneum. Clear visualized lung bases. Demineralized bones with mild mid lumbar levoscoliosis and multilevel degenerative changes. CONCLUSION: Constipation again suspected, as described. Please correlate. Thank you for the opportunity to participate in this patient's care.
== END 2018-07-17 13:43 | disposition home or self-care (01) ==
LOC: ED 09:10
DX: K59.00 Constipation, unspecified (principal); I11.0 Hypertensive heart disease with heart failure; E11.9 Type 2 diabetes mellitus without complications; K21.9 Gastro-esophageal reflux disease without esophagitis; F41.9 Anxiety disorder, unspecified; Z79.4 Long term (current) use of insulin; Z86.19 Personal history of other infectious and parasitic diseases
CPT/HCPCS: 74019; 99283

== ENCOUNTER 2018-07-24 03:34 | Emergency (ER) | payer MEDICAID ==
[2018-07-24 03:42] VITALS: BP 156/83
--- NOTE | 2018-07-24 06:17 | Emergency Department Report ---
ED Back Pain/Injury HPI - General Chief Complaint: Back Pain/Injury Stated Complaint: BACK PAIN Time Seen by Provider: 07/24/18 06:13 Source: patient Limitations: No Limitations - History of Present Illness Initial Comments: Patient is here for chronic back pain which she said has been ongoing for the past several years. Patient follows up at the pain clinic and she is also on [place] 10mg for her chronic back pain prescribed by the pain clinic. She denies any recent fall or aggravating injury to her back. Patient is asking for IV narcotics in the ED today. I explained to her that before I can give her IV narcotics I have to investigate by doing blood work and imaging study to find out what is causing her back pain exacerbation. Patient said she has her [place] 10mg prescription at home but she prefers to get IV narcotic shots. I also made it clear to her that I will not be able to discharge her with narcotic prescription since she already goes to a pain clinic for her chronic back pain management. I tried to find out from her why she has not contacted a pain clinic since this pain has been ongoing for the past one week. Patient got upset with me and demanded to get IV narcotics. I told her that it will not be possible without also doing an investigation to find out what is causing the pain. I informed her that I will have to do blood work and imaging study while she is in the ED getting pain medication. I cannot give her pain medication alone without adequately investigating the cause of the pain. She said she is not here for that and she is only here to get IV narcotics. She said that other doctors in the past have been giving her IV narcotics every time she walks into the emergency room. I told her that the appropriate thing to do is to be investigated to find out the cause of the pain while treating the pain. She got mad and left the ED with her saying that if she will not give her IV narcotic immediately she will go. She got picked up her hand bag left the emergency room with her . The manner with which she got up from her chair and walked out of the ED does not resemble someone who has a back pain. She has a steady and fast gait without any antagic component. She basically got up quickly and almost ran out of the ED with out any sign of someone who has a back pain. Clinically the patient does not look to be in pain while she was sitting down in her room. She came to the emergency room just to get IV narcotics according to her. From my clinical finding, patient is narcotic seeking. I looked at her medical record and noted that she has been getting narcotics for a long time. She is also a patient who has had chronic back pain and their is no reason for an aggravation like a recent fall or trauma/injury to her back. Patient has had multiple visits to this emergency department as evidenced from her medical records. I do not think that the best way to manage this patient chronic back pain is to encourage her by giving her IV narcotics every time she steps into the emergency room without even investigating to find out what causing the pain. I also do not want to encourage a behavior of her just coming to the ED to get an IV narcotic shot any time she feels so without a medical reason. I was open to given IV narcotics but I still want to investigate to find out what is causing the pain so that I treat the course. However she was not willing to let me investigate the cause of back pain. She just wanted IV narcotics and nothing else. That is not a good way to practice medicine in my opinion. I encouraged her to come back to the emergency room and get the proper evaluation if she changes her mind. Complaint: back pain -: Gradual Similar Symptoms Previously: Yes Place: home Radiation: none Severity: Unable to Determine Quality: sharp Consistency: constant Improves With: medication Worsens With: none Context: other (No trauma or injury) Associated Symptoms: denies other symptoms Treatments Prior to Arrival: other medications ([place] 10mg) - Related Data Home Medications Medication Instructions Recorded Confirmed Last Taken Nortriptyline(Nf) [Pamelor(Nf)] 75 mg PO QHS 11/30/15 07/15/18 05/21/18 ALPRAZolam [Xanax TAB] 1 mg PO TID 03/23/16 07/15/18 05/21/18 Carvedilol [Coreg] 3.125 mg PO BID 05/22/18 07/15/18 05/21/18 HYDROcodone/APAP 10-325 [[place] 1 each PO Q8HR PRN 05/22/18 07/15/18 05/21/18 10-325 mg TAB] Pantoprazole [Protonix TAB] 40 mg PO QDAY 0707/15/18 05/21/18 Promethazine [Phenergan TAB] 25 mg PO Q6HR PRN 05/22/18 07/15/18 05/21/18 Lisinopril/Hydrochlorothiazide 1 each PO BID 07/15/18 07/15/18 Unknown [Zestoretic 20-12.5 mg] Lispro Insulin [Humalog] 5 unit SQ TIDWM 07/15/18 07/15/18 Unknown metFORMIN [Glucophage] 500 mg PO QDAY 07/15/18 07/15/18 Unknown Previous Rx's Medication Instructions Recorded Last Taken Type Insulin Glargine [Lantus VIAL] 30 unit SUB-Q QHS #3 vial 02/28/18 05/21/18 Rx Famotidine [Pepcid] 10 mg PO BID #60 tablet 07/16/18 Unknown Rx Allergies Allergy/AdvReac Type Severity Reaction Status Date / Time cyclobenzaprine HCl Allergy Hives Verified 07/17/18 09:20 [From Flexeril] ED Review of Systems ROS: Stated complaint: BACK PAIN Other details as noted in HPI Comment: All other systems reviewed and negative Constitutional: no symptoms reported Eyes: denies: eye pain ENT: denies: ear pain Respiratory: no symptoms reported Cardiovascular: denies: chest pain, palpitations Endocrine: no symptoms reported Gastrointestinal: denies: abdominal pain, nausea, vomiting, diarrhea, constipation Genitourinary: denies: urgency, dysuria Musculoskeletal: back pain (Chronic back pain) Skin: denies: rash, lesions Neurological: denies: headache, weakness, numbness Psychiatric: denies: anxiety, depression Hematological/Lymphatic: denies: easy bleeding, easy bruising ED Past Medical Hx - Past Medical History Previous Medical History?: Yes Hx Hypertension: Yes Hx Heart Attack/AMI: (Cardiomyopathy) Hx Congestive Heart Failure: Yes Hx Diabetes: Yes Hx GERD: Yes Hx Liver Disease: Yes (HEPATITIS C-treated) Hx Arthritis: Yes Hx Seizures: Yes Hx Psychiatric Treatment: Yes (ANXIETY) Hx Asthma: No Hx COPD: No Additional medical history: foot spurs,. DDD. mass L breast. Chronic pain. Spinal cyst. Diverticulitis - Surgical History Past Surgical History?: Yes Additional Surgical History: , heart cath - Social History Smoking Status: Never Smoker Substance Use Type: None - Medications Home Medications: Home Medications Medication Instructions Recorded Confirmed Last Taken Type Nortriptyline(Nf) [Pamelor(Nf)] 75 mg PO QHS 11/30/15 07/15/18 05/21/18 History ALPRAZolam [Xanax TAB] 1 mg PO TID 03/23/16 07/15/18 05/21/18 History Insulin Glargine [Lantus VIAL] 30 unit SUB-Q QHS #3 vial 02/28/18 07/15/1805/21 Rx Carvedilol [Coreg] 3.125 mg PO BID 05/22/18 07/15/18 05/21/18 History HYDROcodone/APAP 10-325 [[place] 1 each PO Q8HR PRN 05/22/18 07/15/18 05/21/18 History 10-325 mg TAB] Pantoprazole [Protonix TAB] 40 mg PO QDAY 05/22/18 07/15/18 05/21/18 History Promethazine [Phenergan TAB] 25 mg PO Q6HR PRN 05/22/18 07/15/18 05/21/18 History Lisinopril/Hydrochlorothiazide 1 each PO BID 07/15/18 07/15/18 Unknown History [Zestoretic 20-12.5 mg] Lispro Insulin [Humalog] 5 unit SQ TIDWM 07/15/18 07/15/18 Unknown History metFORMIN [Glucophage] 500 mg PO QDAY 07/15/18 07/15/18 Unknown History Famotidine [Pepcid] 10 mg PO BID #60 tablet 07/16/18 Unknown Rx ED Physical Exam - General Limitations: No Limitations General appearance: alert, in no apparent distress - Head Head exam: Present: atraumatic, normocephalic, normal inspection - Eye Eye exam: Present: normal appearance, PERRL, EOMI Pupils: Present: normal accommodation - ENT ENT exam: Present: normal exam, mucous membranes moist - Neck Neck exam: Present: normal inspection, full ROM - Respiratory Respiratory exam: Present: normal lung sounds bilaterally. Absent: respiratory distress, wheezes, rales, rhonchi, stridor - Cardiovascular Cardiovascular Exam: Present: regular rate, normal rhythm, normal heart sounds - GI/Abdominal GI/Abdominal exam: Present: soft, normal bowel sounds. Absent: distended, tenderness, guarding, rebound, rigid - Extremities Exam Extremities exam: Present: normal inspection, full ROM, normal capillary refill - Back Exam Back exam: Present: normal inspection, full ROM. Absent: tenderness, paraspinal tenderness, vertebral tenderness - Neurological Exam Neurological exam: Present: alert, oriented X3, CN II-XII intact, normal gait - Psychiatric Psychiatric exam: Present: normal affect, normal mood - Skin Skin exam: Present: warm, dry, intact, normal color. Absent: rash ED Course Vital Signs 07/24/18 03:40 Temperature 97.9 F Pulse Rate 84 Respiratory 16 Rate Blood Pressure 156/83 O2 Sat by Pulse 100 Oximetry ED Medical Decision Making - Medical Decision Making Narcotic Seeking Behavior. Chronic Lower Back Pain. Critical care attestation.: If time is entered above; I have spent that time in minutes in the direct care of this critically ill patient, excluding procedure time. ED Disposition Clinical Impression: Request for narcotic pain medication, Narcotic dependence, Narcotic abuse, continuous Chronic lower back pain Qualifiers: Back pain laterality: unspecified Sciatica presence: unspecified whether sciatica present Qualified Code(s): M54.5 - Low back pain; G89.29 - Other chronic pain Disposition: 07 ELOPED Is pt being admited?: No Does the pt Need Aspirin: No Condition: Stable Referrals: PRIMARY CARE, [Primary Care Provider] - 3-5 Days Time of Disposition: 06:35
== END 2018-07-24 07:22 | disposition left against medical advice (07) ==
LOC: ED 03:34
DX: F11.20 Opioid dependence, uncomplicated (principal); G89.29 Other chronic pain; M54.5 Low back pain; I11.0 Hypertensive heart disease with heart failure; I50.9 Heart failure, unspecified; E11.9 Type 2 diabetes mellitus without complications; K21.9 Gastro-esophageal reflux disease without esophagitis; M19.90 Unspecified osteoarthritis, unspecified site; Z88.8 Allergy status to other drugs, medicaments and biological substances
CPT/HCPCS: 99281

== ENCOUNTER 2018-08-16 10:57 | Emergency (ER) | payer MEDICAID ==
[2018-08-16 11:06] VITALS: BP 107/72
[2018-08-16 12:06] LABS: Bacteria,Urine 2+ /HPF (Negative); Bilirubin,Urine NEG (Negative); Blood,Urine NEG (Negative); Color,Urine Amber (Yellow); Protein,Urine <15 mg/dL mg/dL (Negative)
[2018-08-16 12:10] LABS: WBC,Urine > 182.0 /HPF (0.0-6.0)
[2018-08-16] MEDS ORDERED: XYLOCAINE 1% MPF 5 mL INFILTRATI ONE (13:47)
[2018-08-16] MEDS ORDERED: ROCEPHIN IM ONE (13:47)
--- NOTE | 2018-08-16 14:11 | Emergency Department Report ---
ED Female HPI - General Chief complaint: Urogenital-Female Stated complaint: SIDE/BACK PAIN Time Seen by Provider: 08/16/18 13:47 Source: patient Mode of arrival: Ambulatory Limitations: No Limitations - History of Present Illness Initial comments: This is a 48-year-old female nontoxic, well nourished in appearance, no acute signs of distress presents to the ED with c/o of dysuria, polyuria, and urinary frequency with lower back pain x1 day. Patient denies any vaginal discharge, bleeding, ulcers or lesions. Patient denies any flank pain. Patient denies any pelvic or abdominal pain. Patient denies any nausea, vomiting, chest pain, shortness of breathe, fever, chills, headache, back pain, numbness, tingling, stiff neck. Patient denies any urinary symptoms. PMH includs DM, arthritis, CHF, GERD, cardiomyopathy, hypertension. MD Complaint: dysuria -: days(s) (1) Severity: mild Severity scale (0 -10): 8 Quality: burning Consistency: constant Improves with: none Worsens with: urination Associated Symptoms: dysuria, hematuria. denies: vaginal discharge, vaginal bleeding, abdominal pain, nausea/vomiting, fever/chills, headaches, loss of appetite, rash, seizure, shortness of breath, syncope, weakness - Related Data Home Medications Medication Instructions Recorded Confirmed Last Taken Nortriptyline(Nf) [Pamelor(Nf)] 75 mg PO QHS 11/30/15 07/15/18 05/21/18 ALPRAZolam [Xanax TAB] 1 mg PO TID 03/23/16 07/15/18 05/21/18 Carvedilol [Coreg] 3.125 mg PO BID 05/22/18 07/15/18 05/21/18 HYDROcodone/APAP 10-325 [[place] 1 each PO Q8HR PRN 05/22/18 07/15/18 05/21/18 10-325 mg TAB] Pantoprazole [Protonix TAB] 40 mg PO QDAY 05/22/18 07/15/18 05/21/18 Promethazine [Phenergan TAB] 25 mg PO Q6HR PRN 05/22/18 07/15/18 05/21/18 Lisinopril/Hydrochlorothiazide 1 each PO BID 07/15/18 07/15/18 Unknown [Zestoretic 20-12.5 mg] Lispro Insulin [Humalog] 5 unit SQ TIDWM 07/15/18 07/15/18 Unknown metFORMIN [Glucophage] 500 mg PO QDAY 07/15/18 07/15/18 Unknown Previous Rx's Medication Instructions Recorded Last Taken Type Insulin Glargine [Lantus VIAL] 30 unit SUB-Q QHS #3 vial 02/28/18 05/21/18 Rx Famotidine [Pepcid] 10 mg PO BID #60 tablet 07/16/18 Unknown Rx Ciprofloxacin HCl [Ciprofloxacin 500 mg PO Q12HR #14 tab 08/16/18 Unknown Rx TAB] Phenazopyridine [Pyridium] 200 mg PO BID #4 tab 08/16/18 Unknown Rx Allergies Allergy/AdvReac Type Severity Reaction Status Date / Time cyclobenzaprine HCl Allergy Hives Verified 07/17/18 09:20 [From Flexeril] ED Review of Systems ROS: Stated complaint: SIDE/BACK PAIN Other details as noted in HPI Constitutional: denies: chills, fever Eyes: denies: eye pain, eye discharge, vision change ENT: denies: ear pain, throat pain Respiratory: denies: cough, shortness of breath, wheezing Cardiovascular: denies: chest pain, palpitations Endocrine: no symptoms reported Gastrointestinal: denies: abdominal pain, nausea, diarrhea Genitourinary: urgency, dysuria, frequency, hematuria. denies: discharge, abnormal menses Musculoskeletal: denies: back pain, joint swelling, arthralgia Skin: denies: rash, lesions Neurological: denies: headache, weakness, paresthesias Psychiatric: denies: anxiety, depression Hematological/Lymphatic: denies: easy bleeding, easy bruising ED Past Medical Hx - Past Medical History Previous Medical History?: Yes Hx Hypertension: Yes Hx Heart Attack/AMI: (Cardiomyopathy) Hx Congestive Heart Failure: Yes Hx Diabetes: Yes Hx GERD: Yes Hx Liver Disease: Yes (HEPATITIS C-treated) Hx Arthritis: Yes Hx Seizures: Yes Hx Psychiatric Treatment: Yes (ANXIETY) Hx Asthma: No Hx COPD: No Additional medical history: foot spurs,. DDD. mass L breast. Chronic pain. Spinal cyst. Diverticulitis - Surgical History Past Surgical History?: Yes Additional Surgical History: , heart cath - Social History Smoking Status: Former Smoker Substance Use Type: Alcohol, Prescribed, Tranquilizers - Medications Home Medications: Home Medications Medication Instructions Recorded Confirmed Last Taken Type Nortriptyline(Nf) [Pamelor(Nf)] 75 mg PO QHS 11/30/15 07/15/18 05/21/18 History ALPRAZolam [Xanax TAB] 1 mg PO TID 03/23/16 07/15/18 05/21/18 History Insulin Glargine [Lantus VIAL] 30 unit SUB-Q QHS #3 vial 02/28/18 07/15/1805/21 Rx Carvedilol [Coreg] 3.125 mg PO BID 05/22/18 07/15/18 05/21/18 History HYDROcodone/APAP 10-325 [[place] 1 each PO Q8HR PRN 05/22/18 07/15/18 05/21/18 History 10-325 mg TAB] Pantoprazole [Protonix TAB] 40 mg PO QDAY 05/22/18 07/15/18 05/21/18 History Promethazine [Phenergan TAB] 25 mg PO Q6HR PRN 05/22/18 07/15/18 05/21/18 History Lisinopril/Hydrochlorothiazide 1 each PO BID 07/15/18 07/15/18 Unknown History [Zestoretic 20-12.5 mg] Lispro Insulin [Humalog] 5 unit SQ TIDWM 07/15/18 07/15/18 Unknown History metFORMIN [Glucophage] 500 mg PO QDAY 07/15/18 07/15/18 Unknown History Famotidine [Pepcid] 10 mg PO BID #60 tablet 07/16/18 Unknown Rx Ciprofloxacin HCl [Ciprofloxacin 500 mg PO Q12HR #14 tab 08/16/18 Unknown Rx TAB] Phenazopyridine [Pyridium] 200 mg PO BID #4 tab 08/16/18 Unknown Rx ED Physical Exam - General Limitations: No Limitations General appearance: alert, in no apparent distress - Head Head exam: Present: atraumatic, normocephalic - Eye Eye exam: Present: normal appearance Pupils: Present: normal accommodation - ENT ENT exam: Present: normal exam, mucous membranes moist - Neck Neck exam: Present: normal inspection, full ROM. Absent: tenderness, meningismus, lymphadenopathy - Respiratory Respiratory exam: Present: normal lung sounds bilaterally. Absent: respiratory distress, wheezes, rales, rhonchi, stridor - Cardiovascular Cardiovascular Exam: Present: regular rate, normal rhythm, normal heart sounds. Absent: irregular rhythm, systolic murmur, diastolic murmur, rubs, gallop - GI/Abdominal GI/Abdominal exam: Present: soft, normal bowel sounds - Extremities Exam Extremities exam: Present: normal inspection, full ROM, normal capillary refill. Absent: tenderness - Back Exam Back exam: Present: normal inspection, full ROM. Absent: tenderness, CVA tenderness (R), CVA tenderness (L), muscle spasm, paraspinal tenderness, vertebral tenderness, rash noted - Neurological Exam Neurological exam: Present: alert, oriented X3, normal gait - Psychiatric Psychiatric exam: Present: normal affect, normal mood - Skin Skin exam: Present: warm, dry, intact, normal color. Absent: rash ED Course Vital Signs 08/16/18 11:02 Temperature 97.7 F Pulse Rate 97 H Respiratory 18 Rate Blood Pressure 107/72 O2 Sat by Pulse 98 Oximetry - Reevaluation(s) Reevaluation #1: 08/16/18 14:10 Patient is speaking in full sentences with no signs of distress noted. ED Medical Decision Making - Medical Decision Making This is a 48-year-old female that presents with UTI. Patient is stable and was examined by me. UA obtained. Patient does not have any CVA tenderness. No signs or symptoms of pyelonephritis. Patient received Rocephin 1G in the ED. Patient is discharged with Cipro. Patient was instructed to Follow-up with a primary care doctor in 3-5 days or if symptoms worsen and continue return to emergency room as soon as possible. At time of discharge, the patient does not seem toxic or ill in appearance. No acute signs of distress noted. Patient agrees to discharge treatment plan of care. No further questions noted by the patient. Critical care attestation.: If time is entered above; I have spent that time in minutes in the direct care of this critically ill patient, excluding procedure time. ED Disposition Clinical Impression: UTI (urinary tract infection) Qualifiers: Urinary tract infection type: acute cystitis Hematuria presence: with hematuria Qualified Code(s): N30.01 - Acute cystitis with hematuria Disposition: TO HOME OR SELFCARE Is pt being admited?: No Does the pt Need Aspirin: No Condition: Stable Instructions: Urinary Tract Infection in Women (ED) Additional Instructions: Follow-up with a primary care doctor in 3-5 days or if symptoms worsen and continue return to emergency room as soon as possible. Prescriptions: Ciprofloxacin HCl [Ciprofloxacin TAB] 500 mg PO Q12HR #14 tab Phenazopyridine [Pyridium] 200 mg PO BID #4 tab Referrals: PRIMARY CAREMD [Primary Care Provider] - 3-5 Days ZEN DELGADO MD [Staff Physician] - 3-5 Days [facility] [Outside] - 3-5 Days [facility] [Outside] - 3-5 Days Forms: Work/School Release Form(ED)
== END 2018-08-16 14:48 | disposition home or self-care (01) ==
LOC: ED 10:57
DX: N39.0 Urinary tract infection, site not specified (principal); I11.0 Hypertensive heart disease with heart failure; I50.9 Heart failure, unspecified; I25.2 Old myocardial infarction; E11.9 Type 2 diabetes mellitus without complications; K21.9 Gastro-esophageal reflux disease without esophagitis; M19.90 Unspecified osteoarthritis, unspecified site; F41.9 Anxiety disorder, unspecified; Z87.891 Personal history of nicotine dependence; Z88.2 Allergy status to sulfonamides; Z79.4 Long term (current) use of insulin
CPT/HCPCS: 81001; 87076; 87086; 87186; 96372; 99283; J0696

== ENCOUNTER 2018-11-28 13:32 | Emergency (ER) | payer MEDICAID ==
[2018-11-28 13:48] VITALS: BP 180/91
[2018-11-28] MEDS ORDERED: ZOFRAN IV ONE (14:28)
--- NOTE | 2018-11-28 14:29 | Emergency Department Report ---
ED Abdominal Pain HPI - General Chief Complaint: Abdominal Pain Stated Complaint: LOWER BACK PAIN/VOMITING Time Seen by Provider: 11/28/18 14:23 Source: patient Mode of arrival: Ambulatory Limitations: No Limitations - History of Present Illness Initial Comments: 48 YO FEMALE WHO WAS IN ER 2 DAYS AGO. SEEN BY DR COHEN AND GOT A FULL WORK UP FOR ABD PAIN INCLUDING A CT. SHE WAS DC AND GIVEN FOLLOW UP. SHE DID NOT FOLLOW UP SHE IS HAVING INC PAIN TODAY SO CAME BACK TO ER. SHE STATES HER LORTAB 10 IS NOT EVEN TOUCH HER PAIN. -: days(s) - Related Data Home Medications Medication Instructions Recorded Confirmed Last Taken RX: Nortriptyline(Nf) [Pamelor(Nf)] 75 mg PO QHS 11/30/15 07/15/18 05/21/18 RX: ALPRAZolam [Xanax TAB] 1 mg PO TID 03/23/16 07/15/18 05/21/18 RX: Carvedilol [Coreg] 3.125 mg PO BID 05/22/18 07/15/18 05/21/18 RX: HYDROcodone/APAP 10-325 [[place] 1 each PO Q8HR PRN 05/22/18 07/15/18 05/21/18 10-325 mg TAB] RX: Pantoprazole [Protonix TAB] 40 mg PO QDAY 05/22/18 07/15/18 05/21/18 RX: Promethazine [Phenergan TAB] 25 mg PO Q6HR PRN 05/22/18 07/15/18 05/21/18 RX: Lisinopril/Hydrochlorothiazide 1 each PO BID 07/15/18 07/15/18 Unknown [Zestoretic 20-12.5 mg] RX: Lispro Insulin [Humalog] 5 unit SQ TIDWM 07/15/18 07/15/18 Unknown RX: metFORMIN [Glucophage] 500 mg PO QDAY 07/15/18 07/15/18 Unknown Previous Rx's Medication Instructions Recorded Last Taken Type RX: Insulin Glargine [Lantus VIAL] 30 unit SUB-Q QHS #3 vial 02/28/18 05/21/18 Rx RX: Famotidine [Pepcid] 10 mg PO BID #60 tablet 07/16/18 Unknown Rx Ciprofloxacin HCl [Ciprofloxacin 500 mg PO Q12HR #14 tab 08/16/18 Unknown Rx TAB] Phenazopyridine [Pyridium] 200 mg PO BID #4 tab 08/16/18 Unknown Rx Phenazopyridine [Pyridium] 200 mg PO BID PRN #10 tab 10/21/18 Unknown Rx RX: Lactulose 20 gm PO TID PRN #240 ml 10/21/18 Unknown Rx Dicyclomine [Bentyl] 20 mg PO QID PRN #20 tablet 11/26/18 Unknown Rx Ondansetron [Zofran Odt] 4 mg PO Q8HR PRN #20 tab.rapdis 11/26/18 Unknown Rx Allergies Allergy/AdvReac Type Severity Reaction Status Date / Time cyclobenzaprine HCl Allergy Hives Verified 11/28/18 13:45 [From Flexeril] ED Review of Systems ROS: Stated complaint: LOWER BACK PAIN/VOMITING Other details as noted in HPI ED Past Medical Hx - Past Medical History Hx Hypertension: Yes Hx CVA: No Hx Heart Attack/AMI: (Cardiomyopathy) Hx Congestive Heart Failure: Yes Hx Diabetes: Yes Hx Deep Vein Thrombosis: No Hx Pulmonary Embolism: No Hx GERD: Yes Hx Liver Disease: Yes (HEPATITIS C-treated) Hx Renal Disease: No Hx Sickle Cell Disease: No Hx Arthritis: Yes Hx Headaches / Migraines: No Hx Seizures: Yes Hx Kidney Stones: No Hx Psychiatric Treatment: Yes (ANXIETY) Hx Asthma: No Hx COPD: No Hx Tuberculosis: No Hx Dementia: No Hx HIV: No Additional medical history: foot spurs,. DDD. mass L breast. Chronic pain. Spinal cyst. Diverticulitis - Surgical History Hx Coronary Stent: No Hx Open Heart Surgery: No Hx Pacemaker: No Hx Internal Defibrillator: No Hx Cholecystectomy: No Hx Appendectomy: No Hx Breast Surgery: No Additional Surgical History: , heart cath. removal of teeth - Family History Family history: no significant - Social History Smoking Status: Never Smoker Substance Use Type: None - Medications Home Medications: Home Medications Medication Instructions Recorded Confirmed Last Taken Type RX: Nortriptyline(Nf) [Pamelor(Nf)] 75 mg PO QHS 11/30/15 07/15/18 05/21/18 History RX: ALPRAZolam [Xanax TAB] 1 mg PO TID 03/23/16 07/15/18 05/21/18 History RX: Insulin Glargine [Lantus VIAL] 30 unit SUB-Q QHS #3 vial 02/28/18 07/15/18 05/21/18 Rx RX: Carvedilol [Coreg] 3.125 mg PO BID 05/22/18 07/15/18 05/21/18 History RX: HYDROcodone/APAP 10-325 [[place] 1 each PO Q8HR PRN 05/22/18 07/15/18 05/21/18 History 10-325 mg TAB] RX: Pantoprazole [Protonix TAB] 40 mg PO QDAY 05/22/18 07/15/18 05/21/18 History RX: Promethazine [Phenergan TAB] 25 mg PO Q6HR PRN 05/22/18 07/15/18 05/21/18 History RX: Lisinopril/Hydrochlorothiazide 1 each PO BID 07/15/18 07/15/18 Unknown History [Zestoretic 20-12.5 mg] RX: Lispro Insulin [Humalog] 5 unit SQ TIDWM 07/15/18 07/15/18 Unknown History RX: metFORMIN [Glucophage] 500 mg PO QDAY 07/15/18 07/15/18 Unknown History RX: Famotidine [Pepcid] 10 mg PO BID #60 tablet 07/16/18 Unknown Rx Ciprofloxacin HCl [Ciprofloxacin 500 mg PO Q12HR #14 tab 08/16/18 Unknown Rx TAB] Phenazopyridine [Pyridium] 200 mg PO BID #4 tab 08/16/18 Unknown Rx Phenazopyridine [Pyridium] 200 mg PO BID PRN #10 tab 10/21/18 Unknown Rx RX: Lactulose 20 gm PO TID PRN #240 ml 10/21/18 Unknown Rx Dicyclomine [Bentyl] 20 mg PO QID PRN #20 tablet 11/26/18 Unknown Rx Ondansetron [Zofran Odt] 4 mg PO Q8HR PRN #20 tab.rapdis 11/26/18 Unknown Rx ED Physical Exam - General Limitations: No Limitations General appearance: alert - Head Head exam: Present: atraumatic - Eye Eye exam: Present: normal appearance - ENT ENT exam: Present: mucous membranes moist - Neck Neck exam: Present: normal inspection - Respiratory Respiratory exam: Present: normal lung sounds bilaterally - Cardiovascular Cardiovascular Exam: Present: regular rate - GI/Abdominal GI/Abdominal exam: Present: soft, tenderness, other (MOANING IN PAIN; SENDING HER FOR PAIN MEDS) - Rectal Rectal exam: Present: deferred - Extremities Exam Extremities exam: Present: normal inspection - Back Exam Back exam: Present: normal inspection - Neurological Exam Neurological exam: Present: alert, oriented X3 - Psychiatric Psychiatric exam: Present: normal affect, normal mood - Skin Skin exam: Present: warm, dry, intact ED Course Vital Signs 11/28/18 11/28/18 13:45 15:35 Temperature 97.9 F Pulse Rate 92 H Respiratory 18 18 Rate Blood Pressure 180/91 O2 Sat by Pulse 100 Oximetry ED Medical Decision Making - Lab Data Result diagrams: 11/28/18 14:39 11/28/18 14:39 - Medical Decision Making PLAN RECHECK LABS COMPARE TO 48 HOURS AGO UA IVF, ZOFRAN AND TORADOL FOR PAIN PT ANGRY THAT SHE WAS NOT GETTING NARCOTICS AND LEFT AMA - Differential Diagnosis RO ACUTE ABD Critical care attestation.: If time is entered above; I have spent that time in minutes in the direct care of this critically ill patient, excluding procedure time. ED Disposition Clinical Impression: Intractable abdominal pain Disposition: DC-07 LEFT AGAINST MED ADVICE Is pt being admited?: No Does the pt Need Aspirin: No Condition: Undetermined Referrals: CONNOR LORD MD [Primary Care Provider] - 3-5 Days Forms: AMA Form
[2018-11-28] MEDS ORDERED: TORADOL IV ONE (14:58)
[2018-11-28 15:06] LABS: Hematocrit 36.8 % (30.3-42.9); Hemoglobin 12.2 gm/dl (10.1-14.3); Mean Corpuscular HGB Conc 33 % (30-34); Mean Corpuscular Volume 92 fl (79-97); Platelet Count 217 K/mm3 (140-440); Red Blood Count 3.99 M/mm3 (3.65-5.03); Red Cell Distribution Width 13.1 % (13.2-15.2)
[2018-11-28 15:42] LABS: Alanine Aminotransferase 12 units/L (7-56); Albumin 4.2 g/dL (3.9-5); BUN/Creatinine Ratio 14; Blood Urea Nitrogen 10 mg/dL (7-17); Calcium 9.4 mg/dL (8.4-10.2); Hemolysis Index 4
== END 2018-11-28 15:41 | disposition left against medical advice (07) ==
LOC: ED 13:32
DX: R10.9 Unspecified abdominal pain (principal); I11.0 Hypertensive heart disease with heart failure; I50.9 Heart failure, unspecified; I43 Cardiomyopathy in diseases classified elsewhere; E11.9 Type 2 diabetes mellitus without complications; K21.9 Gastro-esophageal reflux disease without esophagitis; M19.90 Unspecified osteoarthritis, unspecified site; F41.9 Anxiety disorder, unspecified; M51.35 Other intervertebral disc degeneration, thoracolumbar region; Z79.899 Other long term (current) drug therapy; Z88.8 Allergy status to other drugs, medicaments and biological substances
CPT/HCPCS: 36415; 80053; 83690; 85027; 96374; 96375; 99283; J1885; J2405

== ENCOUNTER 2019-01-10 09:06 | Emergency (ER) | payer MEDICAID ==
[2019-01-10 09:12] VITALS: BP 169/91
[2019-01-10] MEDS ORDERED: TORADOL IM ONE (11:25)
--- NOTE | 2019-01-10 11:33 | Emergency Department Report ---
ED Back Pain/Injury HPI - General Chief Complaint: Back Pain/Injury Stated Complaint: VOMIT/LOWER BACK PAIN Time Seen by Provider: 01/10/19 10:56 Source: patient Limitations: No Limitations - History of Present Illness Initial Comments: This is a 48-year-old female nontoxic, well nourished in appearance, no acute signs of distress presents to the ED with c/o of acute on chronic lower back pain x10 years. Patient stated that she had MRI in 2018 with 2 spinal pinched nerves and degenerative disc disease. Patient states has history of sciatica nerve pain which is similar symptoms as today. Patient states that pain radiates through to his right lower extremity. Patient denies any trauma. Denies any bladder or bowel instability. Patient denies any urinary symptoms. Denies any fever, chills, nausea, vomiting, headache, stiff neck, chest pain or shortness of breath. Patient denies any numbness or tingling. Patient stated allergies to Flexeril. MD Complaint: back pain -: year(s) (10) Similar Symptoms Previously: Yes Radiation: right leg Severity: mild Severity scale (0 -10): 8 Quality: aching Consistency: intermittent Improves With: immobilization Worsens With: movement, walking Context: while lifting, turning/twisting Associated Symptoms: denies other symptoms. denies: confusion, weakness, chest pain, numbness, difficulty walking, cough, difficulty urinating, diaphoresis, incontinence, fever/chills, constipation, headaches, abdominal pain, loss of appetite, malaise, nausea/vomiting, rash, seizure, shortness of breath, syncope - Related Data Home Medications Medication Instructions Recorded Confirmed Last Taken Nortriptyline(Nf) [Pamelor(Nf)] 75 mg PO QHS 11/30/15 07/15/18 05/21/18 ALPRAZolam [Xanax TAB] 1 mg PO TID 03/23/16 07/15/18 05/21/18 Carvedilol [Coreg] 3.125 mg PO BID 05/22/18 07/15/18 05/21/18 HYDROcodone/APAP 10-325 [[place] 1 each PO Q8HR PRN 05/22/18 07/15/18 05/21/18 10-325 mg TAB] Pantoprazole [Protonix TAB] 40 mg PO QDAY 07/07/15/18 05/21/18 Promethazine [Phenergan TAB] 25 mg PO Q6HR PRN 05/22/18 07/15/18 05/21/18 Lisinopril/Hydrochlorothiazide 1 each PO BID 07/15/18 07/15/18 Unknown [Zestoretic 20-12.5 mg] Lispro Insulin [Humalog] 5 unit SQ TIDWM 07/15/18 07/15/18 Unknown metFORMIN [Glucophage] 500 mg PO QDAY 07/15/18 07/15/18 Unknown Previous Rx's Medication Instructions Recorded Last Taken Type Insulin Glargine [Lantus VIAL] 30 unit SUB-Q QHS #3 vial 02/28/18 05/21/18 Rx Famotidine [Pepcid] 10 mg PO BID #60 tablet 07/16/18 Unknown Rx Ciprofloxacin HCl [Ciprofloxacin 500 mg PO Q12HR #14 tab 08/16/18 Unknown Rx TAB] Phenazopyridine [Pyridium] 200 mg PO BID #4 tab 08/16/18 Unknown Rx Lactulose 20 gm PO TID PRN #240 ml 10/21/18 Unknown Rx Phenazopyridine [Pyridium] 200 mg PO BID PRN #10 tab 10/21/18 Unknown Rx Dicyclomine [Bentyl] 20 mg PO QID PRN #20 tablet 11/26/18 Unknown Rx Ondansetron [Zofran Odt] 4 mg PO Q8HR PRN #20 tab.rapdis 11/26/18 Unknown Rx methOCARBAMOL [Robaxin TAB] 500 mg PO BID #14 tab 01/10/19 Unknown Rx Allergies Allergy/AdvReac Type Severity Reaction Status Date / Time cyclobenzaprine HCl Allergy Hives Verified 01/10/19 09:08 [From Flexeril] ED Review of Systems ROS: Stated complaint: VOMIT/LOWER BACK PAIN Other details as noted in HPI Constitutional: denies: chills, fever Eyes: denies: eye pain, eye discharge, vision change ENT: denies: ear pain, throat pain Respiratory: denies: cough, shortness of breath, wheezing Cardiovascular: denies: chest pain, palpitations Endocrine: no symptoms reported Gastrointestinal: denies: abdominal pain, nausea, diarrhea Genitourinary: denies: urgency, dysuria, discharge Musculoskeletal: back pain. denies: joint swelling, arthralgia Skin: denies: rash, lesions Neurological: denies: headache, weakness, paresthesias Psychiatric: denies: anxiety, depression Hematological/Lymphatic: denies: easy bleeding, easy bruising ED Past Medical Hx - Past Medical History Hx Hypertension: Yes Hx CVA: No Hx Heart Attack/AMI: (Cardiomyopathy) Hx Congestive Heart Failure: Yes Hx Diabetes: Yes Hx Deep Vein Thrombosis: No Hx Pulmonary Embolism: No Hx GERD: Yes Hx Liver Disease: Yes (HEPATITIS C-treated) Hx Renal Disease: No Hx Sickle Cell Disease: No Hx Arthritis: Yes Hx Headaches / Migraines: No Hx Seizures: Yes Hx Kidney Stones: No Hx Psychiatric Treatment: Yes (ANXIETY) Hx Asthma: No Hx COPD: No Hx Tuberculosis: No Hx Dementia: No Hx HIV: No Additional medical history: foot spurs,. DDD. mass L breast. Chronic pain. Spinal cyst. Diverticulitis - Surgical History Hx Coronary Stent: No Hx Open Heart Surgery: No Hx Pacemaker: No Hx Internal Defibrillator: No Hx Cholecystectomy: No Hx Appendectomy: No Hx Breast Surgery: No Additional Surgical History: , heart cath. removal of teeth - Social History Smoking Status: Never Smoker Substance Use Type: None - Medications Home Medications: Home Medications Medication Instructions Recorded Confirmed Last Taken Type Nortriptyline(Nf) [Pamelor(Nf)] 75 mg PO QHS 11/30/15 07/15/18 05/21/18 History ALPRAZolam [Xanax TAB] 1 mg PO TID 03/23/16 07/15/18 05/21/18 History Insulin Glargine [Lantus VIAL] 30 unit SUB-Q QHS #3 vial 02/28/18 07/15/18 05/21/18 Rx Carvedilol [Coreg] 3.125 mg PO BID 05/22/18 07/15/18 05/21/18 History HYDROcodone/APAP 10-325 [[place] 1 each PO Q8HR PRN 05/22/18 07/15/18 05/21/18 History 10-325 mg TAB] Pantoprazole [Protonix TAB] 40 mg PO QDAY 05/22/18 07/15/18 05/21/18 History Promethazine [Phenergan TAB] 25 mg PO Q6HR PRN 07/07/15/18 05/21/18 History Lisinopril/Hydrochlorothiazide 1 each PO BID 07/15/18 07/15/18 Unknown History [Zestoretic 20-12.5 mg] Lispro Insulin [Humalog] 5 unit SQ TIDWM 07/15/18 07/15/18 Unknown History metFORMIN [Glucophage] 500 mg PO QDAY 07/15/18 07/15/18 Unknown History Famotidine [Pepcid] 10 mg PO BID #60 tablet 07/16/18 Unknown Rx Ciprofloxacin HCl [Ciprofloxacin 500 mg PO Q12HR #14 tab 08/16/18 Unknown Rx TAB] Phenazopyridine [Pyridium] 200 mg PO BID #4 tab 08/16/18 Unknown Rx Lactulose 20 gm PO TID PRN #240 ml 10/21/18 Unknown Rx Phenazopyridine [Pyridium] 200 mg PO BID PRN #10 tab 10/21/18 Unknown Rx Dicyclomine [Bentyl] 20 mg PO QID PRN #20 tablet 11/26/18 Unknown Rx Ondansetron [Zofran Odt] 4 mg PO Q8HR PRN #20 tab.rapdis 11/26/18 Unknown Rx methOCARBAMOL [Robaxin TAB] 500 mg PO BID #14 tab 01/10/19 Unknown Rx ED Physical Exam - General Limitations: No Limitations General appearance: alert, in no apparent distress - Head Head exam: Present: atraumatic, normocephalic - Eye Eye exam: Present: normal appearance - Neck Neck exam: Present: normal inspection, full ROM - GI/Abdominal GI/Abdominal exam: Present: soft, normal bowel sounds. Absent: distended, guarding, rebound, rigid, diminished bowel sounds - Extremities Exam Extremities exam: Present: normal inspection, full ROM - Back Exam Back exam: Present: normal inspection, full ROM, paraspinal tenderness (lumbar spinal). Absent: tenderness, CVA tenderness (R), CVA tenderness (L), muscle spasm, vertebral tenderness, rash noted - Expanded Back Exam Expanded Back exam: Absent: saddle anesthesia Back exam: Negative Straight Leg Raising: Left, Right - Neurological Exam Neurological exam: Present: alert, oriented X3 - Psychiatric Psychiatric exam: Present: normal affect, normal mood - Skin Skin exam: Present: warm, dry, intact, normal color. Absent: rash ED Course Vital Signs 03/10/19 09:08 Temperature 97.6 F Pulse Rate 85 Respiratory 18 Rate Blood Pressure 169/91 [Right] O2 Sat by Pulse 98 Oximetry - Reevaluation(s) Reevaluation #1: 01/10/19 11:35 Patient is speaking in full sentences with no signs of distress noted. ED Medical Decision Making - Medical Decision Making This is a 48-year-old female that presents with chronic lower back pain. Patient is stable was examined by me. There is no spinal tenderness. There is no cauda equina syndrome during examination. No bladder or bowel instability. Patient received Toradol 30 mg IM in the ED which preceded his symptoms has resolved and subsided. Patient is discharged with Robaxin. Patient was instructed not to operate any machinery while taking muscle relaxant as they cause her drowsiness. Patient was referred to Follow-up with a primary care doctor in 3-5 days or if symptoms worsen and continue return to emergency room as soon as possible. At time of discharge, the patient does not seem toxic or ill in appearance. No acute signs of distress noted. Patient agrees to discharge treatment plan of care. No further questions noted by the patient. This chart is dictated with using [employer] Dictation Program Critical care attestation.: If time is entered above; I have spent that time in minutes in the direct care of this critically ill patient, excluding procedure time. ED Disposition Clinical Impression: Chronic lower back pain Qualifiers: Back pain laterality: right Sciatica presence: with sciatica Sciatica laterality: sciatica of right side Qualified Code(s): M54.41 - Lumbago with sciatica, right side; G89.29 - Other chronic pain Disposition: -01 TO HOME OR SELFCARE Is pt being admited?: No Does the pt Need Aspirin: No Condition: Stable Instructions: Chronic Back Pain (ED), Methocarbamol (Injection) Additional Instructions: Follow-up with a primary care doctor in 3-5 days or if symptoms worsen and continue return to emergency room as soon as possible. Prescriptions: methOCARBAMOL [Robaxin TAB] 500 mg PO BID #14 tab Referrals: PRIMARY MD VARGAS [Referring] - 3-5 Days ZEN DELGADO MD [Staff Physician] - 3-5 Days ERCI ANAYA MD [Staff Physician] - 3-5 Days [facility] [Outside] - 3-5 Days Forms: Work/School Release Form(ED)
== END 2019-01-10 12:01 | disposition home or self-care (01) ==
LOC: ED 09:06
DX: M54.41 Lumbago with sciatica, right side (principal); G89.29 Other chronic pain; I11.0 Hypertensive heart disease with heart failure; I50.9 Heart failure, unspecified; I42.9 Cardiomyopathy, unspecified; E11.9 Type 2 diabetes mellitus without complications; K21.9 Gastro-esophageal reflux disease without esophagitis; M19.90 Unspecified osteoarthritis, unspecified site; F41.9 Anxiety disorder, unspecified; Z79.899 Other long term (current) drug therapy; Z88.1 Allergy status to other antibiotic agents
CPT/HCPCS: 96372; 99282; J1885

== ENCOUNTER 2019-02-15 17:28 | Emergency (ER) | payer MEDICAID ==
--- NOTE | 2019-02-15 18:06 | Emergency Department Report ---
ED General Adult HPI - General Chief complaint: Overdose Stated complaint: DIZZINES/ TOOK TOO MUCH MEDICINE Time Seen by Provider: 02/15/19 17:58 Source: patient Mode of arrival: Ambulatory Limitations: No Limitations - History of Present Illness Initial comments: Patient is 49 years old female with history of diabetes and GERD. Patient presents to the ER stating that she took 30 units of Humalog instead of 5 units mistaking it for Lantus. Patient stated that she feel fuzzy but no weakness or loss of consciousness. Patient denied any other symptoms. Patient denied any suicidal attempt. Severity scale (0 -10): 0 - Related Data Home Medications Medication Instructions Recorded Confirmed Last Taken Nortriptyline(Nf) [Pamelor(Nf)] 75 mg PO QHS 11/30/15 07/15/18 05/21/18 ALPRAZolam [Xanax TAB] 1 mg PO TID 03/23/16 07/15/18 05/21/18 Carvedilol [Coreg] 3.125 mg PO BID 05/22/18 07/15/18 05/21/18 HYDROcodone/APAP 10-325 [[place] 1 each PO Q8HR PRN 05/22/18 07/15/18 05/21/18 10-325 mg TAB] Pantoprazole [Protonix TAB] 40 mg PO QDAY 05/22/18 07/15/18 05/21/18 Promethazine [Phenergan TAB] 25 mg PO Q6HR PRN 05/22/18 07/15/18 05/21/18 Lisinopril/Hydrochlorothiazide 1 each PO BID 07/15/18 07/15/18 Unknown [Zestoretic 20-12.5 mg] Lispro Insulin [Humalog] 5 unit SQ TIDWM 07/15/18 07/15/18 Unknown metFORMIN [Glucophage] 500 mg PO QDAY 07/15/18 07/15/18 Unknown Previous Rx's Medication Instructions Recorded Last Taken Type Insulin Glargine [Lantus VIAL] 30 unit SUB-Q QHS #3 vial 02/28/18 05/21/18 Rx Famotidine [Pepcid] 10 mg PO BID #60 tablet 07/16/18 Unknown Rx Ciprofloxacin HCl [Ciprofloxacin 500 mg PO Q12HR #14 tab 08/16/18 Unknown Rx TAB] Phenazopyridine [Pyridium] 200 mg PO BID #4 tab 08/16/18 Unknown Rx Lactulose 20 gm PO TID PRN #240 ml 10/21/18 Unknown Rx Phenazopyridine [Pyridium] 200 mg PO BID PRN #10 tab 10/21/18 Unknown Rx Dicyclomine [Bentyl] 20 mg PO QID PRN #20 tablet 11/26/18 Unknown Rx Ondansetron [Zofran Odt] 4 mg PO Q8HR PRN #20 tab.rapdis 11/26/18 Unknown Rx methOCARBAMOL [Robaxin TAB] 500 mg PO BID #14 tab 01/10/19 Unknown Rx Allergies Allergy/AdvReac Type Severity Reaction Status Date / Time cyclobenzaprine HCl Allergy Hives Verified 02/15/19 17:42 [From Flexeril] ED Review of Systems ROS: Stated complaint: DIZZINES/ TOOK TOO MUCH MEDICINE Other details as noted in HPI Comment: All other systems reviewed and negative Constitutional: denies: chills, fever Cardiovascular: denies: chest pain Gastrointestinal: denies: abdominal pain, nausea, diarrhea, constipation, hematemesis Neurological: denies: headache, weakness, numbness, paresthesias, confusion ED Past Medical Hx - Past Medical History Hx Hypertension: Yes Hx CVA: No Hx Heart Attack/AMI: (Cardiomyopathy) Hx Congestive Heart Failure: Yes Hx Diabetes: Yes Hx Deep Vein Thrombosis: No Hx Pulmonary Embolism: No Hx GERD: Yes Hx Liver Disease: Yes (HEPATITIS C-treated) Hx Renal Disease: No Hx Sickle Cell Disease: No Hx Arthritis: Yes Hx Headaches / Migraines: No Hx Seizures: Yes Hx Kidney Stones: No Hx Psychiatric Treatment: Yes (ANXIETY) Hx Asthma: No Hx COPD: No Hx Tuberculosis: No Hx Dementia: No Hx HIV: No Additional medical history: foot spurs,. DDD. mass L breast. Chronic pain. Spinal cyst. Diverticulitis - Surgical History Hx Coronary Stent: No Hx Open Heart Surgery: No Hx Pacemaker: No Hx Internal Defibrillator: No Hx Cholecystectomy: No Hx Appendectomy: No Hx Breast Surgery: No Additional Surgical History: , heart cath. removal of teeth - Social History Smoking Status: Current Every Day Smoker Substance Use Type: Other - Medications Home Medications: Home Medications Medication Instructions Recorded Confirmed Last Taken Type Nortriptyline(Nf) [Pamelor(Nf)] 75 mg PO QHS 11/30/15 07/15/18 05/21/18 History ALPRAZolam [Xanax TAB] 1 mg PO TID 03/23/16 07/15/18 05/21/18 History Insulin Glargine [Lantus VIAL] 30 unit SUB-Q QHS #3 vial 02/28/18 07/15/18 05/21/18 Rx Carvedilol [Coreg] 3.125 mg PO BID 05/22/18 07/15/18 05/21/18 History HYDROcodone/APAP 10-325 [[place] 1 each PO Q8HR PRN 05/22/18 07/15/18 05/21/18 History 10-325 mg TAB] Pantoprazole [Protonix TAB] 40 mg PO QDAY 05/22/18 07/15/18 05/21/18 History Promethazine [Phenergan TAB] 25 mg PO Q6HR PRN 05/22/18 07/15/18 05/21/18 History Lisinopril/Hydrochlorothiazide 1 each PO BID 07/15/18 07/15/18 Unknown History [Zestoretic 20-12.5 mg] Lispro Insulin [Humalog] 5 unit SQ TIDWM 07/15/18 07/15/18 Unknown History metFORMIN [Glucophage] 500 mg PO QDAY 07/15/18 07/15/18 Unknown History Famotidine [Pepcid] 10 mg PO BID #60 tablet 07/16/18 Unknown Rx Ciprofloxacin HCl [Ciprofloxacin 500 mg PO Q12HR #14 tab 08/16/18 Unknown Rx TAB] Phenazopyridine [Pyridium] 200 mg PO BID #4 tab 08/16/18 Unknown Rx Lactulose 20 gm PO TID PRN #240 ml 10/21/18 Unknown Rx Phenazopyridine [Pyridium] 200 mg PO BID PRN #10 tab 10/21/18 Unknown Rx Dicyclomine [Bentyl] 20 mg PO QID PRN #20 tablet 11/26/18 Unknown Rx Ondansetron [Zofran Odt] 4 mg PO Q8HR PRN #20 tab.rapdis 11/26/18 Unknown Rx methOCARBAMOL [Robaxin TAB] 500 mg PO BID #14 tab 01/10/19 Unknown Rx ED Physical Exam - General Limitations: No Limitations General appearance: alert, in no apparent distress - Head Head exam: Present: atraumatic, normocephalic, normal inspection - Eye Eye exam: Present: normal appearance, PERRL - ENT ENT exam: Present: normal exam, normal orophraynx, mucous membranes moist - Neck Neck exam: Present: normal inspection, full ROM. Absent: tenderness, meningismus, lymphadenopathy, thyromegaly - Respiratory Respiratory exam: Present: normal lung sounds bilaterally - Cardiovascular Cardiovascular Exam: Present: regular rate, normal rhythm, normal heart sounds - GI/Abdominal GI/Abdominal exam: Present: soft, normal bowel sounds. Absent: distended, tenderness, guarding, rebound, rigid - Extremities Exam Extremities exam: Present: normal inspection, full ROM, normal capillary refill - Back Exam Back exam: Present: normal inspection, full ROM - Neurological Exam Neurological exam: Present: alert, oriented X3, CN II-XII intact, normal gait - Skin Skin exam: Present: warm, intact, normal color ED Course Vital Signs 02/15/19 02/15/19 17:40 19:51 Temperature 97.9 F 98.1 F Pulse Rate 96 H 88 Respiratory 18 18 Rate Blood Pressure 118/72 Blood Pressure 101/54 [Right] O2 Sat by Pulse 96 96 Oximetry ED Medical Decision Making - Lab Data Result diagrams: 02/15/19 18:21 02/15/19 18:21 - Medical Decision Making Patient is 49 years old female with history of diabetes and GERD. Patient presents to the ER stating that she took 30 units of Humalog instead of 5 units mistaking it for Lantus. Patient stated that she feel fuzzy but no weakness or loss of consciousness. Patient denied any other symptoms. Patient denied any suicidal attempt. Patient observed in the emergency room for more than 8 hours since the injection. Patient remained stable with no evidence of hypoglycemia. Patient had a serial blood glucose monitoring. Patient advised to follow-up with her primary care physician in the next 2-3 days and to return to the ER if symptoms return. Patient discharged home in a stable clinical condition. Critical Care Time: Yes Critical care time in (mins) excluding proc time.: 30 Critical care attestation.: If time is entered above; I have spent that time in minutes in the direct care of this critically ill patient, excluding procedure time. ED Disposition Clinical Impression: Hypoglycemia Disposition: DC-01 TO HOME OR SELFCARE Is pt being admited?: No Condition: Stable Instructions: Diabetic Hypoglycemia (ED) Referrals: PRIMARY CARE, [Primary Care Provider] - 3-5 Days
[2019-02-15 18:38] LABS: Basophils # (Auto) 0.1 K/mm3 (0.0-0.1); Basophils % (Auto) 1.2 % (0.0-1.8); Eosinophils # (Auto) 0.2 K/mm3 (0.0-0.4); Eosinophils % (Auto) 3.4 % (0.0-4.3); Hematocrit 34.3 % (30.3-42.9); Hemoglobin 11.9 gm/dl (10.1-14.3); Lymphocytes # (Auto) 2.5 K/mm3 (1.2-5.4); Lymphocytes % (Auto) 36.5 % (13.4-35.0); Mean Corpuscular HGB Conc 35 % (30-34); Mean Corpuscular Volume 92 fl (79-97); Monocytes # (Auto) 0.4 K/mm3 (0.0-0.8); Monocytes % (Auto) 6.6 % (0.0-7.3); Platelet Count 210 K/mm3 (140-440); Red Blood Count 3.72 M/mm3 (3.65-5.03); Red Cell Distribution Width 13.3 % (13.2-15.2)
[2019-02-15 18:53] LABS: BUN/Creatinine Ratio 20; Blood Urea Nitrogen 12 mg/dL (7-17); Calcium 9.2 mg/dL (8.4-10.2); Hemolysis Index 11
[2019-02-15] MEDS ORDERED: D5W 1,000 ML IV SCH (19:00)
[2019-02-15] MEDS ORDERED: TYLENOL ONE (19:21)
[2019-02-15] MEDS ORDERED: TYLENOL PO ONE (19:32)
[2019-02-15] MEDS ORDERED: NORCO 10/325 PO ONE (20:17)
[2019-02-16 19:27] VITALS: BP 132/65
== END 2019-02-16 00:05 | disposition home or self-care (01) ==
LOC: ED 17:28
DX: E11.649 Type 2 diabetes mellitus with hypoglycemia without coma (principal); K21.9 Gastro-esophageal reflux disease without esophagitis; I42.9 Cardiomyopathy, unspecified; I11.0 Hypertensive heart disease with heart failure; M19.90 Unspecified osteoarthritis, unspecified site; F17.200 Nicotine dependence, unspecified, uncomplicated; Z79.4 Long term (current) use of insulin; Z88.8 Allergy status to other drugs, medicaments and biological substances; Z98.890 Other specified postprocedural states
CPT/HCPCS: 36415; 80048; 82962; 85025; 96365; 96366; 99283; J7070

== ENCOUNTER 2019-04-22 09:29 | Outpatient (CLI) | payer MEDICAID ==
[2019-04-22 10:15] LABS: Blood Urea Nitrogen 11 mg/dL (7-17)
--- NOTE | 2019-04-22 13:49 | Magnetic Resonance Report ---
MRI BRAIN WITH/WITHOUT CONTRAST: History: Hyperprolactinemia. Technique: Multiple T1 and T2 weighted images were obtained in multiple planes. Axial diffusion and gradient imaging was performed. Post contrast T1 images in two planes were obtained following IV gadolinium. Findings: The brain parenchyma signal intensity and its velazquez-white interface are normal on all sequences. No abnormal parenchymal signal. No diffusion restriction, hemorrhage, mass effect or extra-axial fluid collection. Ventricular size is normal and symmetric. The basal cisterns are clear. The brainstem and cerebellar hemispheres are within normal limits. The fourth ventricle is midline. Thin collimation images through the sella turcica demonstrate no abnormality. No pituitary adenoma is identified. The paranasal sinuses and mastoid air cells are well aerated. Normal flow voids are identified in the appropriate vessels at the [place]. No abnormal enhancement is identified following IV gadolinium. Impression: Unremarkable MRI brain with and without contrast. No pituitary abnormality is detected on MR.
== END 2019-04-22 09:30 | disposition home or self-care (01) ==
LOC: MRI 09:29
PROVIDERS: ATTEND Specialist
DX: E22.1 Hyperprolactinemia (principal); E23.7 Disorder of pituitary gland, unspecified; I11.0 Hypertensive heart disease with heart failure; I50.9 Heart failure, unspecified; K21.9 Gastro-esophageal reflux disease without esophagitis; Z90.710 Acquired absence of both cervix and uterus
CPT/HCPCS: 36415; 70553; 82565; 84520; A9577

== ENCOUNTER 2019-05-04 15:20 | Emergency (ER) | payer MEDICAID | END 2019-05-04 15:45 | disposition left against medical advice (07) | LOC: ED 15:20 | DX: M79.671 Pain in right foot (principal); M79.672 Pain in left foot; Z53.21 Procedure and treatment not carried out due to patient leaving prior to being seen by health care provider ==

== ENCOUNTER 2019-05-11 04:11 | Emergency (ER) | payer MEDICAID ==
[2019-05-11] MEDS ORDERED: TORADOL IM ONE (06:45)
--- NOTE | 2019-05-11 06:50 | Emergency Department Report ---
ED General Adult HPI - General Chief complaint: Urogenital-Female Stated complaint: PAIN IN GROIN AREA X 1WEEK Time Seen by Provider: 05/11/19 06:19 Source: patient Mode of arrival: Wheelchair Limitations: No Limitations - History of Present Illness Initial comments: This is a 49-year-old female who takes Lortab 10 4 times a day and has been in chronic pain management for 10 years. She states that her principal problem resulting in opioid dependency is groin pain which is bilateral the same as her presentation today. She has had this problem for many years. She thinks she "really injured herself" 2 weeks ago. She claims she has never been to the emergency department for this problem per se. However she has been to this facility doesn't smoke times for various other pain complaints. She denies anything new about her presentation today other than that it "hurt worse". -: Gradual, week(s) (2) Location: lower extremity (essentially inguinal ligament area bilaterally) Radiation: non-radiation Quality: aching Consistency: constant Worsens with: movement Associated Symptoms: denies other symptoms, other (thinks she had a fever on Friday but it was not measured) Treatments Prior to Arrival: none - Related Data Home Medications Medication Instructions Recorded Confirmed Last Taken Nortriptyline(Nf) [Pamelor(Nf)] 75 mg PO QHS 11/30/15 07/15/18 05/21/18 ALPRAZolam [Xanax TAB] 1 mg PO TID 03/23/16 07/15/18 05/21/18 Carvedilol [Coreg] 3.125 mg PO BID 05/22/18 07/15/18 05/21/18 HYDROcodone/APAP 10-325 [[place] 1 each PO Q8HR PRN 05/22/18 07/15/18 05/21/18 10-325 mg TAB] Pantoprazole [Protonix TAB] 40 mg PO QDAY 05/22/18 07/15/18 05/21/18 Promethazine [Phenergan] 25 mg PO Q6HR PRN 05/22/18 07/15/18 05/21/18 Lisinopril/Hydrochlorothiazide 1 each PO BID 07/15/18 07/15/18 Unknown [Zestoretic 20-12.5 mg] Lispro Insulin [HumaLOG] 5 unit SQ TIDWM 07/15/18 07/15/18 Unknown metFORMIN [Glucophage] 500 mg PO QDAY 07/15/18 07/15/18 Unknown Previous Rx's Medication Instructions Recorded Last Taken Type Insulin Glargine [Lantus VIAL] 30 unit SUB-Q QHS #3 vial 02/28/18 05/21/18 Rx Famotidine [Pepcid] 10 mg PO BID #60 tablet 07/16/18 Unknown Rx Ciprofloxacin HCl [Ciprofloxacin 500 mg PO Q12HR #14 tab 08/16/18 Unknown Rx TAB] Phenazopyridine [Pyridium] 200 mg PO BID #4 tab 08/16/18 Unknown Rx Lactulose 20 gm PO TID PRN #240 ml 10/21/18 Unknown Rx Phenazopyridine [Pyridium] 200 mg PO BID PRN #10 tab 10/21/18 Unknown Rx Dicyclomine [Bentyl] 20 mg PO QID PRN #20 tablet 11/26/18 Unknown Rx Ondansetron [Zofran Odt] 4 mg PO Q8HR PRN #20 tab.rapdis 11/26/18 Unknown Rx methOCARBAMOL [Robaxin TAB] 500 mg PO BID #14 tab 01/10/19 Unknown Rx Allergies Allergy/AdvReac Type Severity Reaction Status Date / Time cyclobenzaprine HCl Allergy Hives Verified 02/15/19 17:42 [From Flexeril] ED Review of Systems ROS: Stated complaint: PAIN IN GROIN AREA X 1WEEK Other details as noted in HPI Constitutional: fever (subjective). denies: chills Eyes: denies: eye pain, eye discharge, vision change ENT: denies: ear pain, throat pain Respiratory: denies: cough, shortness of breath, wheezing Cardiovascular: denies: chest pain, palpitations Endocrine: no symptoms reported Gastrointestinal: denies: abdominal pain, nausea, diarrhea Genitourinary: denies: urgency, dysuria, discharge Musculoskeletal: as per HPI. denies: back pain, joint swelling, arthralgia Skin: denies: rash, lesions Neurological: denies: headache, weakness, paresthesias Psychiatric: denies: anxiety, depression Hematological/Lymphatic: denies: easy bleeding, easy bruising ED Past Medical Hx - Past Medical History Previous Medical History?: Yes Hx Hypertension: Yes Hx CVA: No Hx Heart Attack/AMI: Yes (Cardiomyopathy) Hx Congestive Heart Failure: Yes Hx Diabetes: Yes Hx Deep Vein Thrombosis: No Hx Pulmonary Embolism: No Hx GERD: Yes Hx Liver Disease: Yes (HEPATITIS C-treated) Hx Renal Disease: No Hx Sickle Cell Disease: No Hx Arthritis: Yes Hx Headaches / Migraines: No Hx Seizures: Yes Hx Kidney Stones: No Hx Psychiatric Treatment: Yes (ANXIETY) Hx Asthma: No Hx COPD: No Hx Tuberculosis: No Hx Dementia: No Hx HIV: No Additional medical history: foot spurs,. DDD. mass L breast. Chronic pain. Spinal cyst. No history of DVT. Diverticulitis - Surgical History Past Surgical History?: Yes Hx Coronary Stent: No Hx Open Heart Surgery: No Hx Pacemaker: No Hx Internal Defibrillator: No Hx Cholecystectomy: No Hx Appendectomy: No Hx Breast Surgery: No Additional Surgical History: , heart cath. removal of teeth - Social History Smoking Status: Former Smoker Substance Use Type: None - Medications Home Medications: Home Medications Medication Instructions Recorded Confirmed Last Taken Type Nortriptyline(Nf) [Pamelor(Nf)] 75 mg PO QHS 11/30/15 07/15/18 05/21/18 History ALPRAZolam [Xanax TAB] 1 mg PO TID 03/23/16 07/15/18 05/21/18 History Insulin Glargine [Lantus VIAL] 30 unit SUB-Q QHS #3 vial 02/28/18 07/15/18 05/21/18 Rx Carvedilol [Coreg] 3.125 mg PO BID 05/22/18 07/15/18 05/21/18 History HYDROcodone/APAP 10-325 [[place] 1 each PO Q8HR PRN 05/22/18 07/15/18 05/21/18 History 10-325 mg TAB] Pantoprazole [Protonix TAB] 40 mg PO QDAY 05/22/18 07/15/18 05/21/18 History Promethazine [Phenergan] 25 mg PO Q6HR PRN 05/22/18 07/15/18 05/21/18 History Lisinopril/Hydrochlorothiazide 1 each PO BID 07/15/18 07/15/18 Unknown History [Zestoretic 20-12.5 mg] Lispro Insulin [HumaLOG] 5 unit SQ TIDWM 07/15/18 07/15/18 Unknown History metFORMIN [Glucophage] 500 mg PO QDAY 07/15/18 07/15/18 Unknown History Famotidine [Pepcid] 10 mg PO BID #60 tablet 07/16/18 Unknown Rx Ciprofloxacin HCl [Ciprofloxacin 500 mg PO Q12HR #14 tab 08/16/18 Unknown Rx TAB] Phenazopyridine [Pyridium] 200 mg PO BID #4 tab 08/16/18 Unknown Rx Lactulose 20 gm PO TID PRN #240 ml 10/21/18 Unknown Rx Phenazopyridine [Pyridium] 200 mg PO BID PRN #10 tab 10/21/18 Unknown Rx Dicyclomine [Bentyl] 20 mg PO QID PRN #20 tablet 11/26/18 Unknown Rx Ondansetron [Zofran Odt] 4 mg PO Q8HR PRN #20 tab.rapdis 11/26/18 Unknown Rx methOCARBAMOL [Robaxin TAB] 500 mg PO BID #14 tab 01/10/19 Unknown Rx ED Physical Exam - General Limitations: No Limitations General appearance: alert, in no apparent distress - Head Head exam: Present: atraumatic, normocephalic - Eye Eye exam: Present: normal appearance. Absent: scleral icterus - ENT ENT exam: Present: mucous membranes moist - Neck Neck exam: Present: normal inspection. Absent: tenderness, meningismus - Respiratory Respiratory exam: Present: normal lung sounds bilaterally. Absent: respiratory distress - Cardiovascular Cardiovascular Exam: Present: regular rate, normal rhythm. Absent: systolic murmur, diastolic murmur, rubs, gallop - GI/Abdominal GI/Abdominal exam: Present: soft, tenderness (some tenderness over the inguinal ligament bilaterally. There is no swelling. There is no adenopathy. There is no hernia. Rest of the abdominal exam is negative), normal bowel sounds. Absent: distended, guarding, rebound, rigid, organomegaly, mass, bruit, pulsatile mass, hernia - Extremities Exam Extremities exam: Present: normal inspection - Back Exam Back exam: Present: normal inspection - Neurological Exam Neurological exam: Present: alert, oriented X3, CN II-XII intact. Absent: motor sensory deficit - Psychiatric Psychiatric exam: Present: normal affect, normal mood - Skin Skin exam: Present: warm, dry, intact, normal color, other (callus heel left foot no evidence of diabetic foot infection. Ingrown toenails but not infected great toes). Absent: rash ED Course Vital Signs 05/11/19 05/11/19 05/11/19 04:12 04:20 05:35 Temperature 97.6 F 97.6 F Pulse Rate 97 H 96 H Respiratory 18 18 Rate Blood Pressure 149/93 149/93 Blood Pressure [Right] O2 Sat by Pulse 92 92 96 Oximetry 05/11/19 05/11/19 05/11/19 05:36 05:38 05:42 Temperature Pulse Rate Respiratory Rate Blood Pressure 120/77 120/77 120/77 Blood Pressure [Right] O2 Sat by Pulse 96 96 97 Oximetry 05/11/19 05/11/19 05/11/19 05:44 05:45 06:00 Temperature Pulse Rate Respiratory 18 Rate Blood Pressure 120/77 113/66 Blood Pressure [Right] O2 Sat by Pulse 96 97 96 Oximetry 05/11/19 05/11/19 06:30 08:08 Temperature Pulse Rate 87 Respiratory 18 Rate Blood Pressure 120/68 Blood Pressure 115/69 [Right] O2 Sat by Pulse 100 99 Oximetry - Reevaluation(s) Reevaluation #1: By history there appears to be nothing particularly acute here. We will check basic screening tests since the patient is an insulin-dependent diabetic. 05/11/19 06:51 Reevaluation #2: The patient informed the nurse that she wanted to sign out AMA. She has a very low likelihood of a new emergency medical condition. She is mentally top and will sign out. I will check her pending labs. 05/11/19 07:48 ED Medical Decision Making - Lab Data Result diagrams: 05/11/19 07:26 05/11/19 07:19 Laboratory Results - last 24 hr 05/11/19 05/11/19 07:19 07:26 WBC 6.3 RBC 3.81 Hgb 11.7 Hct 34.8 MCV 91 MCH 31 MCHC 34 RDW 13.5 Plt Count 193 Lymph % (Auto) 38.5 H [place] % (Auto) 11.1 H Eos % (Auto) 4.4 H Baso % (Auto) 1.3 Lymph # 2.4 [place] # 0.7 Eos # 0.3 Baso # 0.1 Seg Neutrophils % 44.7 Seg Neutrophils # 2.8 Sodium 136 L Potassium 4.2 Chloride 97.6 L Carbon Dioxide 28 Anion Gap 15 BUN 18 H Creatinine 0.8 Estimated GFR > 60 BUN/Creatinine Ratio 23 Glucose 186 H Calcium 9.3 Critical care attestation.: If time is entered above; I have spent that time in minutes in the direct care of this critically ill patient, excluding procedure time. ED Disposition Clinical Impression: Bilateral groin pain, Chronic pain syndrome, Insulin dependent diabetes mellitus Disposition: DC- LEFT AGAINST MED ADVICE Is pt being admited?: No Does the pt Need Aspirin: No Condition: Stable Instructions: Diabetes Mellitus Type 2 in Adults (ED) Referrals: PRIMARY CARE, [Primary Care Provider] - 3-5 Days Time of Disposition: 08:48
[2019-05-11 07:39] LABS: Basophils # (Auto) 0.1 K/mm3 (0.0-0.1); Basophils % (Auto) 1.3 % (0.0-1.8); Eosinophils # (Auto) 0.3 K/mm3 (0.0-0.4); Eosinophils % (Auto) 4.4 % (0.0-4.3); Hematocrit 34.8 % (30.3-42.9); Hemoglobin 11.7 gm/dl (10.1-14.3); Lymphocytes # (Auto) 2.4 K/mm3 (1.2-5.4); Lymphocytes % (Auto) 38.5 % (13.4-35.0); Mean Corpuscular HGB Conc 34 % (30-34); Mean Corpuscular Volume 91 fl (79-97); Monocytes # (Auto) 0.7 K/mm3 (0.0-0.8); Monocytes % (Auto) 11.1 % (0.0-7.3); Platelet Count 193 K/mm3 (140-440); Red Blood Count 3.81 M/mm3 (3.65-5.03); Red Cell Distribution Width 13.5 % (13.2-15.2)
[2019-05-11 07:59] LABS: BUN/Creatinine Ratio 23; Blood Urea Nitrogen 18 mg/dL (7-17); Calcium 9.3 mg/dL (8.4-10.2); Hemolysis Index 13
[2019-05-11 08:09] VITALS: BP 115/69
== END 2019-05-11 08:12 | disposition left against medical advice (07) ==
LOC: ED 04:11
DX: E11.621 Type 2 diabetes mellitus with foot ulcer (principal); G89.29 Other chronic pain; I42.9 Cardiomyopathy, unspecified; I11.0 Hypertensive heart disease with heart failure; I50.9 Heart failure, unspecified; K21.9 Gastro-esophageal reflux disease without esophagitis; F41.9 Anxiety disorder, unspecified; M19.90 Unspecified osteoarthritis, unspecified site; Z86.19 Personal history of other infectious and parasitic diseases; Z79.4 Long term (current) use of insulin; Z88.8 Allergy status to other drugs, medicaments and biological substances; Z79.84 Long term (current) use of oral hypoglycemic drugs; Z87.891 Personal history of nicotine dependence
CPT/HCPCS: 36415; 80048; 85025; 96372; 99283; J1885

== ENCOUNTER 2019-06-27 18:18 | Inpatient (IN) | payer MEDICAID ==
--- NOTE | 2019-06-27 18:42 | Event Note ---
ED Screening Note Date of service: 06/27/19 Time: 18:41 ED Screening Note: 49 y o female presents to ED cc of left sided stabbing chest pain radiating to back x yesterday. pmh of HTN, DM This initial assessment/diagnostic orders/clinical plan/treatment(s) is/are subject to change based on patients health status, clinical progression and re- assessment by fellow clinical providers in the ED. Further treatment and workup at subsequent clinical providers discretion. Patient/guardian urged not to elope from the ED as their condition may be serious if not clinically assessed and managed. Initial orders include: labs, ekg
[2019-06-27 19:05] LABS: Basophils # (Auto) 0.1 K/mm3 (0.0-0.1); Basophils % (Auto) 0.8 % (0.0-1.8); Eosinophils # (Auto) 0.2 K/mm3 (0.0-0.4); Eosinophils % (Auto) 1.9 % (0.0-4.3); Hematocrit 35.3 % (30.3-42.9); Hemoglobin 12.1 gm/dl (10.1-14.3); Lymphocytes # (Auto) 2.9 K/mm3 (1.2-5.4); Lymphocytes % (Auto) 30.5 % (13.4-35.0); Mean Corpuscular HGB Conc 34 % (30-34); Mean Corpuscular Volume 92 fl (79-97); Monocytes # (Auto) 0.7 K/mm3 (0.0-0.8); Monocytes % (Auto) 7.6 % (0.0-7.3); Platelet Count 223 K/mm3 (140-440); Red Blood Count 3.84 M/mm3 (3.65-5.03); Red Cell Distribution Width 13.7 % (13.2-15.2)
[2019-06-27 19:30] LABS: Alanine Aminotransferase 10 units/L (7-56); Albumin 4.2 g/dL (3.9-5); BUN/Creatinine Ratio 17; Blood Urea Nitrogen 12 mg/dL (7-17); Calcium 9.8 mg/dL (8.4-10.2); Hemolysis Index 4
--- NOTE | 2019-06-27 19:55 | XRay Report ---
CHEST 2 VIEWS INDICATION / CLINICAL INFORMATION: Chest Pain. COMPARISON: 06/14/2018 FINDINGS: SUPPORT DEVICES: None. HEART / MEDIASTINUM: No significant abnormality. LUNGS / PLEURA: No significant pulmonary or pleural abnormality. No pneumothorax. ADDITIONAL FINDINGS: No significant additional findings. IMPRESSION: 1. No acute findings. No interval change. Signer Name: Yani Montes MD Signed: 06/27/2019 7:50 PM Workstation Name: [id number]
[2019-06-27] MEDS ORDERED: BABY ASPIRIN PO ONE (20:36)
[2019-06-27] MEDS ORDERED: MORPHINE IV ONE ×2 (20:36→22:06)
--- NOTE | 2019-06-27 20:47 | Emergency Department Report ---
ED Chest Pain HPI - General Chief Complaint: Chest Pain Stated Complaint: CHEST PAIN/HBS Time Seen by Provider: 06/27/19 18:37 Source: patient Mode of arrival: Ambulatory Limitations: No Limitations - History of Present Illness Initial Comments: 49-year-old female presents to the emergency department from home with complaint of a 2 day history of stabbing midsternal to left-sided chest pain that radiates around towards her back. It is a constant pain without any known aggravating or alleviating factors. It is associated with some shortness of breath and nausea without vomiting. The patient has a past medical history of coronary artery disease, insulin dependent diabetes, GERD, hypertension and some type of cardiomyopathy. She had a stress test done about one year ago on 07/17/18 that was normal at that time. She is currently in pain management for chronic back pains. She took one of her Lortab for her symptoms without any relief. She says that her father had a ID in his late 40s or early 50s. Her blending line attendant is Dr. Vasquez and her primary care physician is Dr. Fagan. The patient also says that her blood sugar was 320 earlier today. No recent travel or sick contacts at home. Severity scale (0 -10): 8 - Related Data Home Medications Medication Instructions Recorded Confirmed Last Taken Nortriptyline(Nf) [Pamelor(Nf)] 75 mg PO QHS 11/30/15 07/15/18 05/21/18 ALPRAZolam [Xanax TAB] 1 mg PO TID 03/23/16 07/15/18 05/21/18 Carvedilol [Coreg] 3.125 mg PO BID 05/22/18 07/15/18 05/21/18 HYDROcodone/APAP 10-325 [[place] 1 each PO Q8HR PRN 05/22/18 07/15/18 05/21/18 10-325 mg TAB] Pantoprazole [Protonix TAB] 40 mg PO QDAY 05/22/18 07/15/18 05/21/18 Promethazine [Phenergan] 25 mg PO Q6HR PRN 05/22/18 07/15/18 05/21/18 Lisinopril/Hydrochlorothiazide 1 each PO BID 07/15/18 07/15/18 Unknown [Zestoretic 20-12.5 mg] Lispro Insulin [HumaLOG] 5 unit SQ TIDWM 07/15/18 07/15/18 Unknown metFORMIN [Glucophage] 500 mg PO QDAY 07/15/18 07/15/18 Unknown Previous Rx's Medication Instructions Recorded Last Taken Type Insulin Glargine [Lantus VIAL] 30 unit SUB-Q QHS #3 vial 02/28/18 05/21/18 Rx Famotidine [Pepcid] 10 mg PO BID #60 tablet 07/16/18 Unknown Rx Ciprofloxacin HCl [Ciprofloxacin 500 mg PO Q12HR #14 tab 08/16/18 Unknown Rx TAB] Phenazopyridine [Pyridium] 200 mg PO BID #4 tab 08/16/18 Unknown Rx Lactulose 20 gm PO TID PRN #240 ml 10/21/18 Unknown Rx Phenazopyridine [Pyridium] 200 mg PO BID PRN #10 tab 10/21/18 Unknown Rx Dicyclomine [Bentyl] 20 mg PO QID PRN #20 tablet 11/26/18 Unknown Rx Ondansetron [Zofran Odt] 4 mg PO Q8HR PRN #20 tab.rapdis 11/26/18 Unknown Rx methOCARBAMOL [Robaxin TAB] 500 mg PO BID #14 tab 01/10/19 Unknown Rx Allergies Allergy/AdvReac Type Severity Reaction Status Date / Time cyclobenzaprine HCl Allergy Hives Verified 02/15/19 17:42 [From Flexeril] Heart Score - HEART Score History: Moderately suspicious EKG: Normal Age: 45-65 Risk factors: > 3 risk factors or hx of atherosclerotic disease Troponin: < normal limit HEART Score: 4 - Critical Actions Critical Actions: 4-6 pts:12-16.6% risk of adverse cardiac event. Should be admitted ED Review of Systems ROS: Stated complaint: CHEST PAIN/HBS Other details as noted in HPI Comment: All other systems reviewed and negative Constitutional: denies: chills, fever Eyes: denies: eye pain, vision change ENT: denies: ear pain, throat pain Respiratory: shortness of breath. denies: cough Cardiovascular: chest pain. denies: palpitations Gastrointestinal: nausea. denies: abdominal pain, vomiting Genitourinary: denies: dysuria, discharge Musculoskeletal: back pain. denies: arthralgia Skin: denies: rash, lesions Neurological: denies: headache, weakness ED Past Medical Hx - Past Medical History Previous Medical History?: Yes Hx Hypertension: Yes Hx CVA: No Hx Heart Attack/AMI: Yes (Cardiomyopathy) Hx Congestive Heart Failure: Yes Hx Diabetes: Yes Hx Deep Vein Thrombosis: No Hx Pulmonary Embolism: No Hx GERD: Yes Hx Liver Disease: Yes (HEPATITIS C-treated) Hx Renal Disease: No Hx Sickle Cell Disease: No Hx Arthritis: Yes Hx Headaches / Migraines: No Hx Seizures: Yes Hx Kidney Stones: No Hx Psychiatric Treatment: Yes (ANXIETY) Hx Asthma: No Hx COPD: No Hx Tuberculosis: No Hx Dementia: No Hx HIV: No Additional medical history: foot spurs,. DDD. mass L breast. Chronic pain. Spinal cyst. No history of DVT. Diverticulitis - Surgical History Past Surgical History?: Yes Hx Coronary Stent: No Hx Open Heart Surgery: No Hx Pacemaker: No Hx Internal Defibrillator: No Hx Cholecystectomy: No Hx Appendectomy: No Hx Breast Surgery: No Additional Surgical History: , heart cath. removal of teeth - Social History Smoking Status: Former Smoker Substance Use Type: None - Medications Home Medications: Home Medications Medication Instructions Recorded Confirmed Last Taken Type Nortriptyline(Nf) [Pamelor(Nf)] 75 mg PO QHS 11/30/15 07/15/18 05/21/18 History ALPRAZolam [Xanax TAB] 1 mg PO TID 03/23/16 07/15/18 05/21/18 History Insulin Glargine [Lantus VIAL] 30 unit SUB-Q QHS #3 vial 02/28/18 07/15/1805/21 Rx Carvedilol [Coreg] 3.125 mg PO BID 05/22/18 07/15/18 05/21/18 History HYDROcodone/APAP 10-325 [[place] 1 each PO Q8HR PRN 05/22/18 07/15/18 05/21/18 History 10-325 mg TAB] Pantoprazole [Protonix TAB] 40 mg PO QDAY 05/22/18 07/15/18 05/21/18 History Promethazine [Phenergan] 25 mg PO Q6HR PRN 05/22/18 07/15/18 05/21/18 History Lisinopril/Hydrochlorothiazide 1 each PO BID 07/15/18 07/15/18 Unknown History [Zestoretic 20-12.5 mg] Lispro Insulin [HumaLOG] 5 unit SQ TIDWM 07/15/18 07/15/18 Unknown History metFORMIN [Glucophage] 500 mg PO QDAY 07/15/18 07/15/18 Unknown History Famotidine [Pepcid] 10 mg PO BID #60 tablet 07/16/18 Unknown Rx Ciprofloxacin HCl [Ciprofloxacin 500 mg PO Q12HR #14 tab 08/16/18 Unknown Rx TAB] Phenazopyridine [Pyridium] 200 mg PO BID #4 tab 08/16/18 Unknown Rx Lactulose 20 gm PO TID PRN #240 ml 10/21/18 Unknown Rx Phenazopyridine [Pyridium] 200 mg PO BID PRN #10 tab 10/21/18 Unknown Rx Dicyclomine [Bentyl] 20 mg PO QID PRN #20 tablet 11/26/18 Unknown Rx Ondansetron [Zofran Odt] 4 mg PO Q8HR PRN #20 tab.rapdis 11/26/18 Unknown Rx methOCARBAMOL [Robaxin TAB] 500 mg PO BID #14 tab 01/10/19 Unknown Rx ED Physical Exam - General Limitations: No Limitations - Other Other exam information: GENERAL: The patient is well-developed well-nourished. HENT: Normocephalic. Atraumatic. Patient has moist mucous membranes. EYES: Extraocular motions are intact. NECK: Supple. Trachea is midline. CHEST/LUNGS: Clear to auscultation. There is no respiratory distress noted. Chest pain is not reproducible to palpation of the chest wall. HEART/CARDIOVASCULAR: Regular. There is no tachycardia. There is no murmur. ABDOMEN: Abdomen is soft, nontender. Patient has normal bowel sounds. There is no abdominal distention. SKIN: Skin is warm and dry. NEURO: The patient is awake, alert, and oriented. The patient is cooperative. The patient has no focal neurologic deficits. Normal speech. MUSCULOSKELETAL: There is no tenderness or deformity. There is no evidence of acute injury. BACK: No midline thoracic or lumbar tenderness to palpation, step-off or deformity. ED Course Vital Signs 06/27/19 06/27/19 06/27/19 18:41 20:03 22:29 Temperature 98.2 F Pulse Rate 85 84 78 Respiratory 18 16 Rate Blood Pressure 174/100 190/111 Blood Pressure 155/91 [Left] O2 Sat by Pulse 99 100 Oximetry ELIJAH score - Elijah Score Age > 65: (0) No Aspirin use within the Past 7 Days: (0) No 3 or more CAD Risk Factors: (1) Yes 2 or more Angina events in past 24 hrs: (0) No Known CAD with more than 50% Stenosis: (0) No Elevated Cardiac Markers: (0) No ST Deviation Greater than 0.5mm: (0) No ELIJAH Score: 1 ED Medical Decision Making - Lab Data Result diagrams: 06/27/19 18:50 06/27/19 18:50 - EKG Data -: EKG Interpreted by Me EKG shows normal: sinus rhythm, axis, intervals, QRS complexes, ST-T waves Rate: normal - EKG Data When compared to previous EKG there are: no significant change Interpretation: normal EKG, unchanged when compared t (07/16/18) - Radiology Data Radiology results: report reviewed, image reviewed interpreted by me: Chest x-ray does not show any acute process. There are no pleural effusions, obvious pneumonia and there is no pneumothorax. CTA CHEST WITH IV CONTRAST INDICATION: Chest pain. Elevated d-dimer. TECHNIQUE: Axial CT images were obtained through the chest after injection of 100 mL Omnipaque 350 IV contrast. 3 plane MIP reconstructions were produced. All CT scans at this location are performed using CT dose reduction for ALARA by means of automated exposure control. COMPARISON: 2 views of the chest from earlier today. FINDINGS: PULMONARY ARTERIES: Well-opacified without suspicious filling defects concerning for thromboemboli. AORTA AND ARTERIES: The aorta and great vessels are patent and normal in caliber without significant atherosclerosis. No dissection. MEDIASTINUM: No mass, lymphadenopathy or other significant abnormality. The heart is normal in size without a pericardial effusion. The trachea and main bronchi are patent and normal in caliber. LUNGS: No suspicious consolidation, nodule or mass. No pneumothorax or pleural effusion. ADDITIONAL FINDINGS: None. UPPER ABDOMEN: No acute findings. BONES: No acute abnormality. There are degenerative changes of the shoulders and spine. IMPRESSION: No CT evidence of a pulmonary artery thromboembolism or other acute abnormality of the chest. - Medical Decision Making Patient presents with a 2 day history of some left-sided chest pain with radiation around towards the back. She does have some personal and family history of cardiac disease and is a 4 on the heart score. EKG does not show any signs of ST elevation ID. So far, the patient's labs have been mostly unr emarkable except for a slightly elevated and equivocal d-dimer. For this reason, a CT angiography of the chest was done that does not show any signs of any pulmonary embolism, dissection, aneurysm, or any other acute process. She was given an aspirin and 2 doses of pain medication without much improvement. The patient was also given a dose of labetalol for her elevated blood pressure and does have some hypertensive urgency. It is been about one year since the patient had a stress test. For all these reasons, the patient will be admitted to the hospital for further evaluation and treatment and was accepted for admission by the hospitalist, Dr Danielle. - Differential Diagnosis ID, PE, Costochondritis, Pneumonia Critical Care Time: No Critical care attestation.: If time is entered above; I have spent that time in minutes in the direct care of this critically ill patient, excluding procedure time. ED Disposition Clinical Impression: Hypertensive urgency, Acute chest pain Disposition: OP ADMIT IP TO THIS HOSP Is pt being admited?: Yes Condition: Serious Instructions: Chest Pain (ED) Referrals: PATTY FULTON MD [Primary Care Provider] - 3-5 Days Time of Disposition: 22:33
--- NOTE | 2019-06-27 22:17 | Cat Scan Report ---
CTA CHEST WITH IV CONTRAST INDICATION: Chest pain. Elevated d-dimer. TECHNIQUE: Axial CT images were obtained through the chest after injection of 100 mL Omnipaque 350 IV contrast. 3 plane MIP reconstructions were produced. All CT scans at this location are performed using CT dose reduction for ALARA by means of automated exposure control. COMPARISON: 2 views of the chest from earlier today. FINDINGS: PULMONARY ARTERIES: Well-opacified without suspicious filling defects concerning for thromboemboli. AORTA AND ARTERIES: The aorta and great vessels are patent and normal in caliber without significant atherosclerosis. No dissection. MEDIASTINUM: No mass, lymphadenopathy or other significant abnormality. The heart is normal in size w ithout a pericardial effusion. The trachea and main bronchi are patent and normal in caliber. LUNGS: No suspicious consolidation, nodule or mass. No pneumothorax or pleural effusion. ADDITIONAL FINDINGS: None. UPPER ABDOMEN: No acute findings. BONES: No acute abnormality. There are degenerative changes of the shoulders and spine. IMPRESSION: No CT evidence of a pulmonary artery thromboembolism or other acute abnormality of the chest. Signer Name: Lavell Hernandez MD Signed: 06/27/2019 10:13 PM Workstation Name: [id number]
[2019-06-27] MEDS ORDERED: NORMODYNE IV ONE (22:21)
[2019-06-27] MEDS ORDERED: APRESOLINE IV PRN (22:32)
--- NOTE | 2019-06-27 22:34 | History and Physical Report ---
History of Present Illness Date of examination: 06/27/19 History of present illness: 49-year-old woman with a history of coronary artery disease, hypertension, dilated cardiomyopathy, chronic pain, anxiety, hypertension, neuropathy, custody emergency room with complaints of chest pain in the epigastric area radiating to the left substernal and back sharp, constant, intensity 5/10, no radiation, she cannot identify exacerbating or relieving factor. She had a stress test a year ago which was negative. Denies nausea vomiting, shortness breath, diaphoresis, + palpitation eview Of Systems: Constitutional: no weight loss, fever, chills Ears, eyes, nose, mouth and throat: no nasal congestion, no nasal discharge, no sinus pressure, blurry vision, diplopia Neck: No neck pain or rigidity. Cardiovascular: No palpitations Respiratory: No shortness of breath, cough Gastrointestinal: No hematochezia, abdominal pain Genitourinary : no dysuria, frequency , hematuria Musculoskeletal: no muscle ache , joint pain Integumentary: no rash, no pruritis Neurological: no parathesias, focal weakness Endocrine: no cold or heat intolerance, no polyuria or polydipsia Hematologic/Lymphatic: no easy bruising, no easy bleeding, no gland swelling Allergic/Immunologic: no urticaria, no angioedema. PAST SURGICAL HISTORY: SOCIAL HISTORY: Denies alcohol, tobacco, drugs FAMILY HISTORY: Hypertension, CVA Medications and Allergies Allergies Allergy/AdvReac Type Severity Reaction Status Date / Time cyclobenzaprine HCl Allergy Hives Verified 02/15/19 17:42 [From [facility]] Home Medications Medication Instructions Recorded Confirmed Last Taken Type Nortriptyline(Nf) [Pamelor(Nf)] 75 mg PO QHS 11/30/15 07/15/18 05/21/18 History ALPRAZolam [Xanax TAB] 1 mg PO TID 03/23/16 07/15/18 05/21/18 History Insulin Glargine [Lantus VIAL] 30 unit SUB-Q QHS #3 vial 02/28/18 07/15/18 05/21/18 Rx Carvedilol [Coreg] 3.125 mg PO BID 05/22/18 07/15/18 05/21/18 History HYDROcodone/APAP 10-325 [[place] 1 each PO Q8HR PRN 05/22/18 07/15/18 05/21/18 History 10-325 mg TAB] Pantoprazole [Protonix TAB] 40 mg PO QDAY 05/22/18 07/15/18 05/21/18 History Promethazine [Phenergan] 25 mg PO Q6HR PRN 05/22/18 07/15/18 05/21/18 History Lisinopril/Hydrochlorothiazide 1 each PO BID 07/15/18 07/15/18 Unknown History [Zestoretic 20-12.5 mg] Lispro Insulin [HumaLOG] 5 unit SQ TIDWM 07/15/18 07/15/18 Unknown History metFORMIN [Glucophage] 500 mg PO QDAY 07/15/18 07/15/18 Unknown History Famotidine [Pepcid] 10 mg PO BID #60 tablet 07/16/18 Unknown Rx Ciprofloxacin HCl [Ciprofloxacin 500 mg PO Q12HR #14 tab 08/16/18 Unknown Rx TAB] Phenazopyridine [Pyridium] 200 mg PO BID #4 tab 08/16/18 Unknown Rx Lactulose 20 gm PO TID PRN #240 ml 10/21/18 Unknown Rx Phenazopyridine [Pyridium] 200 mg PO BID PRN #10 tab 10/21/18 Unknown Rx Dicyclomine [Bentyl] 20 mg PO QID PRN #20 tablet 11/26/18 Unknown Rx Ondansetron [Zofran Odt] 4 mg PO Q8HR PRN #20 tab.rapdis 11/26/18 Unknown Rx methOCARBAMOL [Robaxin TAB] 500 mg PO BID #14 tab 01/10/19 Unknown Rx Active Meds: Active Medications Enoxaparin Sodium (Lovenox) 30 mg SUB-Q QDAY ALLIE Hydralazine HCl (Apresoline) 5 mg IV Q6H PRN PRN Reason: Hypertension Morphine Sulfate (Morphine) 2 mg IV Q4H PRN PRN Reason: Pain, Moderate (4-6) Exam - Physical Exam Narrative exam: Gen. appearance: Patient lying in bed, no apparent distress HEENT: Normocephalic, atraumatic, pupils equally round and reactive to light, extraocular movement intact, and no sclericterus,. No JVD or thyromegaly or nodule,neck supple, no carotid bruit ,mucous membranes moist, no exudate or erythema Heart: S1, S2, regular rate and rhythm Lungs: Clear to auscultation bilaterally, breathing comfortable Abdomen: Positive bowel sounds, nontender, nondistended, no organomegaly Extremity: No edema, cyanosis, clubbing Skin: No rash, nodules, warm, dry Neuro: Oriented 3, cranial nerves II-12 intact, speech is fluent, motor and sensory intact - Constitutional Vitals: Temp Pulse Resp BP Pulse Ox 98.2 F 78 20 190/111 100 06/27/19 18:41 06/27/19 22:29 06/27/19 20:03 06/27/19 22:29 06/27/19 20:03 Results - Labs CBC & Chem 7: 06/27/19 18:50 06/27/19 18:50 Labs: Abnormal lab results 06/27/19 06/27/19 06/27/19 Range/Units 18:50 18:50 20:39 [place] % (Auto) 7.6 H (0.0-7.3) % D-Dimer 336.01 H (0-234) ng/mlDDU Chloride 96.5 L (98-107) mmol/L Glucose 148 H (65-100) mg/dL - Imaging and Cardiology EKG: image reviewed Chest x-ray: report reviewed CT scan - chest: report reviewed Assessment and Plan Assessment Chest pain Coronary artery disease Dilated cardiomyopathy Diabetes Hypertension Chronic pain Neuropathy Admit to medicine Check cardiac enzymes, consult cardiology Start IV morphine, and check fingersticks initiate insulin sliding scale Continue appropriate outpatient medication and start DVT prophylaxis
[2019-06-27] MEDS ORDERED: TYLENOL PO PRN (23:23)
[2019-06-27] MEDS ORDERED: D50W (25GM) Syringe IV PRN ×2 (23:23→23:24)
[2019-06-27] MEDS ORDERED: SODIUM CHLORIDE FLUSH SYRINGE 10 ML IV PRN (23:23)
[2019-06-27] MEDS ORDERED: ZOFRAN IV PRN (23:23)
[2019-06-28 08:02] LABS: Basophils # (Auto) 0.1 K/mm3 (0.0-0.1); Basophils % (Auto) 1.1 % (0.0-1.8); Eosinophils # (Auto) 0.2 K/mm3 (0.0-0.4); Eosinophils % (Auto) 2.9 % (0.0-4.3); Hematocrit 35.6 % (30.3-42.9); Hemoglobin 11.9 gm/dl (10.1-14.3); Lymphocytes # (Auto) 2.7 K/mm3 (1.2-5.4); Lymphocytes % (Auto) 35.3 % (13.4-35.0); Mean Corpuscular HGB Conc 33 % (30-34); Mean Corpuscular Volume 92 fl (79-97); Monocytes # (Auto) 0.7 K/mm3 (0.0-0.8); Monocytes % (Auto) 9.4 % (0.0-7.3); Platelet Count 216 K/mm3 (140-440); Red Blood Count 3.88 M/mm3 (3.65-5.03); Red Cell Distribution Width 13.4 % (13.2-15.2)
[2019-06-28] MEDS: HumaLOG SUB-Q SCH ×4 (08:30→21:45)
[2019-06-28 08:39] LABS: BUN/Creatinine Ratio 22; Blood Urea Nitrogen 13 mg/dL (7-17); Calcium 9.3 mg/dL (8.4-10.2); Hemolysis Index 22
[2019-06-28] MEDS: MORPHINE IV PRN ×3 (08:59→20:42)
[2019-06-28] MEDS: SODIUM CHLORIDE FLUSH SYRINGE 10 ML IV SCH ×2 (09:01→21:46)
[2019-06-28] MEDS: LOVENOX SUB-Q SCH (10:40)
--- NOTE | 2019-06-28 11:56 | Progress Note ---
Assessment and Plan Assessment and plan: Chest pain. Continue chest pain pathway. Cardiology consultation pending. Coronary artery disease. Patient reportedly had a stress test 1 year ago that was found to be negative. Dilated cardiomyopathy. Diabetes mellitus type 2. Continue Accu-Cheks and sliding scale insulin. Hypertension. Continue antihypertensive medications. Peripheral neuropathy. History Interval history: No new issues overnight. Patient reports reproducible pain with palpation of the chest wall. Hospitalist Physical - Constitutional Vitals: Temp Pulse Resp BP Pulse Ox 97.4 F L 83 16 143/95 96 06/28/19 08:11 06/28/19 08:57 06/28/19 08:59 06/28/19 08:57 06/28/19 11:41 General appearance: Present: no acute distress, well-nourished - EENT Eyes: Present: PERRL, EOM intact ENT: hearing intact, clear oral mucosa, dentition normal - Neck Neck: Present: supple, normal ROM - Respiratory Respiratory effort: normal Respiratory: bilateral: CTA - Cardiovascular Rhythm: regular Heart Sounds: Present: S1 & S2. Absent: gallop, rub - Extremities Extremities: no ischemia, No edema, Full ROM - Abdominal General gastrointestinal: soft, non-tender, non-distended, normal bowel sounds - Integumentary Integumentary: Present: clear, warm, dry - Neurologic Neurologic: CNII-XII intact, moves all extremities Results - Labs CBC & Chem 7: 06/28/19 07:40 06/28/19 07:40 Labs: Laboratory Last Values WBC 7.5 K/mm3 (4.5-11.0) 06/28/19 07:40 RBC 3.88 M/mm3 (3.65-5.03) 06/28/19 07:40 Hgb 11.9 gm/dl (10.1-14.3) 06/28/19 07:40 Hct 35.6 % (30.3-42.9) 06/28/19 07:40 MCV 92 fl (79-97) 06/28/19 07:40 MCH 31 pg (28-32) 06/28/19 07:40 MCHC 33 % (30-34) 06/28/19 07:40 RDW 13.4 % (13.2-15.2) 06/28/19 07:40 Plt Count 216 K/mm3 (140-440) 06/28/19 07:40 Lymph % (Auto) 35.3 % (13.4-35.0) H 06/28/19 07:40 [place] % (Auto) 9.4 % (0.0-7.3) H 06/28/19 07:40 Eos % (Auto) 2.9 % (0.0-4.3) 06/28/19 07:40 Baso % (Auto) 1.1 % (0.0-1.8) 06/28/19 07:40 Lymph # 2.7 K/mm3 (1.2-5.4) 06/28/19 07:40 [place] # 0.7 K/mm3 (0.0-0.8) 06/28/19 07:40 Eos # 0.2 K/mm3 (0.0-0.4) 06/28/19 07:40 Baso # 0.1 K/mm3 (0.0-0.1) 06/28/19 07:40 Seg Neutrophils % 51.3 % (40.0-70.0) 06/28/19 07:40 Seg Neutrophils # 3.8 K/mm3 (1.8-7.7) 06/28/19 07:40 336.01 ng/mlDDU (0-234) H 06/27/19 20:39 Sodium 140 mmol/L (137-145) 06/28/19 07:40 Potassium 4.4 mmol/L (3.6-5.0) 06/28/19 07:40 Chloride 98.2 mmol/L (98-107) 06/28/19 07:40 Carbon Dioxide 28 mmol/L (22-30) 06/28/19 07:40 18 mmol/L 06/28/19 07:40 BUN 13 mg/dL (7-17) 06/28/19 07:40 0.6 mg/dL (0.7-1.2) L 06/28/19 07:40 Estimated GFR > 60 ml/min 06/28/19 07:40 22 % 06/28/19 07:40 Glucose 133 mg/dL (65-100) H 06/28/19 07:40 POC Glucose 131 (70-105) H 06/28/19 07:24 Calcium 9.3 mg/dL (8.4-10.2) 06/28/19 07:40 0.20 mg/dL (0.1-1.2) 06/27/19 18:50 AST 13 units/L (5-40) 06/27/19 18:50 ALT 10 units/L (7-56) 06/27/19 18:50 79 units/L (35-129) 06/27/19 18:50 < 0.010 ng/mL (0.00-0.029) 06/27/19 22:35 NT-Pro-B Natriuret Pep 79.15 pg/mL (0-900) 06/27/19 20:39 7.5 g/dL (6.3-8.2) 06/27/19 18:50 4.2 g/dL (3.9-5) 06/27/19 18:50 1.3 % 06/27/19 18:50 Active Medications - Current Medications Current Medications: Generic Name Dose Route Start Last Admin Trade Name Freq PRN Reason Stop Dose Admin Acetaminophen 650 mg 06/27/19 23:23 Tylenol PO Q4H PRN Pain MILD(1-3)/Fever >100.5/BURCIAGA Dextrose 50 ml 06/27/19 23:23 D50w (25gm) Syringe IV PRN PRN Hypoglycemia Enoxaparin Sodium 40 mg 06/28/19 10:00 06/28/19 10:40 Lovenox SUB-Q 40 mg QDAY ALLIE Administration Hydralazine HCl 5 mg 06/27/19 22:32 Apresoline IV Q6H PRN Hypertension Insulin Human Lispro 0 unit 06/28/19 07:30 06/28/19 08:30 Humalog SUB-Q Not Given [facility] [place] Protocol Morphine Sulfate 2 mg 06/27/19 22:32 06/28/19 08:59 Morphine IV 2 mg Q4H PRN Administration Pain, Moderate (4-6) Ondansetron HCl 4 mg 06/27/19 23:23 Zofran IV Q8H PRN Nausea And Vomiting Sodium Chloride 10 ml 06/28/19 10:00 06/28/19 09:01 Sodium Chloride Flush Syringe 10 Ml IV 10 ml BID ALLIE Administration Sodium Chloride 10 ml 06/27/19 23:23 Sodium Chloride Flush Syringe 10 Ml IV PRN PRN LINE FLUSH
--- NOTE | 2019-06-28 13:51 | Consultation ---
History of Present Illness Consult date: 06/28/19 Consult reason: chest pain History of present illness: The patient is a 49-year-old woman with obesity and chronic chest pain. She has had extensive prior cardiac ischemic workup, including a cardiac catheterization 3 years ago, which reported a 40-50% stenosis of the mid LAD, otherwise normal coronary arteries. More recently, 10 months ago a Lexiscan thallium stress test in this hospital was normal. She is readmitted with left sided chest pain which she localizes to underneath her left breast, nonexertional, but may have a somewhat positional component. EKG was normal sinus rhythm, normal ECG. Chest x-ray was without acute findings. Cardiac consultation was requested for further assessment. A Lexiscan thallium stress test has been ordered by the internal medicine service. Past History Past Medical History: CAD, diabetes, hypertension, other (obesity) Medications and Allergies Allergies Allergy/AdvReac Type Severity Reaction Status Date / Time cyclobenzaprine HCl Allergy Hives Verified 02/15/19 17:42 [From [facility]] Home Medications Medication Instructions Recorded Confirmed Last Taken Type Nortriptyline(Nf) [Pamelor(Nf)] 75 mg PO QHS 11/30/15 06/28/19 06/27/19 History ALPRAZolam [Xanax TAB] 1 mg PO TID 03/23/16 06/28/19 06/27/19 History Insulin Glargine [Lantus VIAL] 30 unit SUB-Q QHS #3 vial 02/28/18 06/28/19 06/27/19 Rx Carvedilol [Coreg] 3.125 mg PO BID 05/22/18 06/28/19 06/27/19 History HYDROcodone/APAP 10-325 [[place] 1 each PO Q8HR PRN 05/22/18 06/28/19 06/27/19 History 10-325 mg TAB] Lisinopril/Hydrochlorothiazide 1 each PO BID 07/15/18 06/28/19 06/27/19 History [Zestoretic 20-12.5 mg] Lispro Insulin [HumaLOG] 5 unit SQ TIDWM 07/15/18 06/28/19 06/27/19 History AtorvaSTATin [Lipitor] 10 mg PO QHS 06/28/19 06/28/19 06/27/19 History Sertraline [Zoloft] 25 mg PO QDAY 06/28/19 06/28/19 06/27/19 History risperiDONE [Risperdal] 2 mg PO QHS 06/28/19 06/28/19 06/27/19 History Active Meds: Active Medications Acetaminophen (Tylenol) 650 mg PO Q4H PRN PRN Reason: Pain MILD(1-3)/Fever >100.5/BURCIAGA Dextrose (D50w (25gm) Syringe) 50 ml IV PRN PRN PRN Reason: Hypoglycemia Enoxaparin Sodium (Lovenox) 40 mg SUB-Q QDAY [facility] Last Admin: 06/28/19 10:40 Dose: 40 mg Documented by: Hydralazine HCl (Apresoline) 5 mg IV Q6H PRN PRN Reason: Hypertension Insulin Human Lispro (Humalog) 0 unit SUB-Q ACHS [facility]; Protocol Last Admin: 06/28/19 12:09 Dose: 3 unit Documented by: Morphine Sulfate (Morphine) 2 mg IV Q4H PRN PRN Reason: Pain, Moderate (4-6) Last Admin: 06/28/19 08:59 Dose: 2 mg Documented by: Ondansetron HCl (Zofran) 4 mg IV Q8H PRN PRN Reason: Nausea And Vomiting Sodium Chloride (Sodium Chloride Flush Syringe 10 Ml) 10 ml IV BID [facility] Last Admin: 06/28/19 09:01 Dose: 10 ml Documented by: Sodium Chloride (Sodium Chloride Flush Syringe 10 Ml) 10 ml IV PRN PRN PRN Reason: LINE FLUSH Review of Systems Cardiovascular: chest pain, shortness of breath, no orthopnea, no palpitations, no rapid/irregular heart beat, no edema, no syncope, no lightheadedness Physical Examination Vital Signs Temp Pulse Resp BP Pulse Ox 98.2 F 85 18 174/100 99 06/27/19 18:41 06/27/19 18:41 06/27/19 18:41 06/27/19 18:41 06/27/19 18:41 General appearance: obese HEENT: Positive: PERRL Neck: Positive: neck supple Cardiac: Positive: Reg Rate and Rhythm Lungs: Positive: Decreased Breath Sounds Neuro: Positive: Grossly Intact Abdomen: Positive: Soft Female genitourinary: deferred Skin: Positive: Clear Extremities: Absent: edema Results 06/28/19 07:40 06/28/19 07:40 Cardiac Enzymes 06/27/19 Range/Units 18:50 AST 13 (5-40) units/L CBC 06/27/19 06/28/19 Range/Units 18:50 07:40 WBC 9.6 7.5 (4.5-11.0) K/mm3 RBC 3.84 3.88 (3.65-5.03) M/mm3 Hgb 12.1 11.9 (10.1-14.3) gm/dl Hct 35.3 35.6 (30.3-42.9) % Plt Count 223 216 (140-440) K/mm3 Lymph # 2.9 2.7 (1.2-5.4) K/mm3 [place] # 0.7 0.7 (0.0-0.8) K/mm3 Eos # 0.2 0.2 (0.0-0.4) K/mm3 Baso # 0.1 0.1 (0.0-0.1) K/mm3 Comprehensive Metabolic Panel 06/27/19 06/28/19 Range/Units 18:50 07:40 Sodium 138 140 (137-145) mmol/L Potassium 4.1 4.4 (3.6-5.0) mmol/L Chloride 96.5 L 98.2 (98-107) mmol/L Carbon Dioxide 30 28 (22-30) mmol/L BUN 12 13 (7-17) mg/dL Creatinine 0.7 0.6 L (0.7-1.2) mg/dL Glucose 148 H 133 H (65-100) mg/dL Calcium 9.8 9.3 (8.4-10.2) mg/dL AST 13 (5-40) units/L ALT 10 (7-56) units/L Alkaline Phosphatase 79 (35-129) units/L Total Protein 7.5 (6.3-8.2) g/dL Albumin 4.2 (3.9-5) g/dL EKG interpretations - Telemetry EKG Rhythm: Sinus Rhythm Assessment and Plan - Patient Problems (1) Chest pain Current Visit: Yes Status: Acute Plan to address problem: Chest pain is atypical, EKG and cardiac enzymes are negative. Patient has had extensive cardiac workup as described above, including a cardiac catheterization 3 years ago. After rule out protocol, will proceed with a Lexiscan thallium stress test for chest pain assessment, to evaluate for any progression of LAD disease.
[2019-06-29] MEDS: HumaLOG SUB-Q SCH ×2 (07:30→12:30)
[2019-06-29] MEDS: MORPHINE IV PRN (08:06)
[2019-06-29] MEDS: LOVENOX SUB-Q SCH (09:32)
[2019-06-29] MEDS: SODIUM CHLORIDE FLUSH SYRINGE 10 ML IV SCH (09:33)
[2019-06-29] MEDS ORDERED: LEXISCAN IV ONE (10:12)
--- NOTE | 2019-06-29 10:13 | Progress Note ---
Hospitalist Physical - Constitutional Vitals: Temp Pulse Resp BP Pulse Ox 98.0 F 94 H 15 142/103 96 06/29/19 07:41 06/29/19 08:03 06/29/19 08:36 06/29/19 08:03 06/29/19 09:03 General appearance: Present: obese Results - Labs CBC & Chem 7: 06/28/19 07:40 06/28/19 07:40 Labs: Laboratory Last Values WBC 7.5 K/mm3 (4.5-11.0) 06/28/19 07:40 RBC 3.88 M/mm3 (3.65-5.03) 06/28/19 07:40 Hgb 11.9 gm/dl (10.1-14.3) 06/28/19 07:40 Hct 35.6 % (30.3-42.9) 06/28/19 07:40 MCV 92 fl (79-97) 06/28/19 07:40 MCH 31 pg (28-32) 06/28/19 07:40 MCHC 33 % (30-34) 06/28/19 07:40 RDW 13.4 % (13.2-15.2) 06/28/19 07:40 Plt Count 216 K/mm3 (140-440) 06/28/19 07:40 Lymph % (Auto) 35.3 % (13.4-35.0) H 06/28/19 07:40 [place] % (Auto) 9.4 % (0.0-7.3) H 06/28/19 07:40 Eos % (Auto) 2.9 % (0.0-4.3) 06/28/19 07:40 Baso % (Auto) 1.1 % (0.0-1.8) 06/28/19 07:40 Lymph # 2.7 K/mm3 (1.2-5.4) 06/28/19 07:40 [place] # 0.7 K/mm3 (0.0-0.8) 06/28/19 07:40 Eos # 0.2 K/mm3 (0.0-0.4) 06/28/19 07:40 Baso # 0.1 K/mm3 (0.0-0.1) 06/28/19 07:40 Seg Neutrophils % 51.3 % (40.0-70.0) 06/28/19 07:40 Seg Neutrophils # 3.8 K/mm3 (1.8-7.7) 06/28/19 07:40 336.01 ng/mlDDU (0-234) H 06/27/19 20:39 Sodium 140 mmol/L (137-145) 06/28/19 07:40 Potassium 4.4 mmol/L (3.6-5.0) 06/28/19 07:40 Chloride 98.2 mmol/L (98-107) 06/28/19 07:40 Carbon Dioxide 28 mmol/L (22-30) 06/28/19 07:40 18 mmol/L 06/28/19 07:40 BUN 13 mg/dL (7-17) 06/28/19 07:40 0.6 mg/dL (0.7-1.2) L 06/28/19 07:40 Estimated GFR > 60 ml/min 06/28/19 07:40 22 % 06/28/19 07:40 Glucose 133 mg/dL (65-100) H 06/28/19 07:40 POC Glucose 113 (70-105) H 06/29/19 07:26 Calcium 9.3 mg/dL (8.4-10.2) 06/28/19 07:40 0.20 mg/dL (0.1-1.2) 06/27/19 18:50 AST 13 units/L (5-40) 06/27/19 18:50 ALT 10 units/L (7-56) 06/27/19 18:50 79 units/L (35-129) 06/27/19 18:50 < 0.010 ng/mL (0.00-0.029) 06/27/19 22:35 NT-Pro-B Natriuret Pep 79.15 pg/mL (0-900) 06/27/19 20:39 7.5 g/dL (6.3-8.2) 06/27/19 18:50 4.2 g/dL (3.9-5) 06/27/19 18:50 1.3 % 06/27/19 18:50 Active Medications - Current Medications Current Medications: Generic Name Dose Route Start Last Admin Trade Name Renzo PRN Reason Stop Dose Admin Acetaminophen 650 mg 06/27/19 23:23 Tylenol PO Q4H PRN Pain MILD(1-3)/Fever >100.5/BURCIAGA Dextrose 50 ml 06/27/19 23:23 D50w (25gm) Syringe IV PRN PRN Hypoglycemia Enoxaparin Sodium 40 mg 06/28/19 10:00 06/29/19 09:32 Lovenox SUB-Q 40 mg QDAY ALLIE Administration Hydralazine HCl 5 mg 06/27/19 22:32 Apresoline IV Q6H PRN Hypertension Insulin Human Lispro 0 unit 06/28/19 07:30 06/29/19 07:30 Humalog SUB-Q Not Given ACHS [facility] Protocol Morphine Sulfate 2 mg 06/27/19 22:32 06/29/19 08:06 Morphine IV 2 mg Q4H PRN Administration Pain, Moderate (4-6) Ondansetron HCl 4 mg 06/27/19 23:23 Zofran IV Q8H PRN Nausea And Vomiting Sodium Chloride 10 ml 06/28/19 10:00 06/29/19 09:33 Sodium Chloride Flush Syringe 10 Ml IV 10 ml BID ALLIE Administration Sodium Chloride 10 ml 06/27/19 23:23 Sodium Chloride Flush Syringe 10 Ml IV PRN PRN LINE FLUSH
[2019-06-29 12:27] VITALS: BP 159/69
--- NOTE | 2019-06-29 13:14 | Event Note ---
Date: 06/29/19 [facility] thallium stress test is normal.
[2019-06-29] MEDS ORDERED: NON-FORMULARY (Lisinopril/Hydrochlorothiazide [Zestoretic 20-12.5 Mg] 1 EACH) PO SCH (13:30)
[2019-06-29] MEDS ORDERED: NORCO 10/325 PO PRN (13:51)
[2019-06-29] MEDS ORDERED: XANAX PO SCH (14:00)
[2019-06-29] MEDS ORDERED: COREG PO SCH (14:00)
[2019-06-29] MEDS ORDERED: ZOLOFT PO SCH (15:00)
--- NOTE | 2019-06-29 15:01 | Discharge Summary ---
Providers - Providers Date of Admission: 06/29/19 09:36 Date of discharge: 06/29/19 Attending physician: EDWIGE DORADO 06/27/19 23:23 Consult to Physician [CONS] Routine Comment: Consulting Provider: EDWIGE HAGAN Physician Instructions: Reason For Exam: cp Primary care physician: [facility] MD JOSE LUIS Hospitalization Condition: Fair Disposition: DC-01 TO HOME OR SELFCARE Exam - Constitutional Vitals: Temp Pulse Resp BP Pulse Ox 98.0 F 78 16 159/69 99 06/29/19 07:41 06/29/19 10:00 06/29/19 10:00 06/29/19 11:49 06/29/19 10:00 Plan Activity: no restrictions Diet: low fat, low cholesterol, low salt Plan of Treatment: 1.Follow up with PCP in 1 week. 2.Follow up with Dr. Hagan in 1 week 3.Follow up with Dr. Cast GI in 1 week 4.Continue Protonix Assessment: 1.Chest pain due to GERD Follow up with: PATTY FULTON MD [Primary Care Provider] - 3-5 Days
[2019-06-29] MEDS ORDERED: ZESTRIL PO SCH (16:00)
[2019-06-29] MEDS ORDERED: HCTZ PO SCH (16:00)
[2019-06-29] MEDS ORDERED: HumaLOG SUB-Q SCH (17:00)
--- NOTE | 2019-06-29 18:12 | Treadmill Report ---
THALLIUM STRESS TEST LEFT VENTRICLE: Left ventricular chamber size is within normal spread. Perfusion study demonstrates homogeneous uptake of the tracer in all segments, no significant perfusion defects identified. Gated analysis demonstrates normal left ventricular systolic function, ejection fraction 74%. CONCLUSION: Normal myocardial perfusion study. JOB# [id number] CA/NTS
[2019-06-29] MEDS ORDERED: PAMELOR PO SCH (22:00)
[2019-06-29] MEDS ORDERED: RisperDAL PO SCH (22:00)
[2019-06-29] MEDS ORDERED: NON-FORMULARY (Risperidone [Risperdal] 2 MG) PO SCH (22:00)
[2019-06-29] MEDS ORDERED: LANTUS SUB-Q SCH (22:00)
[2019-06-29] MEDS ORDERED: NORTRIPTYLINE 75 MG PO SCH (22:00)
== END 2019-06-29 16:35 | disposition home or self-care (01) | DRG 392 ==
LOC: ED 18:18 → 4A 22:30 → OBSVTOIN 06-29 09:36
PROVIDERS: ADMIT Internal Medicine; ATTEND Internal Medicine
DX: K21.9 Gastro-esophageal reflux disease without esophagitis (principal); I10 Essential (primary) hypertension; I25.10 Atherosclerotic heart disease of native coronary artery without angina pectoris; I42.0 Dilated cardiomyopathy; E11.42 Type 2 diabetes mellitus with diabetic polyneuropathy; I16.0 Hypertensive urgency; E66.9 Obesity, unspecified; G89.29 Other chronic pain; F41.9 Anxiety disorder, unspecified; I11.0 Hypertensive heart disease with heart failure; I50.9 Heart failure, unspecified; M19.90 Unspecified osteoarthritis, unspecified site; Z79.899 Other long term (current) drug therapy; Z79.4 Long term (current) use of insulin; Z82.49 Family history of ischemic heart disease and other diseases of the circulatory system; Z82.3 Family history of stroke; I25.2 Old myocardial infarction
CPT/HCPCS: 36415; 71046; 71275; 78452; 80048; 80053; 82962; 83880; 84484; 85025; 85379; 93005; 93010; 93017; 96372; 96374; 96375; G0378; A9502; J0360; J1650; J1815; J2270; J2785; Q9967

== ENCOUNTER 2019-07-08 14:21 | Emergency (ER) | payer MEDICAID ==
[2019-07-08 14:29] VITALS: BP 196/107
--- NOTE | 2019-07-08 14:41 | Emergency Department Report ---
Blank Doc - Documentation Documentation: 49-year-old female that presents with epigastric abdominal pain. This initial assessment/diagnostic orders/clinical plan/treatment(s) is/are subject to change based on patient's health status, clinical progression and re- assessment by fellow clinical providers in the ED. Further treatment and workup at subsequent clinical providers discretion. Patient/guardians urged not to elope from the ED as their condition may be serious if not clinically assessed and managed. Initial orders include: 1- Patient sent to [facility] for further evaluation and treatment 2- labs
[2019-07-08 14:59] LABS: Basophils # (Auto) 0.1 K/mm3 (0.0-0.1); Basophils % (Auto) 1.1 % (0.0-1.8); Eosinophils # (Auto) 0.3 K/mm3 (0.0-0.4); Eosinophils % (Auto) 2.8 % (0.0-4.3); Hematocrit 38.9 % (30.3-42.9); Lymphocytes # (Auto) 3.4 K/mm3 (1.2-5.4); Lymphocytes % (Auto) 35.7 % (13.4-35.0); Mean Corpuscular HGB Conc 34 % (30-34); Mean Corpuscular Volume 91 fl (79-97); Monocytes # (Auto) 0.7 K/mm3 (0.0-0.8); Monocytes % (Auto) 7.2 % (0.0-7.3); Platelet Count 293 K/mm3 (140-440); Red Blood Count 4.27 M/mm3 (3.65-5.03); Red Cell Distribution Width 13.6 % (13.2-15.2)
[2019-07-08 17:07] LABS: Alanine Aminotransferase 11 units/L (7-56); Albumin 4.3 g/dL (3.9-5); BUN/Creatinine Ratio 17; Blood Urea Nitrogen 12 mg/dL (7-17); Calcium 10.1 mg/dL (8.4-10.2); Hemolysis Index 26
== END 2019-07-08 17:15 | disposition left against medical advice (07) ==
LOC: ED 14:21
DX: R10.13 Epigastric pain (principal); Z53.21 Procedure and treatment not carried out due to patient leaving prior to being seen by health care provider
CPT/HCPCS: 36415; 80053; 83690; 85025